=== PATIENT | female | born 1955 | race Two or more races ===

== ENCOUNTER → 2024-06-18 | Outpatient (CLI) | payer OTHER, SELFPAY ==
--- NOTE | 2024-06-18 15:30 | XR_ITS ---
Examination: PA lateral chest 2 views TECHNIQUE: Upright PA lateral chest 2 views Exam date and time: June 18, 2024 1537 hours Comparison January 13, 2024 INDICATIONS: Shortness breath chest pain beginning 10 days ago. FINDINGS: Mild CHF Mild to moderate enlargement cardiac contour Prominent vascular congestion including central vascular engorgement Septal edema at the lung bases IMPRESSION: Mild CHF Pulmonary artery hypertension Cardiac leads stable position
[2024-06-18 16:39] LABS: Basophils % (Auto) 0 % (0-2.5); Eosinophils # (Auto) 0.1 Thou/mm3 (0.0-0.5); Eosinophils % (Auto) 2 % (0-10); Hematocrit 24.5 % (36.0-46.0); Immature Granulocytes % (Auto) 1 % (0-0); Immature Granulocytes Auto 0.03 Thou/mm3 (0.00-0.00); Lymphocytes # (Auto) 0.8 Thou/mm3 (1.0-4.8); Lymphocytes % (Auto) 12 % (10-50); Mean Corpuscular HGB Conc 32.2 g/dl (31.0-37.0); Mean Corpuscular Hemoglobin 33.1 pg (25.0-35.0); Mean Corpuscular Volume 103 fL (80-100); Monocytes # (Auto) 0.5 Thou/mm3 (0.0-0.8); Monocytes % (Auto) 7 % (0-12); Neutrophils % (Auto) 78 % (37-80); Nucleated Red Blood Cell % 0 /100 WBC (0); Platelet Count 155 Thou/mm3 (140-440); RDW Standard Deviation 51.2 fL (36.4-46.3); Red Blood Count 2.39 Miln/mm3 (4.00-5.20); White Blood Count 6.4 Thou/mm3 (3.6-11.0)
[2024-06-18 17:06] LABS: B-Type Natriuretic Peptide 404 pg/mL (0-100)
[2024-06-18 17:23] LABS: Alanine Aminotransferase 10 U/L (10-49); Albumin/Globulin Ratio 2.1 (1.2-2.2); Alkaline Phosphatase 73 U/L (46-116); Anion Gap 6 (7-16); Aspartate Amino Transferase 11 U/L (0-34); BUN/Creatinine Ratio 21 Ratio (12-20); Bilirubin,Total 0.3 mg/dL (0.3-1.2); Blood Urea Nitrogen 27 mg/dL (9-23); Calcium 8.7 mg/dL (8.3-10.6); Calcium (Corrected) 8.7 mg/dL (8.5-10.1); Carbon Dioxide 23.2 mMol/L (20.0-31.0); Chloride 110 mMol/L (98-107); Creatinine (Component) 1.3 mg/dL (0.6-1.3); Globulin 1.9 gm/dL (2.3-3.5); Glucose 109 mg/dL (74-106); Osmolality,Calculated 283 (275-295); Potassium 4.3 mMol/L (3.4-5.1); Sodium 139 mMol/L (136-145); Total Protein 5.9 gm/dL (5.7-8.2); eGFR 44 See Note
[2024-06-18 17:32] LABS: Hemoglobin 7.9 g/dL (12.0-16.0)
[2024-06-18 17:44] LABS: Glucose Estimated Average 103 mg/dL (80-131); Hemoglobin A1C 5.2 % Hgb (4.8-6.0)
== END | disposition home or self-care (01) ==
LOC: COPL 15:15 → CDIM 15:20 → COPL 15:45
PROVIDERS: PCP Internal Medicine; Referring Provider Internal Medicine; Visit Provider Radiology Diagnostic Radiology
DX: I50.9 Heart failure, unspecified (principal); I27.21 Secondary pulmonary arterial hypertension; F41.8 Other specified anxiety disorders; M54.50 Low back pain, unspecified; N18.9 Chronic kidney disease, unspecified; R06.02 Shortness of breath
CPT/HCPCS: 36415; 71046; 80053; 83036; 83880; 85025

== ENCOUNTER 2024-06-20 11:41 | Inpatient (IN) | payer OTHER, MEDICARE, SELFPAY ==
[2024-06-20] VITALS (75 sets, daily range): BP systolic 69–219; BP diastolic 42–88; PULSE 0–80; RESP 13–37; TEMP 33.1–35; O2SAT 89–100; BMI 24.7; BMI 27.2
--- NOTE | 2024-06-20 11:45 | PC.NURSE ---
PT ARRIVED AT 1141 CODE BLUE, SEE CODE SHEET. PT WITNESSED CODE AT HOME
[2024-06-20] MEDS: SODIUM CHLORIDE 0.9% IV ×2 (11:50→14:38)
[2024-06-20] MEDS: EPINEPHRINE IV ×2 (11:50→14:38)
--- NOTE | 2024-06-20 11:52 | XR_ITS ---
Examination: AP chest single view TECHNIQUE: AP portable supine chest single view Exam date and time: June 20, 2024 1219 hours Comparison June 18, 2024 INDICATIONS: Cardiopulmonary arrest today FINDINGS: Interval extensive bilateral lung opacity Mild enlargement cardiac contour Tracheal tube tip 18 mm above janis Cardiac leads satisfactory position Orogastric tube in the stomach tip below the level film No pneumothoraces Clavicles ribs appear grossly intact IMPRESSION: Extensive bilateral lung opacity, pneumonia and/or pulmonary edema, aspiration pneumonia included in the differential No pneumothoraces Endotracheal tube tip 18 mm above janis
[2024-06-20 12:02] LABS: Basophils # (Auto) 0.1 Thou/mm3 (0.0-0.2); Basophils % (Auto) 0 % (0-2.5); Eosinophils # (Auto) 0.2 Thou/mm3 (0.0-0.5); Eosinophils % (Auto) 1 % (0-10); Hematocrit 27.3 % (36.0-46.0); Immature Granulocytes % (Auto) 4 % (0-0); Lymphocytes # (Auto) 2.5 Thou/mm3 (1.0-4.8); Lymphocytes % (Auto) 22 % (10-50); Mean Corpuscular HGB Conc 29.7 g/dl (31.0-37.0); Mean Corpuscular Hemoglobin 33.2 pg (25.0-35.0); Mean Corpuscular Volume 112 fL (80-100); Monocytes # (Auto) 0.8 Thou/mm3 (0.0-0.8); Monocytes % (Auto) 7 % (0-12); Neutrophils # (Auto) 7.3 Thou/mm3 (1.8-7.7); Neutrophils % (Auto) 65 % (37-80); Nucleated Red Blood Cell % 1 /100 WBC (0); Platelet Count 191 Thou/mm3 (140-440); RDW Standard Deviation 54.8 fL (36.4-46.3); Red Blood Count 2.44 Miln/mm3 (4.00-5.20); White Blood Count 11.3 Thou/mm3 (3.6-11.0)
[2024-06-20 12:05] LABS: Hemoglobin 8.1 g/dL (12.0-16.0)
--- NOTE | 2024-06-20 12:11 | PC.NURSE ---
PER DR. WHEATLEY GIVE 500 ML BOLUS AND OKAYED TO USE EMS LR BAG
--- NOTE | 2024-06-20 12:14 | PC.NURSE ---
DR. WHEATLEY DID STOOL OCB AND POSITIVE
[2024-06-20 12:15] LABS: Alanine Aminotransferase 33 U/L (10-49); Albumin, Serum 3.8 gm/dL (3.4-4.8); Albumin/Globulin Ratio 1.9 (1.2-2.2); Alcohol, Blood Medical < 3.0 mg/dL (0-10.0); Alkaline Phosphatase 78 U/L (46-116); Anion Gap 11 (7-16); Aspartate Amino Transferase 36 U/L (0-34); BUN/Creatinine Ratio 16 Ratio (12-20); Bilirubin,Total 0.2 mg/dL (0.3-1.2); Blood Urea Nitrogen 22 mg/dL (9-23); Calcium 8.7 mg/dL (8.3-10.6); Calcium (Corrected) 8.9 mg/dL (8.5-10.1); Chloride 110 mMol/L (98-107); Creatinine (Component) 1.4 mg/dL (0.6-1.3); Estimated Creatinine Clearance 33.6 mL/min (>60); Glucose 308 mg/dL (74-106); Osmolality,Calculated 283 (275-295); Potassium 5.1 mMol/L (3.4-5.1); Sodium 134 mMol/L (136-145); Total Protein 5.8 gm/dL (5.7-8.2); eGFR 40 See Note
[2024-06-20 12:20] LABS: Carbon Dioxide 12.8 mMol/L (20.0-31.0); Troponin I 0.097 ng/mL (0.0-0.045)
[2024-06-20 12:21] LABS: B-Type Natriuretic Peptide 553 pg/mL (0-100)
--- NOTE | 2024-06-20 12:44 | PC.NURSE ---
DR. WHEATLEY INFORMED THAT PT MOVING AND ORDER FOR PROPOFOL OBTAINED
[2024-06-20 12:47] LABS: Base Excess -19 (-3-3); HCO3 12 mEq/L (20-26); Inspired Oxygen, FIO2 100 %; O2 Saturation 96 % (91-98); PCO2 61 mmHg (32.0-48.0); PO2 115 mmHg (83-108)
[2024-06-20 12:50] LABS: Allen Test Performed/OK; Puncture Site Left Radial
[2024-06-20] MEDS: PROPOFOL 1,000 MG IVPB 1,000 MG/100 ML VIAL 1.905 MG IV (12:50)
[2024-06-20 12:52] LABS: pH, Arterial 6.91 (7.35-7.45)
--- NOTE | 2024-06-20 13:00 | PC.NURSE ---
I UNIT PACKED CELLS INFUSED WITHOUT REACTION. PER DR. WHEATLEY TO GIVE BLOOD WIDE OPEN
--- NOTE | 2024-06-20 13:00 | PD.EDCPR ---
ED CPR RME/HPI General Chief Complaint: Cardiac Arrest/CPR Stated Complaint: CODE BLUE Time Seen by Provider: 06/20/24 11:49 Arrival date/time: 06/20/24 11:41 RME / HPI RME / HPI narrative: 68 year old female with history of HFrEF 40-45% 01/2024, cardiomyopathy, AFib, s/p AICD, hypertension, GI bleed, iron deficiency anemia requiring iron transfusions every 2 weeks presents to the ED BIBA from home as a code blue. Per medics, on scene reported the patient was sitting on the toilet and was found on the floor, presumed she slipped off the toilet. Medics report giving Epinephrine x3, Atropine x1, and intubated en route. On arrival to ED, ROSC was not achieved and CPR is in progress. Patient was transferred from [facility] to [facility] and CPR resumed. in the ED is unable to provide any additional history and is a poor historian. Related Data Home Medications ?Medication ?Instructions ?Recorded ?Confirmed furosemide 80 mg tablet (Lasix) 80 mg PO QDAY #0 tabs 07/07/14 01/12/24 potassium chloride 20 mEq 20 meq PO QDAY ##0 07/07/14 01/12/24 tablet,extended release(part/cryst) (Klor-Con M) sertraline 100 mg tablet (Zoloft) 100 mg PO BID #0 tabs 11/15/16 01/12/24 sacubitril 24 mg-valsartan 26 mg 1 tab PO BID 04/05/22 01/12/24 tablet (Entresto) alprazolam 1 mg tablet 1.5 mg PO DAILY PRN Anxiety 03/18/23 01/12/24 carvedilol 12.5 mg tablet 12.5 mg PO BID 03/18/23 01/12/24 metformin 850 mg tablet 850 mg PO DAILY 03/18/23 01/12/24 hydrocodone 10 mg-acetaminophen 1 tab PO Q6H PRN Pain (Scale Score 01/12/24 01/12/24 325 mg tablet 7-10) Allergies Allergy/AdvReac Type Severity Reaction Status Date / Time ampicillin Allergy Severe Difficulty Verified 03/19/23 00:15 Breathing carranza Allergy Intermediate Rash Verified 03/19/23 00:15 aspirin AdvReac Severe BLEEDING Verified 03/19/23 00:15 ULCER Review of Systems Review of Systems Narrative Review of Systems: Unobtainable due to code blue status Past Medical History Past Medical History NEUROLOGIC: Positive Migraine CARDIAC: Positive Cardiac Disorders, Atrial Fibrillation, Coronary Artery Disease, Hypercholesterolemia, Congestive Heart Failure, Cardiomyopathy, Hypertension and Hypotension GASTROINTESTINAL: Positive Gastrointestinal Disorders, Gall Bladder Disease and Gastroesophageal Reflux Disease MUSCULOSKELETAL: Positive Musculoskeletal Disorders, Arthritis and Fractures ENDOCRINE: Positive Endocrine Disorders and Diabetes Mellitus Type 2 HEMATOLOGIC: Positive Blood Disorders and Anemia PSYCHO/SOCIAL: Positive Depression OTHER HISTORY: Positive Hospitalization, Falls and Blood Transfusions Family History FAMILY HISTORY: Positive Family Psychiatric Problems, Family Cardiac Disorders (dad-ID) and Family Cancer (sister) Surgical History SURGICAL: Positive Pacemaker and Hysterectomy Social History SMOKING STATUS: Unknown if ever smoked SECOND HAND EXPOSURE: No SUBSTANCE USE: does not use ED Exam Narrative Physical exam: Exam performed after ROSC GEN. APPEARANCE: On arrival patient is in cardiac-respiratory arrest with CPR in progress. VITALS: Hypotensive, stated on Dopamine and Epinephrine drips HEENT: Normocephalic, atraumatic. ET tube size 7 from the field. Throat clear. Pupils are fixed and dilated. NECK: Supple, no JVD. CHEST: No deformity and no crepitus. ABDOMEN: Soft, distended, no air bubble. RECTAL EXAM: Stool is black and tarry, guaiac strongly positive. EXTREMITIES: Flaccid. No spontaneous movements. No edema. SKIN: Cool and dry, no rashes noted. NEURO: GCS is 3. Course Course Course Narrative: chest xray ordered to help determine ET and OG tube placement Quality Measures none Orders Category Date Time Status 24 HR Medical Restraints Q2HR Care 06/20/24 12:36 Completed Musical Instrument Mechanic Q4H START 00 Care 06/20/24 11:52 Active Emergency Titration Protocol Stat Care 06/20/24 12:13 Ordered Fuentes [Urinary Catheter] QS Care 06/20/24 11:52 Active Insert NG / OG tube NOW Care 06/20/24 12:17 Completed Transfuse,blood/blood products NOW Care 06/20/24 12:16 Active XR chest 1V portable Stat Exams 06/20/24 11:52 Completed ABG [Arterial Blood Gas] Stat Lab 06/20/24 12:44 Completed Alcohol, Blood Medical Stat Lab 06/20/24 11:46 Completed BNP [B-Type Natriuretic Peptide] Stat Lab 06/20/24 11:46 Completed CBC Stat Lab 06/20/24 11:46 Completed CMP [Comprehensive Metabolic Panel] Stat Lab 06/20/24 11:46 Completed Drug Screen,Urine Stat Lab 06/20/24 11:54 Ordered Troponin I Stat Lab 06/20/24 11:46 Completed Type and Screen Stat Lab 06/20/24 12:27 Results prbc [Red Blood Cells] Stat Lab 06/20/24 12:27 Results DOPamine/D5w 400 MG IVPB [Intropin in D5w Ivpb] Med 06/20/24 12:18 Discontinued 400 mg in 250 ml IV 5 mcg/kg/min DOPamine/D5w 400 MG IVPB [Intropin in D5w Ivpb] Med 06/20/24 12:30 Active 400 mg in 250 ml IV 5 mcg/kg/min Propofol 1,000 mg Ivpb [Diprivan Ivpb] Med 06/20/24 12:43 Active 1,000 mg in 100 ml IV 5 mcg/kg/min Ringers Lactated 1000 ml [Lactated Ringers] 1,000 ml Med 06/20/24 13:19 Active IV 999 mls/hr Sodium Chloride 0.9% 250 ml [Ns] 234 ml Med 06/20/24 11:53 Discontinued EPINEPHrine Inj [Adrenalin Inj] 16 mg IV 0.05 mcg/kg/min Sodium Chloride 0.9% 250 ml [Ns] 234 ml Med 06/20/24 11:54 Discontinued EPINEPHrine Inj [Adrenalin Inj] 16 mg IV 0.05 mcg/kg/min Sodium Chloride 0.9% 250 ml [Ns] 246 ml Med 06/20/24 12:03 Active EPINEPHrine Inj [Adrenalin Inj] 4 mg IV 0.05 mcg/kg/min Sodium Chloride 0.9% 250 ml [Ns] 250 ml Med 06/20/24 12:00 Discontinued EPINEPHrine Inj [Adrenalin Inj] 4 mg IV 0.05 mcg/kg/min fentaNYL 2,500 MCG/250 ML BAG [Sublimaze Inj 2,500 MCG/ Med 06/20/24 13:13 Active 250 ML BAG] 2,500 mcg in 250 ml IV 50 mcg/hr Mechanical [Volume Ventilator] Stat RT 06/20/24 Active Vital Signs Vital signs: Vital Signs Pulse Rate 60 06/20/24 11:00 Respiratory Rate 18 06/20/24 11:00 Blood Pressure 108/79 06/20/24 11:00 Pulse Oximetry (%) 96 06/20/24 11:00 Cardiac Arrest / CPR MDM Narrative MDM Narrative:: Brought into the emergency department by ambulance from home. The patient was seen for CODE BLUE status. Amusement Park Ride Mechanic already intubated the patient en route to the hospital. 3 epinephrine boluses was given by envelope stuffer en route. And CPR was in progress upon arrival. We took over CPR continue and ACLS protocol was followed. Eventually the patient regained her pulses. But remain comatose. IV epinephrine drip was given post code. History of GI bleed therefore I did rectal examination on the patient in the presence of nurses. Stool was tarry black and guaiac was strongly positive. Hemoglobin was 8 therefore I am giving the patient 1 unit of O- blood. While we waiting for the rest of the blood test results come back. Hemoglobin of 8. Bicarb of 13 status post CODE BLUE. Creatinine 1.4. Blood sugar is 300. Troponin is 0.0 97. BNP is 550. Alcohol level is negative. Talk screen is still pending. Chest x-ray postintubation and CODE BLUE read by me: Evidence of CHF bilaterally versus pneumonia bilaterally. Heart is enlarged. AICD is in place. No pneumothorax. No broken bones. Twelve-lead EKG that was done at 11:55 AM post successful resuscitation read by me: Pacemaker rhythm with 100% capture. Regular rate and rhythm. Widened QRS complex consistent with pacemaker AICD. Left axis deviation. In the emergency department the patient was given up to 600 mL of Ringer lactate, IV epinephrine drip continuously running, and 1 unit of packed red blood cell was given to the patient. Vital signs have improved and stable. Blood pressure was 120/70. 1:07 PM, I spoke to and discussed with Dr. Larios, integrated marketing specialist on-call. She agrees to admit the patient for further evaluation and treatment. Thank you very much Critical care time is approximately 55 minutes excluding any procedure. The high probability of sudden, clinically significant deterioration in the patient?s condition required the highest level of my preparedness to intervene urgently. The services I provided to this patient were to treat and/or prevent clinically significant deterioration. Services included the following: chart data review, reviewing nursing notes and/or old charts, documentation time, renewable energy consultant collaboration regarding findings and treatment options, medication orders and management, direct patient care, vital sign assessments and ordering, interpreting and reviewing diagnostic studies and lab tests. Aggregate critical care time includes only time during which I was engaged in work directly related to the patient?s care, as described above, whether at bedside or elsewhere in the Emergency Department. It did not include time spent performing other reported procedures or the services of residents, students, nurses or physician assistants. Patient data External records reviewed:: [facility] previous records (I reviewed admission from 01/11/2024 through 01/15/2024 ) and EMS form Clinical information provided by:: EMS Social determinants that could affect healthcare access:: none Patient has the following chronic illnesses:: HFrEF 40-45% 01/2024, cardiomyopathy, AFib, s/p AICD, hypertension, GI bleed, iron deficiency anemia requiring iron transfusions every 2 weeks How is presenting disease/condition affected by chronic disease/condition?: exacerbated by Evaluation data The following diagnostics were reviewed and interpreted by me:: lab results, radiology exam(s) and EKG tracing(s) Lab and/or radiology exams considered but not ordered:: None Interpretation Summary: Ordering Physician: Otto Pulliam MD Date of Service: 06/20/24 Procedure(s): XR chest 1V portable Accession Number(s): [id number] cc: Bull Justice MD; Otto Pulliam MD; Niyah Calix MD~ Examination: AP chest single view TECHNIQUE: AP portable supine chest single view Exam date and time: June 20, 2024 1219 hours Comparison June 18, 2024 INDICATIONS: Cardiopulmonary arrest today FINDINGS: Interval extensive bilateral lung opacity Mild enlargement cardiac contour Tracheal tube tip 18 mm above janis Cardiac leads satisfactory position Orogastric tube in the stomach tip below the level film No pneumothoraces Clavicles ribs appear grossly intact IMPRESSION: Extensive bilateral lung opacity, pneumonia and/or pulmonary edema, aspiration pneumonia included in the differential No pneumothoraces Endotracheal tube tip 18 mm above janis Dictated By: Bull Justice MD Signed By: <Electronically signed by Bull Justice MD in OV> 06/20/24 1254 Medications / Prescriptions Medications or Prescriptions considered but not ordered:: None Medication administrations:: Medication Administration History Epinephrine HCl 4 mg/ Sodium (Chloride) 250 mls @ 11.907 mls/hr IV .Q21H PRN; Protocol PRN Reason: Per Protocol Stop: 07/20/24 11:59 Last Titration: 06/20/24 13:00 Dose: 0.48 mcg/kg/min, 114.305 mls/hr Documented By: Titration: 06/20/24 12:11 Dose: 0.5 mcg/kg/min, 119.068 mls/hr Documented By: Titration: 06/20/24 12:07 Dose: 0.09 mcg/kg/min, 21.432 mls/hr Documented By: Titration: 06/20/24 12:02 Dose: 0.07 mcg/kg/min, 16.67 mls/hr Documented By: Admin: 06/20/24 11:50 Dose: 0.05 mcg/kg/min, 11.907 mls/hr Documented By: KDC Dopamine HCl/Dextrose (Intropin In D5w Ivpb) 400 mg in 250 mls @ 11.907 mls/hr IV .Q21H NATHAN; Protocol Stop: 07/20/24 12:29 Propofol (Diprivan Ivpb) 1,000 mg in 100 mls @ 1.905 mls/hr IV .Q24H PRN; Protocol PRN Reason: PER PROTOCOL Stop: 07/20/24 12:42 Last Titration: 06/20/24 13:26 Dose: 15 mcg/kg/min, 5.715 mls/hr Documented By: Titration: 06/20/24 13:10 Dose: 10 mcg/kg/min, 3.81 mls/hr Documented By: Admin: 06/20/24 12:50 Dose: 5 mcg/kg/min, 1.905 mls/hr Documented By: KDC Co-signed By: IAN Fentanyl Citrate (Sublimaze Inj 2,500 Mcg/250 Ml Bag) 2,500 mcg in 250 mls @ 5 mls/hr IV .Q24H PRN; Protocol PRN Reason: PER PROTOCOL Stop: 06/25/24 13:12 Last Admin: 06/20/24 13:24 Dose: 50 mcg/hr, 5 mls/hr Documented By: KDC Co-signed By: IAN Lactated Ringer's (Lactated Ringers) 1,000 mls @ 999 mls/hr IV .Q1H1M ONE Stop: 06/20/24 14:19 Discontinued Medications Epinephrine HCl 16 mg/ Sodium (Chloride) 250 mls @ 2.977 mls/hr IV .Q24H PRN; Protocol PRN Reason: Per Protocol Stop: 07/20/24 11:52 Epinephrine HCl 16 mg/ Sodium (Chloride) 250 mls @ 2.977 mls/hr IV .Q24H PRN; Protocol PRN Reason: Per Protocol Stop: 07/20/24 11:53 Epinephrine HCl 4 mg/ Sodium (Chloride) 254 mls @ 12.097 mls/hr IV .Q21H PRN; Protocol PRN Reason: Per Protocol Stop: 07/20/24 11:59 Dopamine HCl/Dextrose (Intropin In D5w Ivpb) 400 mg in 250 mls @ 11.907 mls/hr IV .Q21H NATHAN; Protocol Stop: 07/20/24 12:17 See above Consultations Consultation(s) initiated? (list below): Yes Consultation #1 (Physician, Specialty, Details): I spoke with mcat instructor Dr. Larios as noted above. Diagnosis Most likely diagnosis given after review of the tests above:: Cardiac arrest anemia Admission Indicated Admission indicated?: indicated Admission Request Was there a request for admission?: Yes Admission Attestation Admission request attestation: Discussed case with [] from Hospitalist service regarding admission. Discussed patients ED course, exam findings, labs, and radiology results. The Hospitalist [agrees,declines] to accept the patient for admission. Disposition Plan Disposition Plan: Admit Critical Care Time Critical Care Time Critical Care Time: Yes Total Critical Care Time (min.): 55 Attestation: The high probability of sudden, clinically significant deterioration in the patient's condition required the highest level of my preparedness to intervene urgently. The services I provided to this patient were to treat and/or prevent clinically significant deterioration. Services included the following: chart data review, reviewing nursing notes and/or old charts, documentation time, renewable energy consultant collaboration regarding findings and treatment options, medication orders and management, direct patient care, vital sign assessments and ordering, interpreting and reviewing diagnostic studies and lab tests. Aggregate critical care time includes only time during which I was engaged in work directly related to the patient's care, as described above, whether at bedside or elsewhere in the Emergency Department. It did not include time spent performing other reported procedures or the services of residents, students, nurses or physician assistants. Discharge Plan Plan Patient Disposition: Admit Acute Care w/in Hospital Disposition Comment: Stable for admit to ICU Prescriptions/Referrals Prescriptions/Med Rec: No Action potassium chloride [Klor-Con M20] 20 MEQ tablet,ER particles/crystals 20 meq PO QDAY Qty: 0 furosemide [Lasix] 80 MG tablet 80 mg PO QDAY Qty: 0 Hold Instructions: Resume on 01/17/24. start lasix same day resuming warfarin 01/17/2024 sertraline [Zoloft] 100 MG tablet 100 mg PO BID Qty: 0 Entresto 24-26 mg Tablet 1 tab PO BID carvedilol 12.5 mg tablet 12.5 mg PO BID alprazolam 1 mg tablet 1.5 mg PO DAILY PRN (Reason: Anxiety) metformin 850 mg tablet 850 mg PO DAILY hydrocodone-acetaminophen 10-325 mg tablet 1 tab PO Q6H PRN (Reason: Pain (Scale Score 7-10)) Referrals: Niyah Calix MD [Primary Care Provider] - In 1 week Problem List Clinical Impression: Cardiac arrest, Anemia, Stool guaiac positive Patient/Caregiver Discharge Instructions Print Language: Setswana Stand Alone Forms: Serina Award Info., Patient Portal Info Letter
--- NOTE | 2024-06-20 13:21 | PC.NURSE ---
DR. COLE IN ROOM TO EVALUATE PT AND THERE WAS DELAY IN TITRATING MEDICATIONS
[2024-06-20] MEDS: fentaNYL 2,500 MCG/250 ML BAG 2,500 MCG/250 ML BAG IV (13:24)
--- NOTE | 2024-06-20 13:31 | PC.NURSE ---
DR. WHEATLEY DID STOOL OCB THEN THREW SLIDE AWAY. PER MD OCB POSITIVE
[2024-06-20] MEDS: RINGERS LACTATED 1000 ML 1,000 ML 999 ML IV (13:33)
--- NOTE | 2024-06-20 13:36 | PC.NURSE ---
RESIDENTS HERE TO SEE PT
--- NOTE | 2024-06-20 13:37 | PC.NURSE ---
PER DR. WHEATLEY ONLY GIVEN 1 UNIT PACKED CELLS
--- NOTE | 2024-06-20 13:45 | PC.NURSE ---
PER DR. HARVEY ARROYO TESCT
--- NOTE | 2024-06-20 13:46 | PC.NURSE ---
DELAYED TITRATING DRIPS DUE TO MULTIPLE DOCTORS IN ROOM SEEING PT
--- NOTE | 2024-06-20 13:55 | PC.NURSE ---
PT FINALLY HAS SMALL AMOUNT URINE IN ELMORE TUBING
--- NOTE | 2024-06-20 14:00 | ESPR_ITS ---
Documentation for date of: 06/20/24 Subjective Subjective Interval history: This is a 68yo F who was brought to the ER s/p cardiac arrest. Apparently she was in the bathroom earlier today and had a syncopal event. EMS was called and on arrival she was found to be pulseless and CPR was initiated. ROSC was achieved after 3 rounds of epi. During transit pulse was lost once more and CPR resumed. Pt was undergoing CPR on arrival to the ER. ROSC was achieved after arrival and pt felt to have had a total downtime of ~20min. Pts initial rhythm is unknown. In the ER labs were obtained after ROSC as well as CXR. CXR shows diffuse fluffy infiltrates and labs are significant for severe acidosis. Rectal exam done in the ER showed a pos hemoccult. pt seen in ER room 2. Per family pt has has SOB for the last 2 days. She visited her PCP and had labs and a CXR done. Has had changes to her cardiac regimen over the last 2 months. This AM very SOB, went to the bathroom and called out for help then collapsed. Critical Care Note Critical care time (min.): 90 Exam Vital Signs Temp Pulse Resp BP Pulse Ox O2 Del Method O2 Flow Rate 95 F L 62 20 136/67 H 97 Mechanical Ventilation 15 06/20/24 12:55 06/20/24 13:01 06/20/24 13:01 06/20/24 13:01 06/20/24 13:01 06/20/24 12:00 06/20/24 11:41 FiO2 100 06/20/24 12:16 Narrative Exam Gen- ill appearing, myoclonic jerks of mouth and face, pupils dilated and minimally reactive, nl body habitus HEENT- NC/AT, mucosa hydated, sclera anicteric, pupils dilated, ETT/OGT in place Chest- diminished, no crackles/wheeze heard, HRRR, WOB noted Abd- distended, soft/bs present, no palp organomegaly, Ext- bruising over L distal LE, pulses palp, feet cool, Vent AC VC drips epi 0.5mcg/kg/min prop fent Physical Exam Completion Physical Exam Complete?: Yes Objective - Nutrition Services Worker Labs 06/21/24 03:35 06/21/24 03:35 Labs: Laboratory Results - last 24 hr 06/20/24 06/20/2424 11:46 12:27 12:44 WBC 11.3 H D RBC 2.44 L Hgb 8.1 L Hct 27.3 L MCV 112 H MCH 33.2 MCHC 29.7 L RDW Std Deviation 54.8 H Plt Count 191 D Neut % (Auto) 65 Lymph % (Auto) 22 [place] % (Auto) 7 Eos % (Auto) 1 Baso % (Auto) 0 Neut # (Auto) 7.3 Lymph # (Auto) 2.5 [place] # (Auto) 0.8 Eos # (Auto) 0.2 Baso # (Auto) 0.1 Immature Gran # (Auto) 0.50 H Absolute Nucleated RBC 0.10 H Immature Gran % 4 H Nucleated RBC % 1 H Puncture Site Left Radial ABG pH 6.91 L* ABG pCO2 61 H ABG pO2 115 H ABG HCO3 12 L ABG O2 Saturation 96 ABG Base Excess -19 L FiO2 100 Sodium 134 L Potassium 5.1 D Chloride 110 H Carbon Dioxide 12.8 L* Anion Gap 11 BUN 22 Creatinine 1.4 H Estim Creat Clear Calc 33.6 L eGFR 40 L BUN/Creatinine Ratio 16 Glucose 308 H D Calculated Osmolality 283 Calcium 8.7 Corrected Calcium 8.9 Total Bilirubin 0.2 L AST 36 H ALT 33 Alkaline Phosphatase 78 Troponin I 0.097 H* B-Natriuretic Peptide 553 H* Total Protein 5.8 Albumin 3.8 Globulin 2.0 L Albumin/Globulin Ratio 1.9 Ethyl Alcohol < 3.0 Blood Type A Positive Antibody Screen NEGATIVE Crossmatch See Detail Blood Bank Wristband ID Yes Assessment & Plan Additional Assessment Additional Assessment: In brief this is a 68yo F admitted to the ICU s/p arrest 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 will obtain HCT for further eval. started on fentanyl and propofol for vent compliance CV s/p cardiac arrest- will place pt on TTM with goal 36c, avoid hyperthermia shock- in a post arrest setting of unclear etiology. Will obtain additional data with [facility] for hemodynamics and bedside echo. when seen pt had initially not received any IVF and was then ordered for 2lts of IVF. started on abx, currently on epi which is being titrated down. LA noted to be elevated. HFrEF- s/p ICD, BNP noted to be elevated, will diures when able, device will be interrogated Pulmonary HTN- noted on prior echo Resp Acute Resp failure- s/p intubation and on MV, CXR noted with fluffy infiltrates, ABG noted with resp acidosis and vent changes made. will repeat ABG to further eval. vent bundle Aspiration- likely occurred during down time, on abx for further coverage Pulmonary edema- will start diuresis when able Respiratory acidosis- Ve increased on vent and will recheck ABG Renal AMNA- likely due to hypotension, marsh in place, monitor UOP HypoNa- mild, monitor GI Transaminitis- fu on repeat CMP in AM GI proph- PPI ? GIB- reported as hemoccult pos with black stools therefore started on PPI, will recheck h/h Endo DM- SSI Heme Leukocytosis- likely reactive in nature Anemia- near baseline, will fu with repeat h/h as there was suspicion for GIB in the ER DVT proph- SCD for now ID on abx case d/w ICU team and ER Discussed with family labs, imaging, records reviewed ~90ccmin required for eval, exam, review, intervention, discussion and formulation of POC for this critically ill pt with acute resp failure and shock at high risk for further and ongoing decompensation. This does not include time for procedures. Provider Notation Provider Notation: Although this document has been carefully reviewed, there may still be some phonetic and other typographical errors. These errors are purely grammatical due to imperfections in the software program and should not be construed in any way to compromise the substance of the patient's medical care during this visit. Thank you for the opportunity and privilege in assisting you with this patient's care and management.
--- NOTE | 2024-06-20 14:01 | XR_ITS ---
Examination: CT brain head without contrast. 2-D sagittal coronal reconstructions Date and time of exam:June 20, 2024 1535 hours INDICATIONS: Post cardiopulmonary arrest today CTDI: vol (mGy):52.1 DLP: (mGycm):1144 Technique: Multiple CT axial sections of the brain have been obtained, 5 mm slice thickness. Contrast has not been administered. 2-D sagittal, coronal reconstructions have been obtained Low dose protocols were performed. One or more of the following dose reduction techniques were used; automated exposure control, adjustment of the mA and/or KV according to patient size, use of iterative reconstruction technique. Findings: No significant ventricular enlargement. Again noted calcified right parietal convexity mass, 3 cm consistent with incidental meningioma Intra-axial or extra-axial hemorrhage density is not seen. No mass effect or midline shift Basal cisterns are not remarkable. Fourth ventricle is midline. Cranial vault intact. Impression: Negative for acute hemorrhage, mass effect or midline shift Brain MRI follow-up would best assess for anoxic ischemic change, if the patient's cardiac leads are MRI compatible
[2024-06-20 14:06] LABS: Base Excess -15 (-3-3); HCO3 15 mEq/L (20-26); Inspired Oxygen, FIO2 100 %; O2 Saturation 99 % (91-98); PCO2 53 mmHg (32.0-48.0); PO2 159 mmHg (83-108)
[2024-06-20 14:09] LABS: Allen Test Performed/OK; Puncture Site Left Radial
[2024-06-20 14:10] LABS: pH, Arterial 7.06 (7.35-7.45)
--- NOTE | 2024-06-20 14:19 | PC.NURSE ---
PER DR. COLE TITRATE BOTH FENTANYL AND PROPOFOL TO -2 RASS
--- NOTE | 2024-06-20 14:25 | PC.NURSE ---
FAMILY BROUGHT INTO ROOM TO SEE PT AND QUESTIONS ANSWERED. INFORMED THAT PT WILL BE GOING TO ICU WHEN THE ROOM IS READY
--- NOTE | 2024-06-20 14:29 | ECHO_ITS ---
Transthoracic Echo Report Ht (in): 63 Wt (lb): 140 Exam Location: Echo Lab Status: Emergency Emissions Technician: Rizwana Moore Indications: Procedure Performed: BP: 121 / 58 HR: 28 Rhythm: Sinus Technical Quality: Technically difficult study MEASUREMENTS (Male / Female) Normal Values 2D ECHO LV Diastolic Diameter PLAX 4.3 cm 4.2 - 5.9 / 3.9 - 5.3 cm LV Systolic Diameter PLAX 3.7 cm IVS Diastolic Thickness 1.2 cm 0.6 - 1.0 / 0.6 - 0.9 cm LVPW Diastolic Thickness 1.3 cm 0.6 - 1.0 / 0.6 - 0.9 cm LV Relative Wall Thickness 0.6 LVOT Diameter 1.8 cm Aortic Root Diameter 2.7 cm LA Volume Index 67.2 cm?/m? 16 - 28 cm?/m? M-MODE AV Cusp Separation MM 1.7 cm DOPPLER AV Peak Velocity 189.0 cm/s AV Peak Gradient 14.3 mmHg AV Mean Gradient 8.0 mmHg AV Velocity Time Integral 61.1 cm LVOT Peak Velocity 102.0 cm/s LVOT Peak Gradient 4.2 mmHg LVOT Velocity Time Integral 23.4 cm LVOT Cardiac Index 985.7 cm?/min?m? AV Area Cont Eq vti 1.0 cm? AV Area Cont Eq pk 1.4 cm? MR Peak Velocity 623.0 cm/s MR Peak Gradient 155.3 mmHg LV E' Lateral Velocity 6.5 cm/s LV E' Septal Velocity 6.0 cm/s TR Peak Velocity 356.5 cm/s TR Peak Gradient 50.8 mmHg PV Peak Velocity 109.0 cm/s PV Peak Gradient 4.8 mmHg FINDINGS Left Ventricle Normal left ventricular size and systolic function with mild global hypokinesis no regional wall mot ion abnormalities.Mild LVH. The ejection fraction is visually estimated at 40-45%. Right Ventricle The right ventricle appears mildly dilated with normal systolic function. Left Atrium The left atrial cavity size is severely increased. Right Atrium Right atrium is not well visualized. Atrial Septum The interatrial septum appears normal with no evidence of a shunt. Aorta The aorta is normal by two-dimensional, color flow and Doppler interrogation. Mitral Valve Severe mitral regurgitation. Aortic Valve The aortic valve is trileaflet and normal by two-dimensional, color flow and Doppler interrogation. There is no significant aortic valve regurgitation. Tricuspid Valve There is moderate tricuspid regurgitation. Pulmonic Valve The pulmonic valve is not well visualized. There is no significant pulmonic valve regurgitation. Vessels The pulmonary artery appears normal. The inferior vena cava pulmonary and hepatic veins appear valente l. Pericardium The pericardium is normal by two-dimensional imaging. There is no significant pericardial effusion. CONCLUSIONS Indication: S/P code Blue Normal LV size. Mild LVH. Estimated EF 40- 45%. RV appears mildly dilated with normal systolic function. Pacing leads seen Severely dilated LA. Severe 3-4+mitral regurgitation Moderate tricuspid regurgitation Moderate pulmonary hypertension PAP est 60 mm hG Donna Valero (Electronically Signed) Final Date: 22 June 2024 10:07
[2024-06-20 14:37] LABS: Lactate (Lactic Acid) 3.7 mMol/L (0.4-2.0)
--- NOTE | 2024-06-20 14:40 | PC.NURSE ---
DELAY TITRATING EPI DUE TO NEED TO MIX NEW BAG
[2024-06-20] MEDS: PANTOPRAZOLE INJ 40 MG VIAL IVP (14:49)
[2024-06-20 14:55] LABS: Collection Type, Urine Catheter
[2024-06-20 15:03] LABS: Bilirubin,Urine Negative (Negative); Blood,Urine 2+ (Negative); Color,Urine Yellow (Lt Yel-Yel); Glucose, Urine 4+ (Negative); Ketones,Urine Negative (Negative); Leukocyte Esterase,Urine Negative (Negative); Nitrite,Urine Negative (Negative); Protein,Urine 2+ (Neg - Trace); RBC,Urine 76 /hpf (0-3); Specific Gravity,Urine 1.014 (1.001-1.035); Squamous Epithelial Cell,Urine 5 /hpf (0-5); Urobilinogen,Urine Negative mg/dL (0.0-1.0); WBC,Urine 24 /hpf (0-5)
[2024-06-20 15:06] LABS: Clarity,Urine Hazy (Clear/Hazy)
[2024-06-20 15:11] LABS: Amphetamine/Methamp Scrn,U Negative (Negative); Barbiturate Screen,Urine Negative (Negative); Benzodiazepines Screen,Urine Positive (Negative); Benzoylecgonine Screen, Ur Negative (Negative); Fentanyl Screen,Urine Positive (Negative); Opiate Screen,Urine Negative (Negative); THC Screen,Urine Negative (Negative)
--- NOTE | 2024-06-20 15:31 | PC.NURSE ---
PT TAKEN TO CT AND EPI TITRATION NOT DONE
--- NOTE | 2024-06-20 16:03 | ESHP_ITS ---
<Statement entered by Johanny Keyes MD - 06/23/24 05:23> Patient was seen and examined by me personally. I have directly supervised and reviewed the above documentation by the team resident and agree with its findings with any exceptions or additional findings as below. Plan of care was discussed with the attending, Dr. Larios. Johanny Keyes, PGY-2 Documentation for date of: 06/20/24 HPI History of Present Illness Chief complaint: status post cardiac arrest History of present illness: The patient is a 68-year-old female with a previous medical history of HFpEF EF 40-45% 01/27, nonischemic cardiomyopathy, W[employer]ER-D placement, A-fib on warfarin (chart review), hypertension, anemia who was brought to the ED by EMS in cardiac arrest. Exact time of the cardiac arrest is unknown, most of the history was received per chart review, she was seated on the toilet and slumped over. According to the family, she experienced shortness of reath and chest discomfort in the previous day and visitied her PCP. Also family reported when she lost consciousness, she did not fall, just slumped over, did not hit her head. She arrived to the ED at 11:41, on the way she received epinephrine 1 mg 3 times, atropine and was intubated. After 4 minutes of resuscitation measures in the ED and 1 round of epi, ROSC was obtained. The total down time is unknown but estimated to be at least 20 minutes. Her blood pressure was low and she was started on epinephrine drip, she was also started on propofol and fentanyl for sedation. Labs showed leukocytosis, anemia 8.1, INR 4.0. ABG showed severe acidosis. Sodium 134, bicarb 12.8, creatinine 1.4, troponin 0.097, BNP 553. U tox was done after starting fentanyl, was positive for benzodiazepines and fentanyl. UA showed 24 WBCs. Chest x-ray showed bilateral pneumonia, possible aspiration compared to the chest x-ray done on 06/18 which appears unremarkable. Patient was admitted to the ICU for shock and post-cardiac arrest management and treatment. Review of Systems Review of Systems ROS Unobtainable: unobtainable due to mental status, unobtainable due to medical condition and due to endotracheal tube Exam Vital Signs Temp Pulse Resp BP Pulse Ox O2 Del Method O2 Flow Rate 95 F L 60 28 H 85/42 L 97 Mechanical Ventilation 15 06/20/24 12:55 06/20/24 14:41 06/20/24 14:41 06/20/24 14:41 06/20/24 14:41 06/20/24 12:00 06/20/24 11:41 FiO2 100 06/20/24 12:16 Narrative Exam Gen: Well-developed and well-nourished. GCS 3. HEENT: NCAT, pupils equal, dilated 4 mm, sluggishly reactive to light, no gaze fixation, MMM, anicteric conjunctivae. CVS: normal S1 and S2. RRR. No M/R/G. Resp: CTA B/L. No rhonchi, rales, crackles or wheezing. Abd: soft, non-tender, non-distended. BS+ in all 4 quadrants. MSK: Good ROM in BUE & BLE. Mild ankle edema , no rash. Extremities are cold to the touch, poor capillary refill. Neuro: Alert and oriented x0. Pupils equal, dilated 4 mm, sluggishly reactive to light, no gaze fixation. Corneal reflex absent. During suctioning no cough. Bilateral facial and extremities muscles myoclonic jerks with forced eye opening. Babinski negative bilateral. Psych: impossible to assess due to condition. Results: Labs 06/21/24 03:35 06/21/24 03:35 Labs: Short CBC 06/20/24 Range/Units 11:46 WBC 11.3 H D (3.6-11.0) Thou/mm3 Hgb 8.1 L (12.0-16.0) g/dL Hct 27.3 L (36.0-46.0) % Plt Count 191 D (140-440) Thou/mm3 BMP 06/20/24 11:46 Sodium 134 L Potassium 5.1 D Chloride 110 H Carbon Dioxide 12.8 L* BUN 22 Creatinine 1.4 H Glucose 308 H D Calcium 8.7 Cardiac Enzymes 06/20/24 Range/Units 11:46 Troponin I 0.097 H* (0.0-0.045) ng/mL Liver Function 06/20/24 Range/Units 11:46 Total Bilirubin 0.2 L (0.3-1.2) mg/dL AST 36 H (0-34) U/L ALT 33 (10-49) U/L Alkaline Phosphatase 78 (46-116) U/L Albumin 3.8 (3.4-4.8) gm/dL Urine 06/20/24 Range/Units 14:43 Urine Color Yellow (Lt Yel-Yel) Urine Clarity Hazy (Clear/Hazy) Urine pH 6.0 (5.0-7.0) Ur Specific [place] 1.014 (1.001-1.035) Urine Protein 2+ A (Neg - Trace) Urine Glucose (UA) 4+ A (Negative) ABG Interpretation ABG results: 06/20/24 06/20/24 12:44 13:58 ABG pH 6.91 L* 7.06 L* D ABG pCO2 61 H 53 H ABG pO2 115 H 159 H D ABG HCO3 12 L 15 L ABG O2 Saturation 96 99 H ABG Base Excess -19 L -15 L Quality Measures Quality Measures none Advance care planning discussed with:: other Medications Home Medications and Allergies Home Medications ?Medication ?Instructions ?Recorded ?Confirmed ?Type furosemide 80 mg tablet (Lasix) 20 mg PO QDAY #0 tabs 07/07/14 06/20/24 History potassium chloride 20 mEq 20 meq PO QDAY ##0 07/07/14 06/20/24 History tablet,extended release(part/cryst) (Klor-Con M) sertraline 100 mg tablet (Zoloft) 100 mg PO BID #0 tabs 11/15/16 06/20/24 History sacubitril 24 mg-valsartan 26 mg 1 tab PO BID 04/05/22 01/12/24 History tablet (Entresto) alprazolam 1 mg tablet 1.5 mg PO DAILY PRN Anxiety 03/18/23 06/20/24 History carvedilol 12.5 mg tablet 12.5 mg PO BID 03/18/23 06/20/24 History hydrocodone 10 mg-acetaminophen 1 tab PO Q6H PRN Pain (Scale Score 01/12/24 06/20/24 History 325 mg tablet 7-10) warfarin 5 mg tablet 5 mg 06/20/24 History Allergies Allergy/AdvReac Type Severity Reaction Status Date / Time ampicillin Allergy Severe Difficulty Verified 03/19/23 00:15 Breathing carranza Allergy Intermediate Rash Verified 03/19/23 00:15 aspirin AdvReac Severe BLEEDING Verified 03/19/23 00:15 ULCER Visit Medications Acetaminophen (Acetaminophen 325 Mg Tablet) 650 mg PO Q4HR PRN PRN Reason: Temp >98.6 or Pain Stop: 07/20/24 14:18 Acetaminophen (Acetaminophen Supp 650 Mg Supp) 650 mg AR Q4HR PRN PRN Reason: Temp >98.6 or Pain Stop: 07/20/24 14:18 Heparin Sodium (Porcine) (Heparin Sod Inj 5000 Unit/Ml Vial) 5,000 unit SC Q12HR NATHAN Stop: 07/04/24 20:59 Epinephrine HCl 4 mg/ Sodium (Chloride) 250 mls @ 11.907 mls/hr IV .Q21H PRN; Protocol PRN Reason: Per Protocol Stop: 07/20/24 11:59 Last Titration: 06/20/24 15:29 Dose: 0.4 mcg/kg/min, 95.255 mls/hr Propofol (Diprivan Ivpb) 1,000 mg in 100 mls @ 1.905 mls/hr IV .Q24H PRN; Protocol PRN Reason: PER PROTOCOL Stop: 07/20/24 12:42 Last Titration: 06/20/24 15:11 Dose: 35 mcg/kg/min, 13.336 mls/hr Fentanyl Citrate (Sublimaze Inj 2,500 Mcg/250 Ml Bag) 2,500 mcg in 250 mls @ 5 mls/hr IV .Q24H PRN; Protocol PRN Reason: PER PROTOCOL Stop: 06/25/24 13:12 Last Titration: 06/20/24 15:11 Dose: 50 mcg/hr, 5 mls/hr Cefepime HCl 2 gm/ Sodium (Chloride) 50 mls @ 100 mls/hr IV Q12HR [facility] Stop: 06/27/24 15:38 Vancomycin HCl (Vancomycin/Water 1gm Ivpb) 200 mls @ 120 mls/hr IV QDAY@1400 [facility] Stop: 06/27/24 15:59 Pantoprazole Sodium (Pantoprazole Inj 40 Mg Vial) 40 mg IVP QDAY [facility] Stop: 07/20/24 14:29 Last Admin: 06/20/24 14:49 Dose: 40 mg Pharmacy Consult (Vancomycin Pharmacy To Dose 1 Each Each) 1 each IV QDAY PRN PRN Reason: PROTOCOL Stop: 07/20/24 15:44 Discontinued Medications Acetaminophen (Acetaminophen 325 Mg Tablet) 650 mg PO Q4HR PRN PRN Reason: Temp >100.4 or Pain Stop: 07/20/24 14:18 Acetaminophen (Acetaminophen Supp 650 Mg Supp) 650 mg AR Q4HR PRN PRN Reason: Temp >100.4 or Pain Stop: 07/20/24 14:18 Epinephrine HCl 16 mg/ Sodium (Chloride) 250 mls @ 2.977 mls/hr IV .Q24H PRN; Protocol PRN Reason: Per Protocol Stop: 07/20/24 11:52 Epinephrine HCl 16 mg/ Sodium (Chloride) 250 mls @ 2.977 mls/hr IV .Q24H PRN; Protocol PRN Reason: Per Protocol Stop: 07/20/24 11:53 Epinephrine HCl 4 mg/ Sodium (Chloride) 254 mls @ 12.097 mls/hr IV .Q21H PRN; Protocol PRN Reason: Per Protocol Stop: 07/20/24 11:59 Dopamine HCl/Dextrose (Intropin In D5w Ivpb) 400 mg in 250 mls @ 11.907 mls/hr IV .Q21H NATHAN; Protocol Stop: 07/20/24 12:29 Dopamine HCl/Dextrose (Intropin In D5w Ivpb) 400 mg in 250 mls @ 11.907 mls/hr IV .Q21H NATHAN; Protocol Stop: 07/20/24 12:17 Lactated Ringer's (Lactated Ringers) 1,000 mls @ 999 mls/hr IV .Q1H1M ONE Stop: 06/20/24 14:19 Last Infusion: 06/20/24 14:35 Dose: Infused Assessment & Plan Plan The patient is a 68-year-old female with a previous medical history of HFpEF EF 40-45% 01/27, nonischemic cardiomyopathy, [employer]ER-D placement, A-fib on warfarin (chart review), hypertension, anemia who was brought to the ED by EMS in cardiac arrest. Exact time of the cardiac arrest is unknown, most of the history was received per chart review, she was seated on the toilet and found slumped over. She arrived to the ED at 11: 41, on the way she received epinephrine 1 mg 3 times, atropine and was intubated. After 4 minutes of resuscitation measures, ROSC was obtained. Her blood pressure was low and she was started on epinephrine drip, she was also started on propofol and fentanyl for sedation. Patient was admitted to the ICU for shock and post-cardiac arrest management and treatment. NEURO # Acute encephalopathy Most likely due to hypoxic brain injury and prolonged cardiac arrest. GCS 3. Head CT 06/20: No signs of ischemic stroke, bleeding, fractures, 3 cm meningioma which is unlikely the cause of the encephalopathy. U tox was positive for benzodiazepines. Plan: ? May consider EEG in 12-24 hours ? Will possibly consider MRI in the future ? Euthermia, keep temperature at 36C CARDIO # Shock due to unknown reasons Differentials include: 1. Cardiogenic. 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 In the ED WAX PAT[employer] AS[employer]ER-D was pacing. 2. Septic. Patient has acute hypoxic respiratory failure and chest x-ray showed bilateral pneumonia. 3. Neurogenic. Unlikely, due to absence of trauma and stroke on the CT. 4. Obstructive. Patient has acute hypoxia, but CXR negative for pneumothorax, no signs of DVT, Wells score 0. Unlikely to be the cause of shock. Plan: ? NICOM to gather more hemodynamic data ? Echo ? Repeat EKG ? Will talk to the family to gather more history ? Wean off norepinephrine ? Start Levophed PULM # Acute hypoxic respiratory failure #Bilateral pneumonia #Respiratory acidosis Previous chest x-ray 06/18 showed mild CHF. Chest x-ray on 06/20 showed bilateral pneumonia. Also there are signs of possible pulmonary edema. Chest x-ray changes could also be attributed to aspiration. Ventilation settings were changed, RR was increased to 26 and then to 30. Patient is allergic to ampicillin, therefore Zosyn was not started. Plan: ? Sputum cultures pending ? Vancomycin 06/20?present ? Cefepime 06/20?present - Metronidazole 06/20-present ? Will start with empiric therapy, we will adjust according to the cultures. GI # History of GI bleed Plan: ? Protonix IV NEPHRO # AMNA #Metabolic acidosis with respiratory acidosis Most likely due to hypoxic injury in the setting of cardiac arrest and acute hypoxic respiratory failure. Plan: ? Patient has received 2 L of fluids ? Will continue to monitor CMP URO #No active problems HEME # Chronic anemia #Coagulopathy Patient has a history of chronic anemia and receiving blood transfusions. After arterial line placement, the site was oozing blood. After applying pressure for 30 minutes bleeding did not resolve. Plan: ? 1 units of FFP ? Tranexamic acid 1 g IV - DIC panel ENDO #No active problems ID #Bilateral pneumonia #Possible septic shock Plan: ? Blood cultures pending ? Urine cultures pending ? Sputum cultures pending ? Vancomycin 06/20?present ? Zosyn 06/20?present MSK #No active problems SKIN #No active problems DVT prophylaxis: none GI prophylaxis: protonix Diet: NPO Fuentes: Present Lines: peripheral, central, arterial Antibiotics: vancomycin + cefepime + metronidazole CODE STATUS: FULL CODE Reason for ICU care: shock due to unknown reasons and status post cardic arrest. Plan of care discussed with attending Dr. Larios, PGY-2 resident physician and PGY-[address] Mata. Cyndy Ramirez MD, PGY 1.
[2024-06-20 16:59] LABS: Basophils % (Auto) 0 % (0-2.5); Eosinophils % (Auto) 0 % (0-10); Hematocrit 26.6 % (36.0-46.0); Immature Granulocytes % (Auto) 2 % (0-0); Immature Granulocytes Auto 0.26 Thou/mm3 (0.00-0.00); Lymphocytes # (Auto) 0.3 Thou/mm3 (1.0-4.8); Lymphocytes % (Auto) 2 % (10-50); Mean Corpuscular HGB Conc 32.7 g/dl (31.0-37.0); Mean Corpuscular Hemoglobin 32.8 pg (25.0-35.0); Mean Corpuscular Volume 100 fL (80-100); Monocytes # (Auto) 1.1 Thou/mm3 (0.0-0.8); Monocytes % (Auto) 7 % (0-12); Neutrophils # (Auto) 15.3 Thou/mm3 (1.8-7.7); Neutrophils % (Auto) 90 % (37-80); Nucleated Red Blood Cell # 0.06 Thou/mm3 (0.00-0.00); Nucleated Red Blood Cell % 0 /100 WBC (0); Platelet Count 165 Thou/mm3 (140-440); RDW Standard Deviation 57.6 fL (36.4-46.3); Red Blood Count 2.65 Miln/mm3 (4.00-5.20); White Blood Count 17.1 Thou/mm3 (3.6-11.0)
[2024-06-20 17:06] LABS: Hemoglobin 8.7 g/dL (12.0-16.0)
[2024-06-20 17:33] LABS: Reflex Lactate? Y
--- NOTE | 2024-06-20 17:41 | XR_ITS ---
Examination: AP chest 2 views Technique: AP portable semiupright chest 2 views Exam date and time: June 20, 2024 1759 hrs. Indications: Hypoxic respiratory failure, post orogastric tube placement for central line placement Comparison: June 20, 2024 12:19 PM Findings: Orogastric tube in the stomach satisfactory position Enlarged cardiac contour again noted with prominent vascular congestion and edema and/or pneumonia diffusely in both lungs Tracheal tube tip 3.7 cm above janis Right internal jugular central line tip SVC No pneumothorax Stable position cardiac leads Prominent osteopenia Impression: Prominent heart failure, consider superimposed bilateral pneumonia Tracheal tube tip 3.7 cm above janis Right internal jugular central line tip SVC Orogastric tube in the stomach satisfactory position
[2024-06-20] MEDS: EPINEPHrine Inj 16 MG in SODIUM CHLORIDE 0.9% 250 ML 234 ML 21.432 MG IV (17:46)
[2024-06-20 18:03] LABS: Partial Thromboplastin Time 48.5 Seconds (22.0-36.0)
[2024-06-20 18:31] LABS: Base Excess -11 (-3-3); HCO3 17 mEq/L (20-26); Inspired Oxygen, FIO2 65 %; O2 Saturation 92 % (91-98); PCO2 41 mmHg (32.0-48.0); PO2 66 mmHg (83-108); pH, Arterial 7.22 (7.35-7.45)
[2024-06-20 18:32] LABS: Prothrombin Time 39.8 Seconds (9.0-12.2)
[2024-06-20 18:35] LABS: Allen Test Performed/OK; Puncture Site Left Radial
[2024-06-20] MEDS: metroNIDAZOLE/NS 500 MG IVPB 500 MG/100 ML BAG 200 MG IV (19:02)
[2024-06-20] MEDS: VANCOMYCIN/WATER 1GM IVPB 200 ML IV (19:15)
--- NOTE | 2024-06-20 19:27 | PD.INTPROC ---
Procedures Procedure Date / Time 06/20/241926 Arterial Line Indication(s): frequent arterial line sampling and shock Informed consent obtained: obtained from surrogate decision maker Time out done, and the following verified: correct patient, side and site, procedure and patient position Technique used: guide wire technique Post-Procedure: line sutured into place and dry sterile dressing placed Patient tolerated procedure: well and no complications EBL(ml): 15 Complications: excessive bleeding Site: right and femoral
[2024-06-20 19:37] LABS: Alanine Aminotransferase 213 U/L (10-49); Albumin, Serum 3.2 gm/dL (3.4-4.8); Albumin/Globulin Ratio 1.9 (1.2-2.2); Alkaline Phosphatase 245 U/L (46-116); Anion Gap 4 (7-16); Aspartate Amino Transferase 297 U/L (0-34); BUN/Creatinine Ratio 20 Ratio (12-20); Bilirubin,Total 0.5 mg/dL (0.3-1.2); Blood Urea Nitrogen 26 mg/dL (9-23); Calcium 7.5 mg/dL (8.3-10.6); Calcium (Corrected) 8.1 mg/dL (8.5-10.1); Carbon Dioxide 16.8 mMol/L (20.0-31.0); Chloride 111 mMol/L (98-107); Creatinine (Component) 1.3 mg/dL (0.6-1.3); Estimated Creatinine Clearance 36.8 mL/min (>60); Globulin 1.7 gm/dL (2.3-3.5); Glucose 340 mg/dL (74-106); Osmolality,Calculated 282 (275-295); Potassium 5.6 mMol/L (3.4-5.1); Sodium 132 mMol/L (136-145); Total Protein 4.9 gm/dL (5.7-8.2); eGFR 44 See Note
[2024-06-20 19:40] LABS: Troponin I 0.141 ng/mL (0.0-0.045)
--- NOTE | 2024-06-20 19:50 | PC.NURSE ---
at 1544 pt admit to unit to room 255
--- NOTE | 2024-06-20 19:51 | PC.NURSE ---
at [address] Larios, suction set to low intermitted suction
[2024-06-20] MEDS: TRANEXAMIC ACID 1,000 MG IVPB 1,000 MG/100 ML BAG 300 MG IV (19:55)
[2024-06-20] MEDS: PROPOFOL 1,000 MG IVPB 1,000 MG/100 ML VIAL 10.455 MG IV (20:00)
[2024-06-20] MEDS: CEFEPIME INJ 2 GM in SODIUM CHLORIDE 0.9% (P) 50 ML IV (20:28)
[2024-06-20] MEDS: PHYTONADIONE INJ 10 MG/ML AMP SC (20:38)
[2024-06-20 21:17] LABS: Basophils % (Auto) 0 % (0-2.5); Eosinophils % (Auto) 0 % (0-10); Hematocrit 25.6 % (36.0-46.0); Immature Granulocytes % (Auto) 1 % (0-0); Immature Granulocytes Auto 0.17 Thou/mm3 (0.00-0.00); Lymphocytes # (Auto) 0.3 Thou/mm3 (1.0-4.8); Lymphocytes % (Auto) 2 % (10-50); Mean Corpuscular HGB Conc 32.8 g/dl (31.0-37.0); Mean Corpuscular Hemoglobin 32.7 pg (25.0-35.0); Mean Corpuscular Volume 100 fL (80-100); Monocytes # (Auto) 1.1 Thou/mm3 (0.0-0.8); Monocytes % (Auto) 5 % (0-12); Neutrophils # (Auto) 17.7 Thou/mm3 (1.8-7.7); Neutrophils % (Auto) 92 % (37-80); Nucleated Red Blood Cell # 0.11 Thou/mm3 (0.00-0.00); Nucleated Red Blood Cell % 1 /100 WBC (0); Platelet Count 197 Thou/mm3 (140-440); Red Blood Count 2.57 Miln/mm3 (4.00-5.20); White Blood Count 19.3 Thou/mm3 (3.6-11.0)
[2024-06-20 21:24] LABS: D-Dimer > 3820 ng/mL (<600)
[2024-06-20 21:25] LABS: Hemoglobin 8.4 g/dL (12.0-16.0)
[2024-06-20] MEDS: fentaNYL CIT INJ 50 mCg/ML AMP 2ML 100 MCG IVP (21:25)
[2024-06-20 21:40] LABS: Fibrinogen 330 mg/dL (175-375); INR 4.8 (0.9-1.3); Partial Thromboplastin Time 55.1 Seconds (22.0-36.0)
[2024-06-20 21:49] LABS: Prothrombin Time 47.1 Seconds (9.0-12.2)
[2024-06-20] MEDS: SOD POLYSTYRENE SULFON SUSP 15 GM/60 ML BTL NG (22:07)
[2024-06-20 22:18] LABS: Base Excess -13 (-3-3); HCO3 15 mEq/L (20-26); Inspired Oxygen, FIO2 21 %; O2 Saturation 97 % (91-98); PCO2 45 mmHg (32.0-48.0); PO2 95 mmHg (83-108)
[2024-06-20] MEDS: LORazepam 2 MG/ML VIAL IVP (22:19)
[2024-06-20 22:29] LABS: Allen Test Not Performed; Puncture Site Arterial Line
[2024-06-20] MEDS: ALBUTEROL/IPRATROPIUM (Duoneb) RT SOL 3 ML NEBU INH (22:29)
[2024-06-20 22:30] LABS: pH, Arterial 7.14 (7.35-7.45)
[2024-06-20] MEDS: INSULIN HUM REGULAR 1 UNIT/0.01 ML (PER UNIT) 5 UNIT IV (22:41)
[2024-06-20] MEDS: DEXTROSE 50%-WATER INJ 50 ML SYRINGE IV (22:45)
[2024-06-20] MEDS: ROCURONIUM INJ 10 MG/ML VIAL 10 ML 50 MG IV (22:53)
--- NOTE | 2024-06-20 23:39 | PD.RESPROC ---
Procedures Procedure Date / Time 06/20/24 2339 Central Line Placement Right IJ: Indication(s): shock and poor, or inadequate peripheral venous access Informed consent obtained: implied Time out done, and the following verified: correct patient, side and site, procedure, patient position and implants and/or equipment Patient placed on monitor/pulse ox: Yes Hand Hygiene: alcohol-based hand rub Max Sterile Barrier Techniques used: cap, mask, sterile gown, sterile gloves and sterile full body drape Central line prep: Povidone-Iodine 1% and sterile drapes applied Ultrasound used for placement: Yes Sterile Technique if Ultrasound used, including sterile gel: yes Central line lumen inserted: triple Post procedure: sutured in place, good blood return, all ports aspirated, flushed, capped and sterile dressing applied Post procedure x-ray: tip of catheter in good position and no pneumothorax seen Patient tolerated procedure: well and no complications EBL(ml): 5 Complications: none Procedure comment: Right IJ central line was inserted by Dr. Ric Babin, PGY1
[2024-06-21] VITALS (100 sets, daily range): BP systolic 88–175; BP diastolic 41–95; PULSE 60–91; RESP 11–35; TEMP 35.7–36.2; O2SAT 92–100; BMI 28.3
[2024-06-21 00:18] LABS: Base Excess -12 (-3-3); HCO3 14 mEq/L (20-26); Inspired Oxygen, FIO2 21 %; O2 Saturation 99 % (91-98); PCO2 33 mmHg (32.0-48.0); PO2 116 mmHg (83-108); pH, Arterial 7.24 (7.35-7.45)
[2024-06-21 00:19] LABS: Allen Test Not Performed; Puncture Site Arterial Line
[2024-06-21] MEDS: PROPOFOL 1,000 MG IVPB 1,000 MG/100 ML VIAL 18.819 MG IV (01:39)
[2024-06-21] MEDS: fentaNYL 2,500 MCG/250 ML BAG 2,500 MCG/250 ML BAG 30 MCG IV (01:40)
[2024-06-21 01:59] LABS: Alanine Aminotransferase 199 U/L (10-49); Albumin, Serum 3.5 gm/dL (3.4-4.8); Albumin/Globulin Ratio 1.8 (1.2-2.2); Alkaline Phosphatase 239 U/L (46-116); Anion Gap 9 (7-16); Aspartate Amino Transferase 180 U/L (0-34); BUN/Creatinine Ratio 23 Ratio (12-20); Bilirubin,Total 0.4 mg/dL (0.3-1.2); Blood Urea Nitrogen 34 mg/dL (9-23); Calcium (Corrected) 8.4 mg/dL (8.5-10.1); Chloride 111 mMol/L (98-107); Creatinine (Component) 1.5 mg/dL (0.6-1.3); Estimated Creatinine Clearance 31.9 mL/min (>60); Globulin 1.9 gm/dL (2.3-3.5); Glucose 241 mg/dL (74-106); Osmolality,Calculated 285 (275-295); Potassium 4.7 mMol/L (3.4-5.1); Sodium 135 mMol/L (136-145); Total Protein 5.4 gm/dL (5.7-8.2); eGFR 37 See Note
[2024-06-21 02:02] LABS: Carbon Dioxide 14.6 mMol/L (20.0-31.0)
--- NOTE | 2024-06-21 02:19 | ESCONSULT_ITS ---
RE: CYNTHIA PABON : 1955 DATE OF CONSULTATION: 06/20/2024 CONSULTING PHYSICIAN: Hospitalist __ rehabilitation nurse. CHIEF COMPLAINT: [id number] cardiac arrest and successful resuscitation. HISTORY OF PRESENT ILLNESS: The patient is a 68-year-old female, very well known to me, who has longstanding history of nonischemic cardiomyopathy, chronic systolic and diastolic heart failure, ejection fraction around 40%, status post STORE GROUP MANAGER defibrillator implantation, paroxysmal atrial fibrillation, history of cholecystitis who underwent cholecystectomy in January 2024, was apparently supposed to see me in my office today, was not doing well for last 2 or 3 days and apparently collapsed in the bathroom and 911 was called. Apparently CPR was initiated, the patient had no pulse. __ROSC was achieved after 3 rounds of epinephrine and CPR was performed, but there is no evidence of any shocks delivered by defibrillator. The patient has AICD internal defibrillator. She had another episode of cardiac arrest again and pulseless rhythm, underwent CPR, another round of epinephrine was given on the way to the hospital, downtime of about 20 minutes or so, the patient came to the hospital, was given vasopressors. Initial assessment showed bilateral chest bilateral alveolar interstitial infiltrates, possibly ARDS with pulmonary edema versus pneumonia. The patient is hypotensive requiring multiple vasopressors, now shows 100% paced rhythm. Currently on multiple vasopressors including IV antibiotics. Currently on epinephrine drip as well as sedation and fentanyl. The patient is known to me, has a longstanding history of chronic systolic and diastolic heart failure, most recent ejection fraction 40- 45% and history of cholecystectomy recently. AFib, on warfarin. Generally she does fairly well, functional at home. Further history is not obtainable. The patient is now intubated on mechanical ventilation . Hypotensive requiring vasopressors. MEDICATIONS: At home, 1. She normally takes Carvedilol 12.5 twice daily. 2. Alprazolam for anxiety. 3. Entresto 24/ b.i.d. for heart failure. 4. Furosemide 20 mg daily. 5. Warfarin 5 mg daily. PAST MEDICAL HISTORY: Nonischemic cardiomyopathy, chronic atrial fibrillation, now paroxysmal atrial fibrillation, status post STORE GROUP MANAGER-D implantation, cholecystectomy recently in January 2024, requiring hospitalization and hospitalization in the past for pneumonia. SOCIAL HISTORY: The patient is with the . She does not drink alcoholic beverages. FAMILY HISTORY: Not available. REVIEW OF SYSTEMS: Cardiovascular: Did not have any chest pain prior to this event. Mostly has shortness of breath and cough. Gastrointestinal: No history of any new bleeding. Remote history of bleeding in the past with negative workup. Material Manager: Detailed history not available. PHYSICAL EXAMINATION: GENERAL: Chronically acutely ill female who is intubated, on mechanical ventilation, sedated. GCS 3, following CPR, possible hypoxic encephalopathy. The patient is intubated on mechanical ventilation. NECK: Supple. LUNGS: Decreased breath sounds. HEART: S1, S2. Regular, distant. ABDOMEN: Thin and soft. EXTREMITIES: Mild chronic edema. GENITOURINARY AND RECTAL: Not performed. NEUROLOGIC: Detailed exam not performed. 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 hypoxic encephalopathy, unresponsive. DIAGNOSTIC DATA: EKG showed 100% pacemaker rhythm. LABORATORY DATA: Showed metabolic acidosis. Hemoglobin is 8.4, baseline is around 8.7, white count is elevated at 19.3. Chemistry panel showed acidosis. Initial potassium is 5, sodium 134, CO2 of 12, creatinine 1.4, blood glucose 300. Initial troponin 0.097. BNP 550. Lactic acid was 3.7, now down to 2. Second troponin 0.141. Alkaline phosphatase went up to 45. ALT, AST also went up to 290 and 200. Chest x-ray showed evidence of bilateral alveolar interstitial infiltrates, bilateral pneumonia and combination of heart failure. Head CT is negative. ABG blood gases showed initial pH was 6.9, pCO2 of 60, pO2 of 110; now most recent pH is 7.22, pO2 of 66, pCO2 of 41. Still severe metabolic acidosis. IMPRESSION: 1. Status post [id number] cardiac arrest requiring cardiopulmonary resuscitation 20 minute downtime with 4 rounds of epinephrine. No documented arrhythmias, possible PEA arrest. 2. Hypotension secondary to combination of possible septic shock and cardiogenic shock. 3. Nonischemic cardiomyopathy, chronic systolic and diastolic heart failure, status post STORE GROUP MANAGER-D implantation. 4. Bilateral pneumonia infiltrate, possible pneumonia infection, sepsis versus heart failure. 5. History of paroxysmal atrial fibrillation, now 100% paced rhythm. 6. Diabetes mellitus. RECOMMENDATIONS: The patient should be continued on ventilatory support, vasopressors as tolerated per hypotension. The patient also appears hypoxic encephalopathy currently, but depends on downtime, may or may not recover from a neurologic point of view, we will monitor closely. The patient's prognosis is poor, condition is critical. We will get an ICD interrogation to monitor to see if there is any arrhythmias such as VT, VF during the CPR or prior to the arrival of the ambulance. The patient's condition remains critical. We would like to thank you for referring this patient for cardiovascular evaluation. We will be glad to follow the patient with you tomorrow. DT: 23:09:16 TT: 00:54:00 Ref: [id number] - TID: [id number] MTDD
--- NOTE | 2024-06-21 03:01 | EKG_ITS ---
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
[2024-06-21 03:50] LABS: Basophils % (Auto) 0 % (0-2.5); Eosinophils % (Auto) 0 % (0-10); Hematocrit 24.4 % (36.0-46.0); Immature Granulocytes % (Auto) 1 % (0-0); Immature Granulocytes Auto 0.09 Thou/mm3 (0.00-0.00); Lymphocytes # (Auto) 0.4 Thou/mm3 (1.0-4.8); Lymphocytes % (Auto) 2 % (10-50); Mean Corpuscular HGB Conc 33.2 g/dl (31.0-37.0); Mean Corpuscular Hemoglobin 32.4 pg (25.0-35.0); Mean Corpuscular Volume 98 fL (80-100); Monocytes # (Auto) 1.1 Thou/mm3 (0.0-0.8); Monocytes % (Auto) 7 % (0-12); Neutrophils # (Auto) 13.4 Thou/mm3 (1.8-7.7); Neutrophils % (Auto) 90 % (37-80); Nucleated Red Blood Cell # 0.11 Thou/mm3 (0.00-0.00); Nucleated Red Blood Cell % 1 /100 WBC (0); Platelet Count 190 Thou/mm3 (140-440); RDW Standard Deviation 55.9 fL (36.4-46.3); White Blood Count 14.9 Thou/mm3 (3.6-11.0)
[2024-06-21 03:52] LABS: Hemoglobin 8.1 g/dL (12.0-16.0)
[2024-06-21 04:14] LABS: Alanine Aminotransferase 186 U/L (10-49); Albumin, Serum 3.5 gm/dL (3.4-4.8); Albumin/Globulin Ratio 1.8 (1.2-2.2); Alkaline Phosphatase 227 U/L (46-116); Anion Gap 8 (7-16); Aspartate Amino Transferase 146 U/L (0-34); BUN/Creatinine Ratio 22 Ratio (12-20); Bilirubin,Total 0.4 mg/dL (0.3-1.2); Blood Urea Nitrogen 33 mg/dL (9-23); Calcium (Corrected) 8.4 mg/dL (8.5-10.1); Chloride 112 mMol/L (98-107); Creatinine (Component) 1.5 mg/dL (0.6-1.3); Estimated Creatinine Clearance 31.9 mL/min (>60); Glucose 186 mg/dL (74-106); Magnesium 1.9 mg/dL (1.6-2.6); Osmolality,Calculated 280 (275-295); Phosphorous 3.8 mg/dL (2.4-5.1); Potassium 4.4 mMol/L (3.4-5.1); Sodium 134 mMol/L (136-145); Thyroid Stimulating Hormone 1.77 uIU/mL (0.55-4.78); Total Protein 5.5 gm/dL (5.7-8.2); eGFR 37 See Note
[2024-06-21 04:16] LABS: Carbon Dioxide 14.4 mMol/L (20.0-31.0); Troponin I 0.102 ng/mL (0.0-0.045)
[2024-06-21 04:23] LABS: Base Excess -11 (-3-3); HCO3 14 mEq/L (20-26); Inspired Oxygen, FIO2 60 %; O2 Saturation 99 % (91-98); PCO2 30 mmHg (32.0-48.0); PO2 97 mmHg (83-108); pH, Arterial 7.29 (7.35-7.45)
[2024-06-21 04:25] LABS: Allen Test Not Performed; Puncture Site Arterial Line
[2024-06-21] MEDS: fentaNYL 2,500 MCG/250 ML BAG 2,500 MCG/250 ML BAG 15 MCG IV (04:33)
[2024-06-21] MEDS: metroNIDAZOLE/NS 500 MG IVPB 500 MG/100 ML BAG 200 MG IV ×3 (05:00→21:27)
--- NOTE | 2024-06-21 07:00 | XR_ITS ---
Examination: AP chest single view Technique : AP portable supine chest single view Exam date and time: June 21, 2024 0708 hrs. Comparison June 20, 2024 Indications: Hypoxic respiratory failure, pneumonia and heart failure on earlier chest imaging this week post intubation Findings: Moderate enlargement cardiac contour Prominent vascular congestion including central vascular engorgement Again noted diffuse edema and/or pneumonia throughout the lungs Endotracheal tube tip 3.2 cm above janis Right internal jugular central line tip right atrium Stable position cardiac leads The orogastric tube is in the stomach, the tip below the level film Prominent osteopenia No pneumothorax Impression: Again noted extensive bilateral pneumonia and pulmonary edema Tracheal tube tip 3.2 cm above janis Right internal jugular central line tip satisfactory position no pneumothorax Orogastric tube in stomach, the tip is below the level of the film
[2024-06-21] MEDS: LORazepam 2 MG/ML VIAL IVP ×2 (08:04→23:11)
[2024-06-21] MEDS: PANTOPRAZOLE INJ 40 MG VIAL IVP (09:03)
[2024-06-21] MEDS: CEFEPIME INJ 2 GM in SODIUM CHLORIDE 0.9% (P) 50 ML IV ×2 (09:03→20:02)
[2024-06-21 09:55] LABS: Base Excess, Venous -10 (-3-3); O2 Saturation, Venous 66 % (96-97); PCO2, Venous 35 mmHg (36-56); PO2, Venous 37 mmHg (15-58); pH, Venous 7.27 (7.33-7.66)
--- NOTE | 2024-06-21 10:08 | PC.SS ---
Diane Hi is a 68-year-old female admitted to ICU for Post Cardiac Arrest. SS conducted over the phone contact with the patient?s dtr Elodia Clifton [phone] (Next of Kin) to complete initial assessment and to discuss discharge planning. Elodia confirmed demographic information. She identifies herself as the pts surrogate decision maker. Eldoia reports the patient resides at home with the pts . Pt is typically able to complete all ADL?s independently, no need for any source of DME, has O2 for emergency needs. Pts PCP is Dr. Niyah Calix and her pharmacy of choice is [facility]. DC options discussed and Elodia stated they are open to either SNF or HH if recommended by PT. Pts family will provide transportation upon DC. No further intervention required at this time, social service agency director would be available to address any further concerns. DC Plan: Pending (SNF v HH) Contact: Elodia Clifton [phone] PCP: Dr. Niyah Calix
--- NOTE | 2024-06-21 11:07 | ESPR_ITS ---
Documentation for date of: 06/21/24 Subjective Subjective Interval history: Patient was seen and examined by the bedside. 06/21 Patient had central and arterial line places. After arterial line placement, she had a prolonged mild bleeding from the placement site. Pressure was applied for prolonged period of time, she received tranexamic acid 1g, FFP 1U and vitamin K. Overnight patient was breathing over the vent settings, her RR was changed to 35, propofol was increased to 25mg. Patient continuous to unresponsive, GCS 3, her pressor requirements are decreasing. EEG was ordered to assess encephalopathy. Repeat ABGs were ordered, sedation holiday was peformed today. Exam Vital Signs Temp Pulse Resp BP Pulse Ox O2 Del Method O2 Flow Rate 97.0 F 68 35 H 100/50 L 98 Mechanical Ventilation 15 06/21/24 07:00 06/21/24 11:00 06/21/24 06:26 06/21/24 11:00 06/21/24 11:00 06/21/24 06:00 06/20/24 11:41 FiO2 50 06/21/24 10:34 Narrative Exam Gen: Well-developed and well-nourished. GCS 3. HEENT: NCAT, pupils equal, constricted 1mm, minimally reactive to light, upwards gaze fixation, MMM, anicteric conjunctivae. CVS: normal S1 and S2. RRR. No M/R/G. Resp: CTA B/L. No rhonchi, rales, crackles or wheezing. Abd: soft, non-tender, non-distended. BS+ in all 4 quadrants. MSK: Good ROM in BUE & BLE. Mild ankle edema , no rash. Extremities are cold to the touch, poor capillary refill. Neuro: Alert and oriented x0. pupils equal, constricted 1mm, minimally reactive to light, upwards gaze fixation, upward gaze fixation. Bilateral facial and extremities muscles myoclonic jerks with forced eye opening. Babinski negative bilateral. Psych: impossible to assess due to condition. Objective Labs 06/21/24 03:35 06/21/24 03:35 Labs: Laboratory Results - last 24 hr 06/20/24 06/20/24 06/20/24 11:46 12:27 12:44 WBC 11.3 H D RBC 2.44 L Hgb 8.1 L Hct 27.3 L MCV 112 H MCH 33.2 MCHC 29.7 L RDW Std Deviation 54.8 H Plt Count 191 D Neut % (Auto) 65 Lymph % (Auto) 22 [place] % (Auto) 7 Eos % (Auto) 1 Baso % (Auto) 0 Neut # (Auto) 7.3 Lymph # (Auto) 2.5 [place] # (Auto) 0.8 Eos # (Auto) 0.2 Baso # (Auto) 0.1 Immature Gran # (Auto) 0.50 H Absolute Nucleated RBC 0.10 H Immature Gran % 4 H Nucleated RBC % 1 H PT INR APTT Fibrinogen D-Dimer Puncture Site Left Radial ABG pH 6.91 L* ABG pCO2 61 H ABG pO2 115 H ABG HCO3 12 L ABG O2 Saturation 96 ABG Base Excess -19 L VBG pH VBG pCO2 VBG pO2 VBG O2 Sat (Harsh) VBG Base Excess FiO2 100 Sodium 134 L Potassium 5.1 D Chloride 110 H Carbon Dioxide 12.8 L* Anion Gap 11 BUN 22 Creatinine 1.4 H Estim Creat Clear Calc 33.6 L eGFR 40 L BUN/Creatinine Ratio 16 Glucose 308 H D Calculated Osmolality 283 Lactic Acid Calcium 8.7 Corrected Calcium 8.9 Phosphorus Magnesium Total Bilirubin 0.2 L AST 36 H ALT 33 Alkaline Phosphatase 78 Troponin I 0.097 H* B-Natriuretic Peptide 553 H* Total Protein 5.8 Albumin 3.8 Globulin 2.0 L Albumin/Globulin Ratio 1.9 TSH Ur Collection Type Urine Color Urine Clarity Urine pH Ur Specific [place] Urine Protein Urine Glucose (UA) Urine Ketones Urine Blood Urine Nitrite Urine Bilirubin Urine Urobilinogen (Auto) Ur Leukocyte Esterase Urine RBC Urine WBC Ur Squamous Epith Cells Urine Bacteria Urine Opiates Screen Urine Fentanyl Screen Ur Barbiturates Screen U Amphetamin/Meth Scrn U Benzodiazepines Scrn U Cocaine Metab Screen U Marijuana (THC) Screen Ethyl Alcohol < 3.0 Blood Type A Positive Antibody Screen NEGATIVE Crossmatch See Detail Blood Bank Wristband ID Yes Blood Bank Comment FFP Ready 06/20/24 06/20/24 06/20/24 13:58 14:27 14:43 WBC RBC Hgb Hct MCV MCH MCHC RDW Std Deviation Plt Count Neut % (Auto) Lymph % (Auto) [place] % (Auto) Eos % (Auto) Baso % (Auto) Neut # (Auto) Lymph # (Auto) [place] # (Auto) Eos # (Auto) Baso # (Auto) Immature Gran # (Auto) Absolute Nucleated RBC Immature Gran % Nucleated RBC % PT INR APTT Fibrinogen D-Dimer Puncture Site Left Radial ABG pH 7.06 L* D ABG pCO2 53 H ABG pO2 159 H D ABG HCO3 15 L ABG O2 Saturation 99 H ABG Base Excess -15 L VBG pH VBG pCO2 VBG pO2 VBG O2 Sat (Harsh) VBG Base Excess FiO2 100 Sodium Potassium Chloride Carbon Dioxide Anion Gap BUN Creatinine Estim Creat Clear Calc eGFR BUN/Creatinine Ratio Glucose Calculated Osmolality Lactic Acid 3.7 H Calcium Corrected Calcium Phosphorus Magnesium Total Bilirubin AST ALT Alkaline Phosphatase Troponin I B-Natriuretic Peptide Total Protein Albumin Globulin Albumin/Globulin Ratio TSH Ur Collection Type Catheter Urine Color Yellow Urine Clarity Hazy Urine pH 6.0 Ur Specific [place] 1.014 Urine Protein 2+ A Urine Glucose (UA) 4+ A Urine Ketones Negative Urine Blood 2+ A Urine Nitrite Negative Urine Bilirubin Negative Urine Urobilinogen (Auto) Negative Ur Leukocyte Esterase Negative Urine RBC 76 H Urine WBC 24 H Ur Squamous Epith Cells 5 Urine Bacteria None Urine Opiates Screen Negative Urine Fentanyl Screen Positive A Ur Barbiturates Screen Negative U Amphetamin/Meth Scrn Negative U Benzodiazepines Scrn Positive A U Cocaine Metab Screen Negative U Marijuana (THC) Screen Negative Ethyl Alcohol Blood Type Antibody Screen Crossmatch Blood Bank Wristband ID Blood Bank Comment 06/20/24 06/20/24 06/20/24 16:46 18:12 18:24 WBC 17.1 H D RBC 2.65 L Hgb 8.7 L Hct 26.6 L MCV 100 MCH 32.8 MCHC 32.7 RDW Std Deviation 57.6 H Plt Count 165 Neut % (Auto) 90 H Lymph % (Auto) 2 L [place] % (Auto) 7 Eos % (Auto) 0 Baso % (Auto) 0 Neut # (Auto) 15.3 H Lymph # (Auto) 0.3 L [place] # (Auto) 1.1 H Eos # (Auto) 0.0 Baso # (Auto) 0.0 Immature Gran # (Auto) 0.26 H Absolute Nucleated RBC 0.06 H Immature Gran % 2 H Nucleated RBC % 0 PT 39.8 H* INR 4.0 H* APTT 48.5 H Fibrinogen D-Dimer Puncture Site Left Radial ABG pH 7.22 L D ABG pCO2 41 D ABG pO2 66 L D ABG HCO3 17 L ABG O2 Saturation 92 ABG Base Excess -11 L VBG pH VBG pCO2 VBG pO2 VBG O2 Sat (Harsh) VBG Base Excess FiO2 65 Sodium 132 L Potassium 5.6 H D Chloride 111 H Carbon Dioxide 16.8 L Anion Gap 4 L BUN 26 H Creatinine 1.3 Estim Creat Clear Calc 36.8 L eGFR 44 L BUN/Creatinine Ratio 20 Glucose 340 H Calculated Osmolality 282 Lactic Acid 2.0 Calcium 7.5 L Corrected Calcium 8.1 L Phosphorus Magnesium Total Bilirubin 0.5 AST 297 H ALT 213 H Alkaline Phosphatase 245 H D Troponin I 0.141 H* B-Natriuretic Peptide Total Protein 4.9 L Albumin 3.2 L D Globulin 1.7 L Albumin/Globulin Ratio 1.9 TSH Ur Collection Type Urine Color Urine Clarity Urine pH Ur Specific [place] Urine Protein Urine Glucose (UA) Urine Ketones Urine Blood Urine Nitrite Urine Bilirubin Urine Urobilinogen (Auto) Ur Leukocyte Esterase Urine RBC Urine WBC Ur Squamous Epith Cells Urine Bacteria Urine Opiates Screen Urine Fentanyl Screen Ur Barbiturates Screen U Amphetamin/Meth Scrn U Benzodiazepines Scrn U Cocaine Metab Screen U Marijuana (THC) Screen Ethyl Alcohol Blood Type Antibody Screen Crossmatch Blood Bank Wristband ID Blood Bank Comment 06/20/24 06/20/24 06/21/24 20:49 22:03 00:10 WBC 19.3 H RBC 2.57 L Hgb 8.4 L Hct 25.6 L MCV 100 MCH 32.7 MCHC 32.8 RDW Std Deviation 58.0 H Plt Count 197 D Neut % (Auto) 92 H Lymph % (Auto) 2 L [place] % (Auto) 5 Eos % (Auto) 0 Baso % (Auto) 0 Neut # (Auto) 17.7 H Lymph # (Auto) 0.3 L [place] # (Auto) 1.1 H Eos # (Auto) 0.0 Baso # (Auto) 0.0 Immature Gran # (Auto) 0.17 H Absolute Nucleated RBC 0.11 H Immature Gran % 1 H Nucleated RBC % 1 H PT 47.1 H* D INR 4.8 H* APTT 55.1 H Fibrinogen 330 D-Dimer > 3820 H Puncture Site Arterial Line Arterial Line ABG pH 7.14 L* 7.24 L D ABG pCO2 45 33 D ABG pO2 95 D 116 H D ABG HCO3 15 L 14 L ABG O2 Saturation 97 99 H ABG Base Excess -13 L -12 L VBG pH VBG pCO2 VBG pO2 VBG O2 Sat (Harsh) VBG Base Excess FiO2 21 21 Sodium Potassium Chloride Carbon Dioxide Anion Gap BUN Creatinine Estim Creat Clear Calc eGFR BUN/Creatinine Ratio Glucose Calculated Osmolality Lactic Acid Calcium Corrected Calcium Phosphorus Magnesium Total Bilirubin AST ALT Alkaline Phosphatase Troponin I B-Natriuretic Peptide Total Protein Albumin Globulin Albumin/Globulin Ratio TSH Ur Collection Type Urine Color Urine Clarity Urine pH Ur Specific [place] Urine Protein Urine Glucose (UA) Urine Ketones Urine Blood Urine Nitrite Urine Bilirubin Urine Urobilinogen (Auto) Ur Leukocyte Esterase Urine RBC Urine WBC Ur Squamous Epith Cells Urine Bacteria Urine Opiates Screen Urine Fentanyl Screen Ur Barbiturates Screen U Amphetamin/Meth Scrn U Benzodiazepines Scrn U Cocaine Metab Screen U Marijuana (THC) Screen Ethyl Alcohol Blood Type Antibody Screen Crossmatch Blood Bank Wristband ID Blood Bank Comment 06/21/24 06/21/24 06/21/24 00:55 03:35 04:06 WBC 14.9 H RBC 2.50 L Hgb 8.1 L Hct 24.4 L MCV 98 MCH 32.4 MCHC 33.2 RDW Std Deviation 55.9 H Plt Count 190 Neut % (Auto) 90 H Lymph % (Auto) 2 L [place] % (Auto) 7 Eos % (Auto) 0 Baso % (Auto) 0 Neut # (Auto) 13.4 H Lymph # (Auto) 0.4 L [place] # (Auto) 1.1 H Eos # (Auto) 0.0 Baso # (Auto) 0.0 Immature Gran # (Auto) 0.09 H Absolute Nucleated RBC 0.11 H Immature Gran % 1 H Nucleated RBC % 1 H PT INR APTT Fibrinogen D-Dimer Puncture Site Arterial Line ABG pH 7.29 L ABG pCO2 30 L ABG pO2 97 ABG HCO3 14 L ABG O2 Saturation 99 H ABG Base Excess -11 L VBG pH VBG pCO2 VBG pO2 VBG O2 Sat (Harsh) VBG Base Excess FiO2 60 Sodium 135 L 134 L Potassium 4.7 D 4.4 Chloride 111 H 112 H Carbon Dioxide 14.6 L* 14.4 L* Anion Gap 9 8 BUN 34 H 33 H Creatinine 1.5 H 1.5 H Estim Creat Clear Calc 31.9 L 31.9 L eGFR 37 L 37 L BUN/Creatinine Ratio 23 H 22 H Glucose 241 H D 186 H D Calculated Osmolality 285 280 Lactic Acid Calcium 8.0 L 8.0 L Corrected Calcium 8.4 L 8.4 L Phosphorus 3.8 Magnesium 1.9 Total Bilirubin 0.4 0.4 AST 180 H 146 H ALT 199 H 186 H Alkaline Phosphatase 239 H 227 H Troponin I 0.102 H* B-Natriuretic Peptide Total Protein 5.4 L 5.5 L Albumin 3.5 3.5 Globulin 1.9 L 2.0 L Albumin/Globulin Ratio 1.8 1.8 TSH 1.77 Ur Collection Type Urine Color Urine Clarity Urine pH Ur Specific [place] Urine Protein Urine Glucose (UA) Urine Ketones Urine Blood Urine Nitrite Urine Bilirubin Urine Urobilinogen (Auto) Ur Leukocyte Esterase Urine RBC Urine WBC Ur Squamous Epith Cells Urine Bacteria Urine Opiates Screen Urine Fentanyl Screen Ur Barbiturates Screen U Amphetamin/Meth Scrn U Benzodiazepines Scrn U Cocaine Metab Screen U Marijuana (THC) Screen Ethyl Alcohol Blood Type Antibody Screen Crossmatch Blood Bank Wristband ID Blood Bank Comment 06/21/24 09:48 WBC RBC Hgb Hct MCV MCH MCHC RDW Std Deviation Plt Count Neut % (Auto) Lymph % (Auto) [place] % (Auto) Eos % (Auto) Baso % (Auto) Neut # (Auto) Lymph # (Auto) [place] # (Auto) Eos # (Auto) Baso # (Auto) Immature Gran # (Auto) Absolute Nucleated RBC Immature Gran % Nucleated RBC % PT INR APTT Fibrinogen D-Dimer Puncture Site ABG pH ABG pCO2 ABG pO2 ABG HCO3 ABG O2 Saturation ABG Base Excess VBG pH 7.27 L VBG pCO2 35 L VBG pO2 37 VBG O2 Sat (Harsh) 66 L VBG Base Excess -10 L FiO2 Sodium Potassium Chloride Carbon Dioxide Anion Gap BUN Creatinine Estim Creat Clear Calc eGFR BUN/Creatinine Ratio Glucose Calculated Osmolality Lactic Acid Calcium Corrected Calcium Phosphorus Magnesium Total Bilirubin AST ALT Alkaline Phosphatase Troponin I B-Natriuretic Peptide Total Protein Albumin Globulin Albumin/Globulin Ratio TSH Ur Collection Type Urine Color Urine Clarity Urine pH Ur Specific [place] Urine Protein Urine Glucose (UA) Urine Ketones Urine Blood Urine Nitrite Urine Bilirubin Urine Urobilinogen (Auto) Ur Leukocyte Esterase Urine RBC Urine WBC Ur Squamous Epith Cells Urine Bacteria Urine Opiates Screen Urine Fentanyl Screen Ur Barbiturates Screen U Amphetamin/Meth Scrn U Benzodiazepines Scrn U Cocaine Metab Screen U Marijuana (THC) Screen Ethyl Alcohol Blood Type Antibody Screen Crossmatch Blood Bank Wristband ID Blood Bank Comment ABG Interpretation ABG results: 06/20/24 06/20/24 06/20/24 12:44 13:58 18:24 ABG pH 6.91 L* 7.06 L* D 7.22 L D ABG pCO2 61 H 53 H 41 D ABG pO2 115 H 159 H D 66 L D ABG HCO3 12 L 15 L 17 L ABG O2 Saturation 96 99 H 92 ABG Base Excess -19 L -15 L -11 L VBG pH VBG pCO2 VBG pO2 VBG Base Excess 06/20/24 06/21/24 06/21/24 22:03 00:10 04:06 ABG pH 7.14 L* 7.24 L D 7.29 L ABG pCO2 45 33 D 30 L ABG pO2 95 D 116 H D 97 ABG HCO3 15 L 14 L 14 L ABG O2 Saturation 97 99 H 99 H ABG Base Excess -13 L -12 L -11 L VBG pH VBG pCO2 VBG pO2 VBG Base Excess 06/21/24 09:48 ABG pH ABG pCO2 ABG pO2 ABG HCO3 ABG O2 Saturation ABG Base Excess VBG pH 7.27 L VBG pCO2 35 L VBG pO2 37 VBG Base Excess -10 L Quality Measures Quality Measures none Advance care planning discussed with:: other Assessment & Plan Assessment Current Active Medications: Generic Name Dose Route Start Last Admin Trade Name Freq PRN Reason Stop Dose Admin Acetaminophen 650 mg 06/20/24 15:38 Acetaminophen 325 Mg Tablet PO 07/20/24 14:18 Q4HR PRN Temp >98.6 or Pain Acetaminophen 650 mg 06/20/24 15:38 Acetaminophen Supp 650 Mg Supp TN 07/20/24 14:18 Q4HR PRN Temp >98.6 or Pain Albuterol/Ipratropium 3 ml 06/20/24 22:07 06/20/24 22:29 Albuterol/Ipratropium (Duoneb) Rt Susan 3 Ml Nebu INH 07/21/24 00:00 3 ml Q2HR PRN Administration wheezing Dextrose 50 ml 06/20/24 22:16 Dextrose 50%-Water Inj 50 Ml Syringe IV 07/20/24 22:15 Q15MIN PRN BG <50 OR BG <70 & pt unresponsive Glucagon 1 mg 06/20/24 22:16 Glucagon Inj 1 Mg Vial IM Q15MIN PRN BG <70, and no IV access Heparin Sodium (Porcine) 5,000 unit 06/20/24 21:00 06/20/24 20:36 Heparin Sod Inj 5000 Unit/Ml Vial SC 07/04/24 20:59 Not Given Q12HR NATHAN Epinephrine HCl 16 mg/ Sodium 250 mls @ 2.977 mls/hr 06/20/24 17:29 06/21/24 07:00 Chloride IV 07/20/24 17:28 0.04 mcg/kg/min .Q24H PRN 2.381 mls/hr Per Protocol Titration Protocol 0.05 MCG/KG/MIN Cefepime HCl 2 gm/ Sodium 50 mls @ 100 mls/hr 06/20/24 17:45 06/21/24 09:03 Chloride IV 06/27/24 17:44 100 mls/hr Q12HR NATHAN Administration Metronidazole 500 mg in 100 mls @ 200 mls/hr 06/20/24 17:45 06/21/24 05:00 Flagyl 500 Mg Iv IV 06/27/24 17:44 200 mls/hr Q8HR NATHAN Administration Propofol 1,000 mg in 100 mls @ 2.091 mls/hr 06/21/24 01:27 06/21/24 07:40 Diprivan Ivpb IV 07/20/24 12:42 25 mcg/kg/min .Q24H PRN 10.455 mls/hr PER PROTOCOL Titration Protocol 5 MCG/KG/MIN Fentanyl Citrate 2,500 mcg in 250 mls @ 5 mls/hr 06/21/24 01:27 06/21/24 07:40 Sublimaze Inj 2,500 Mcg/250 Ml Bag IV 06/25/24 13:12 100 mcg/hr .Q24H PRN 10 mls/hr PER PROTOCOL Titration Protocol 50 MCG/HR Vancomycin/Sodium Chloride 750 mg in 150 mls @ 120 mls/hr 06/21/24 22:00 Vancomycin/Ns 750 Mg Ivpb IV 06/28/24 21:59 QPM@2200 NATHAN Protocol Lorazepam 2 mg 06/20/24 22:04 06/20/24 22:19 Lorazepam 2 Mg/Ml Vial IVP 06/26/24 00:00 2 mg Q2HR PRN Administration AGITATION Ondansetron HCl 4 mg 06/20/24 18:19 Ondansetron Inj 2 Mg/Ml Inj 2 Ml IV 07/20/24 18:18 Q8HR PRN NAUSEA OR VOMITING Protocol Pantoprazole Sodium 40 mg 06/20/24 14:30 06/21/24 09:03 Pantoprazole Inj 40 Mg Vial IVP 07/20/24 14:29 40 mg QDAY NATHAN Administration Pharmacy Consult 1 each 06/20/24 15:45 Vancomycin Pharmacy To Dose 1 Each Each IV 07/20/24 15:44 QDAY PRN PROTOCOL Plan The patient is a 68-year-old female with a previous medical history of HFpEF EF 40-45% 01/27, nonischemic cardiomyopathy, [employer]-D placement, A-fib on warfarin (chart review), hypertension, anemia who was brought to the ED by EMS in cardiac arrest. Exact time of the cardiac arrest is unknown, most of the history was received per chart review, she was seated on the toilet and found slumped over. She arrived to the ED at 11: 41, on the way she received epinephrine 1 mg 3 times, atropine and was intubated. After 4 minutes of resuscitation measures, ROSC was obtained. Her blood pressure was low and she was started on epinephrine drip, she was also started on propofol and fentanyl for sedation. Patient was admitted to the ICU for shock and post-cardiac arrest management and treatment. NEURO # Acute encephalopathy Most likely due to hypoxic brain injury and prolonged cardiac arrest. GCS 3. Head CT 06/20: No signs of ischemic stroke, bleeding, fractures, 3 cm meningioma which is unlikely the cause of the encephalopathy. U tox was positive for benzodiazepines. Sedation was stopped for sedation holiday, neurological status remains the same. Plan: ? EEG ? Will possibly consider MRI in the future ? Euthermia, keep temperature at 36C CARDIO # Shock due to unknown reasons #Status post cardic arrest Most likely cardiogenic. NICOM monitoring did reveal that the patient is fluid responsive, SVI is normal, TPR is significantly increased with pressors possibly contributing to that. Additionally, Patient has a history of HFpEF, [employer]-D placement, nonischemic cardiomyopathy. Family reported that in previous days she was having shortness of breath and chest discomfort, which she previously had during CHF exacerbations. In the ED [employer]-D was pacing. Troponin I was elevated, but could be elevated after CPR. Differentials include: 1. Septic. Patient has acute hypoxic respiratory failure and chest x-ray showed bilateral pneumonia. TPR is high and patient is not fluid responsive. 2. Hypovolemic. Patient has no signs of active bleeding which could be the reason of her condition. She is not fluid responsive. 3. Neurogenic. Unlikely, due to absence of trauma and stroke on the CT. 4. Obstructive. Patient has acute hypoxia, but CXR negative for pneumothorax, no signs of DVT, Wells score 0. Unlikely to be the cause of shock. Plan: ? NICOM to gather more hemodynamic data ? Echo ?VBG, blood from right atrium to assess CO2 ? Wean off norepinephrine as it is possible PULM # Acute hypoxic respiratory failure #Bilateral pneumonia #Respiratory acidosis Previous chest x-ray 06/18 showed mild CHF. Chest x-ray on 06/20 showed bilateral pneumonia. Also there are signs of possible pulmonary edema. Chest x-ray changes could also be attributed to aspiration. Ventilation settings were changed, RR was increased to 26 and then to 30. Patient is allergic to ampicillin, therefore Zosyn was not started. Plan: ? Sputum cultures pending ? Vancomycin 06/20?present ? Cefepime 06/20?present - Metronidazole 06/20-present ? Will start with empiric therapy, we will adjust according to the cultures. GI # History of GI bleed Plan: ? Protonix IV NEPHRO # AMNA, improving #Metabolic acidosis with respiratory acidosis Most likely due to hypoxic injury in the setting of cardiac arrest and acute hypoxic respiratory failure. Plan: - continue fluids ? Will continue to monitor CMP URO #No active problems HEME # Chronic anemia #Coagulopathy Patient has a history of chronic anemia and receiving blood transfusions. After arterial line placement, the site was oozing blood. After applying pressure for 30 minutes bleeding did not resolve. After more time and tranexamic acid 1g, FFP transfusion it stopped. DIC panel negative Plan: - INR with PTT checks ENDO #No active problems ID #Bilateral pneumonia #Possible septic shock Plan: ? Blood cultures pending ? Urine cultures pending ? Sputum cultures pending ? Vancomycin 06/20?present ? Zosyn 06/20?present MSK #No active problems SKIN #No active problems DVT prophylaxis: none due to hypocoagulation GI prophylaxis: protonix Diet: NPO Fuentes: Present Lines: peripheral, central, arterial Antibiotics: vancomycin + cefepime + metronidazole CODE STATUS: FULL CODE Reason for ICU care: shock due to unknown reasons and status post cardic arrest. Plan of care discussed with attending Dr. Larios and PGY-[address] Mata. Cyndy Ramirez MD, PGY 1.
[2024-06-21] MEDS: PROPOFOL 1,000 MG IVPB 1,000 MG/100 ML VIAL 10.455 MG IV ×2 (11:12→23:03)
[2024-06-21 11:20] LABS: INR 4.5 (0.9-1.3)
[2024-06-21 11:32] LABS: Prothrombin Time 44.1 Seconds (9.0-12.2)
[2024-06-21 13:25] LABS: Base Excess -11 (-3-3); HCO3 15 mEq/L (20-26); Inspired Oxygen, FIO2 40 %; O2 Saturation 97 % (91-98); PCO2 36 mmHg (32.0-48.0); PO2 93 mmHg (83-108); pH, Arterial 7.23 (7.35-7.45)
[2024-06-21 13:26] LABS: Allen Test Not Performed; Puncture Site Arterial Line
--- NOTE | 2024-06-21 14:57 | PD.INTPROG ---
Documentation for date of: 06/21/24 Subjective Subjective Interval history: This is a 68yo F who was brought to the ER s/p cardiac arrest. Apparently she was in the bathroom earlier today and had a syncopal event. EMS was called and on arrival she was found to be pulseless and CPR was initiated. ROSC was achieved after 3 rounds of epi. During transit pulse was lost once more and CPR resumed. Pt was undergoing CPR on arrival to the ER. ROSC was achieved after arrival and pt felt to have had a total downtime of ~20min. Pts initial rhythm is unknown. In the ER labs were obtained after ROSC as well as CXR. CXR shows diffuse fluffy infiltrates and labs are significant for severe acidosis. Rectal exam done in the ER showed a pos hemoccult. pt seen in ER room 2. Per family pt has has SOB for the last 2 days. She visited her PCP and had labs and a CXR done. Has had changes to her cardiac regimen over the last 2 months. This AM very SOB, went to the bathroom and called out for help then collapsed. 06/21-overnight has had a decrease in her vasopressor requirements. Did have occasional episodes with desatting on the vent. ABGs were followed and I was called overnight on several occasions for additional ventilator management. She continues to have ongoing myoclonic jerks. She has had an adequate urinary output. She remains afebrile Critical Care Note Critical care time (min.): 55 Exam Vital Signs Temp Pulse Resp BP Pulse Ox O2 Del Method O2 Flow Rate 97.0 F 85 35 H 130/56 L 93 L Mechanical Ventilation 15 06/21/24 12:01 06/21/24 14:31 06/21/24 06:26 06/21/24 14:31 06/21/24 14:31 06/21/24 06:00 06/20/24 11:41 FiO2 30 06/21/24 14:21 Narrative Exam General-intubated, sedated, obese, myoclonic jerks noted HEENT-normocephalic, atraumatic, sclera anicteric, pupils are small and sluggish, ET tube in place, dried blood present in the oral cavity, a avulsed tooth found, OG tube in place Chest-diminished breath sounds occasional crackles at posterior base, heart rate regular and rhythmic, no bruits murmurs auscultated at time of exam, prolonged expiratory phase when breathing causing increased peak inspiratory pressures and some vent synchrony Abdomen-obese, firm, no apparent grimacing on palpation, bowel sounds present, no palpable organomegaly Extremities-no edema, pulses palpable, no clubbing or mottling, no withdrawal to noxious stimuli Vent Changed from AC/VC to PRVC Drips Fentanyl propofol epinephrine Physical Exam Completion Physical Exam Complete?: Yes 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 06/21/24 03:35 06/21/24 03:35 Labs: Laboratory Results - last 24 hr 06/20/24 06/20/24 06/20/24 12:27 14:43 16:46 WBC 17.1 H D RBC 2.65 L Hgb 8.7 L Hct 26.6 L MCV 100 MCH 32.8 MCHC 32.7 RDW Std Deviation 57.6 H Plt Count 165 Neut % (Auto) 90 H Lymph % (Auto) 2 L [place] % (Auto) 7 Eos % (Auto) 0 Baso % (Auto) 0 Neut # (Auto) 15.3 H Lymph # (Auto) 0.3 L [place] # (Auto) 1.1 H Eos # (Auto) 0.0 Baso # (Auto) 0.0 Immature Gran # (Auto) 0.26 H Absolute Nucleated RBC 0.06 H Immature Gran % 2 H Nucleated RBC % 0 PT 39.8 H* INR 4.0 H* APTT 48.5 H Fibrinogen D-Dimer Puncture Site ABG pH ABG pCO2 ABG pO2 ABG HCO3 ABG O2 Saturation ABG Base Excess VBG pH VBG pCO2 VBG pO2 VBG O2 Sat (Harsh) VBG Base Excess FiO2 Sodium Potassium Chloride Carbon Dioxide Anion Gap BUN Creatinine Estim Creat Clear Calc eGFR BUN/Creatinine Ratio Glucose Calculated Osmolality Lactic Acid Calcium Corrected Calcium Phosphorus Magnesium Total Bilirubin AST ALT Alkaline Phosphatase Troponin I Total Protein Albumin Globulin Albumin/Globulin Ratio TSH Ur Collection Type Catheter Urine Color Yellow Urine Clarity Hazy Urine pH 6.0 Ur Specific [place] 1.014 Urine Protein 2+ A Urine Glucose (UA) 4+ A Urine Ketones Negative Urine Blood 2+ A Urine Nitrite Negative Urine Bilirubin Negative Urine Urobilinogen (Auto) Negative Ur Leukocyte Esterase Negative Urine RBC 76 H Urine WBC 24 H Ur Squamous Epith Cells 5 Urine Bacteria None Urine Opiates Screen Negative Urine Fentanyl Screen Positive A Ur Barbiturates Screen Negative U Amphetamin/Meth Scrn Negative U Benzodiazepines Scrn Positive A U Cocaine Metab Screen Negative U Marijuana (THC) Screen Negative Blood Type A Positive Antibody Screen NEGATIVE Crossmatch See Detail Blood Bank Wristband ID Yes Blood Bank Comment FFP Ready 06/20/24 06/20/24 06/20/24 18:12 18:24 20:49 WBC 19.3 H RBC 2.57 L Hgb 8.4 L Hct 25.6 L MCV 100 MCH 32.7 MCHC 32.8 RDW Std Deviation 58.0 H Plt Count 197 D Neut % (Auto) 92 H Lymph % (Auto) 2 L [place] % (Auto) 5 Eos % (Auto) 0 Baso % (Auto) 0 Neut # (Auto) 17.7 H Lymph # (Auto) 0.3 L [place] # (Auto) 1.1 H Eos # (Auto) 0.0 Baso # (Auto) 0.0 Immature Gran # (Auto) 0.17 H Absolute Nucleated RBC 0.11 H Immature Gran % 1 H Nucleated RBC % 1 H PT 47.1 H* D INR 4.8 H* APTT 55.1 H Fibrinogen 330 D-Dimer > 3820 H Puncture Site Left Radial ABG pH 7.22 L D ABG pCO2 41 D ABG pO2 66 L D ABG HCO3 17 L ABG O2 Saturation 92 ABG Base Excess -11 L VBG pH VBG pCO2 VBG pO2 VBG O2 Sat (Harsh) VBG Base Excess FiO2 65 Sodium 132 L Potassium 5.6 H D Chloride 111 H Carbon Dioxide 16.8 L Anion Gap 4 L BUN 26 H Creatinine 1.3 Estim Creat Clear Calc 36.8 L eGFR 44 L BUN/Creatinine Ratio 20 Glucose 340 H Calculated Osmolality 282 Lactic Acid 2.0 Calcium 7.5 L Corrected Calcium 8.1 L Phosphorus Magnesium Total Bilirubin 0.5 AST 297 H ALT 213 H Alkaline Phosphatase 245 H D Troponin I 0.141 H* Total Protein 4.9 L Albumin 3.2 L D Globulin 1.7 L Albumin/Globulin Ratio 1.9 TSH Ur Collection Type Urine Color Urine Clarity Urine pH Ur Specific [place] Urine Protein Urine Glucose (UA) Urine Ketones Urine Blood Urine Nitrite Urine Bilirubin Urine Urobilinogen (Auto) Ur Leukocyte Esterase Urine RBC Urine WBC Ur Squamous Epith Cells Urine Bacteria Urine Opiates Screen Urine Fentanyl Screen Ur Barbiturates Screen U Amphetamin/Meth Scrn U Benzodiazepines Scrn U Cocaine Metab Screen U Marijuana (THC) Screen Blood Type Antibody Screen Crossmatch Blood Bank [facility] ID Blood Bank Comment 06/20/24 06/21/24 06/21/24 22:03 00:10 00:55 WBC RBC Hgb Hct MCV MCH MCHC RDW Std Deviation Plt Count Neut % (Auto) Lymph % (Auto) [place] % (Auto) Eos % (Auto) Baso % (Auto) Neut # (Auto) Lymph # (Auto) [place] # (Auto) Eos # (Auto) Baso # (Auto) Immature Gran # (Auto) Absolute Nucleated RBC Immature Gran % Nucleated RBC % PT INR APTT Fibrinogen D-Dimer Puncture Site Arterial Line Arterial Line ABG pH 7.14 L* 7.24 L D ABG pCO2 45 33 D ABG pO2 95 D 116 H D ABG HCO3 15 L 14 L ABG O2 Saturation 97 99 H ABG Base Excess -13 L -12 L VBG pH VBG pCO2 VBG pO2 VBG O2 Sat (Harsh) VBG Base Excess FiO2 21 21 Sodium 135 L Potassium 4.7 D Chloride 111 H Carbon Dioxide 14.6 L* Anion Gap 9 BUN 34 H Creatinine 1.5 H Estim Creat Clear Calc 31.9 L eGFR 37 L BUN/Creatinine Ratio 23 H Glucose 241 H D Calculated Osmolality 285 Lactic Acid Calcium 8.0 L Corrected Calcium 8.4 L Phosphorus Magnesium Total Bilirubin 0.4 AST 180 H ALT 199 H Alkaline Phosphatase 239 H Troponin I Total Protein 5.4 L Albumin 3.5 Globulin 1.9 L Albumin/Globulin Ratio 1.8 TSH Ur Collection Type Urine Color Urine Clarity Urine pH Ur Specific [place] Urine Protein Urine Glucose (UA) Urine Ketones Urine Blood Urine Nitrite Urine Bilirubin Urine Urobilinogen (Auto) Ur Leukocyte Esterase Urine RBC Urine WBC Ur Squamous Epith Cells Urine Bacteria Urine Opiates Screen Urine Fentanyl Screen Ur Barbiturates Screen U Amphetamin/Meth Scrn U Benzodiazepines Scrn U Cocaine Metab Screen U Marijuana (THC) Screen Blood Type Antibody Screen Crossmatch Blood Bank [facility] ID Blood Bank Comment 06/21/24 06/21/24 06/21/24 03:35 04:06 09:48 WBC 14.9 H RBC 2.50 L Hgb 8.1 L Hct 24.4 L MCV 98 MCH 32.4 MCHC 33.2 RDW Std Deviation 55.9 H Plt Count 190 Neut % (Auto) 90 H Lymph % (Auto) 2 L [place] % (Auto) 7 Eos % (Auto) 0 Baso % (Auto) 0 Neut # (Auto) 13.4 H Lymph # (Auto) 0.4 L [place] # (Auto) 1.1 H Eos # (Auto) 0.0 Baso # (Auto) 0.0 Immature Gran # (Auto) 0.09 H Absolute Nucleated RBC 0.11 H Immature Gran % 1 H Nucleated RBC % 1 H PT INR APTT Fibrinogen D-Dimer Puncture Site Arterial Line ABG pH 7.29 L ABG pCO2 30 L ABG pO2 97 ABG HCO3 14 L ABG O2 Saturation 99 H ABG Base Excess -11 L VBG pH 7.27 L VBG pCO2 35 L VBG pO2 37 VBG O2 Sat (Harsh) 66 L VBG Base Excess -10 L FiO2 60 Sodium 134 L Potassium 4.4 Chloride 112 H Carbon Dioxide 14.4 L* Anion Gap 8 BUN 33 H Creatinine 1.5 H Estim Creat Clear Calc 31.9 L eGFR 37 L BUN/Creatinine Ratio 22 H Glucose 186 H D Calculated Osmolality 280 Lactic Acid Calcium 8.0 L Corrected Calcium 8.4 L Phosphorus 3.8 Magnesium 1.9 Total Bilirubin 0.4 AST 146 H ALT 186 H Alkaline Phosphatase 227 H Troponin I 0.102 H* Total Protein 5.5 L Albumin 3.5 Globulin 2.0 L Albumin/Globulin Ratio 1.8 TSH 1.77 Ur Collection Type Urine Color Urine Clarity Urine pH Ur Specific [place] Urine Protein Urine Glucose (UA) Urine Ketones Urine Blood Urine Nitrite Urine Bilirubin Urine Urobilinogen (Auto) Ur Leukocyte Esterase Urine RBC Urine WBC Ur Squamous Epith Cells Urine Bacteria Urine Opiates Screen Urine Fentanyl Screen Ur Barbiturates Screen U Amphetamin/Meth Scrn U Benzodiazepines Scrn U Cocaine Metab Screen U Marijuana (THC) Screen Blood Type Antibody Screen Crossmatch Blood Bank Wristband ID Blood Bank Comment 06/21/24 06/21/24 10:46 13:15 WBC RBC Hgb Hct MCV MCH MCHC RDW Std Deviation Plt Count Neut % (Auto) Lymph % (Auto) [place] % (Auto) Eos % (Auto) Baso % (Auto) Neut # (Auto) Lymph # (Auto) [place] # (Auto) Eos # (Auto) Baso # (Auto) Immature Gran # (Auto) Absolute Nucleated RBC Immature Gran % Nucleated RBC % PT 44.1 H* D INR 4.5 H* APTT Fibrinogen D-Dimer Puncture Site Arterial Line ABG pH 7.23 L ABG pCO2 36 ABG pO2 93 ABG HCO3 15 L ABG O2 Saturation 97 ABG Base Excess -11 L VBG pH VBG pCO2 VBG pO2 VBG O2 Sat (Harsh) VBG Base Excess FiO2 40 Sodium Potassium Chloride Carbon Dioxide Anion Gap BUN Creatinine Estim Creat Clear Calc eGFR BUN/Creatinine Ratio Glucose Calculated Osmolality Lactic Acid Calcium Corrected Calcium Phosphorus Magnesium Total Bilirubin AST ALT Alkaline Phosphatase Troponin I Total Protein Albumin Globulin Albumin/Globulin Ratio TSH Ur Collection Type Urine Color Urine Clarity Urine pH Ur Specific [place] Urine Protein Urine Glucose (UA) Urine Ketones Urine Blood Urine Nitrite Urine Bilirubin Urine Urobilinogen (Auto) Ur Leukocyte Esterase Urine RBC Urine WBC Ur Squamous Epith Cells Urine Bacteria Urine Opiates Screen Urine Fentanyl Screen Ur Barbiturates Screen U Amphetamin/Meth Scrn U Benzodiazepines Scrn U Cocaine Metab Screen U Marijuana (THC) Screen Blood Type Antibody Screen Crossmatch Blood Bank Wristband ID Blood Bank Comment Assessment & Plan Additional Assessment Additional Assessment: In brief this is a 68yo F 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 -Head CT negative for any acute changes -EEG ordered today -Will allow 72 hours for further prognostication CV s/p cardiac arrest- will place pt on TTM with goal 36c, avoid hyperthermia shock- in a post arrest setting of unclear etiology. -Hemodynamics on [facility] noted -Bedside echo performed with parasternal long, short, subcostal and apical 4 views obtained which suggests some LVH, no significant pericardial effusion noted, adequate LV contractility, no significant dilation of the RV noted, without any significant IVC variability -Significant decrease in epi requirements -Troponinemia in the setting of acute kidney injury, likely related to demand ischemia and trending down, minimally elevated HFrEF- s/p ICD, BNP noted to be elevated, will diures when able, device will be interrogated Pulmonary HTN- noted on prior echo Resp Acute Resp failure- s/p intubation and on MV, CXR noted with fluffy infiltrates, ABG noted with resp acidosis and vent changes made. will repeat ABG to further eval. vent bundle Aspiration- likely occurred during down time, on abx for further coverage Pulmonary edema- will start diuresis when able Respiratory acidosis- Ve increased on vent and will recheck ABG Renal AMNA- likely due to hypotension, marsh in place, monitor UOP -Creatinine up to 1.5 today however continues with good urinary output HypoNa- mild, monitor Hyperchloremic metabolic acidosis-avoid NS, compensating with ventilator GI Transaminitis- fu on repeat CMP in AM -Likely due to ischemic insult GI proph- PPI ? GIB- reported as hemoccult pos with black stools therefore started on PPI, will recheck h/h Endo DM- SSI Heme Leukocytosis- likely reactive in nature -Trending down today Anemia- near baseline, will fu with repeat h/h as there was suspicion for GIB in the ER -H&H remained stable Coagulopathy-patient received FFP yesterday along with TXA -INR remains elevated at 4.5 today therefore will transfuse an additional unit of FFP -Also received vitamin K yesterday -Has been on Coumadin at home DVT proph- SCD for now ID on abx case d/w ICU team Discussed with family labs, imaging, records reviewed ~55ccmin required for eval, exam, review, intervention, discussion and formulation of POC for this critically ill pt with acute resp failure and shock at high risk for further and ongoing decompensation. Provider Notation Provider Notation: Although this document has been carefully reviewed, there may still be some phonetic and other typographical errors. These errors are purely grammatical due to imperfections in the software program and should not be construed in any way to compromise the substance of the patient's medical care during this visit. Thank you for the opportunity and privilege in assisting you with this patient's care and management.
--- NOTE | 2024-06-21 15:34 | PD.RESPRO ---
Documentation for date of: 06/21/24 Subjective Subjective Interval history: The patient is a 68-year-old female, very well known to me, who has longstanding history of nonischemic cardiomyopathy, chronic systolic and diastolic heart failure, ejection fraction around 40%, status post COLLAR TRIMMER defibrillator implantation, paroxysmal atrial fibrillation, history of cholecystitis who underwent cholecystectomy in January 2024, was apparently supposed to see me in my office today, was not doing well for last 2 or 3 days and apparently collapsed in the bathroom and 911 was called. Apparently CPR was initiated, the patient had no pulse. ROSC was achieved after 3 rounds of epinephrine and CPR was performed, but there is no evidence of any shocks delivered by defibrillator. The patient has AICD internal defibrillator. She had another episode of cardiac arrest again and pulseless rhythm, underwent CPR, another round of epinephrine was given on the way to the hospital, downtime of about 20 minutes or so, the patient came to the hospital, was given vasopressors. Initial assessment showed bilateral chest bilateral alveolar interstitial infiltrates, possibly ARDS with pulmonary edema versus pneumonia. The patient is hypotensive requiring multiple vasopressors, now shows 100% paced rhythm. Currently on multiple vasopressors including IV antibiotics. 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 Patient is also having history of A-fib on warfarin.Initial labs showed metabolic acidosis, hemoglobin 8.4, white count 19.3. Chemistry panel showed metabolic acidosis. Initial potassium was 5, sodium 134, CO2 12, creatinine 1.4, blood glucose 300. Initial troponin I was 0.097. BNP 550. Lactic acidosis down trended to 2. Elevated liver enzymes. Chest x-ray showed extensive bilateral alveolar interstitial infiltrates, bilateral pneumonia and heart failure. Head CT was negative. ABGs showed pH 6.9, pCO2 60, pO2 110. Patient is admitted in ICU postcardiac arrest and CPR for further management. 06/21/2024: Patient was seen and examined in the ICU. Patient continues to remain intubated and ventilated. Patient is currently requiring low-dose of epinephrine and sedated with propofol and fentanyl. Eyes are in upward gaze. Morning labs revealed improvement in white count, stable hemoglobin at 8.1. Coagulopathy with elevated INR 4.5. Elevated D-dimers more than 3820. ABGs revealed pH 7.23, pCO2 36, pO2 93 and bicarb 15. VBG showed pH 7.27, pCO2 35. FiO2 40%. Chemistry panel showed metabolic acidosis with bicarb 14.4, BUN 33 creatinine 1.5. Blood glucose 186. Elevated liver enzymes. Troponin I 0.102. Morning chest x-ray showed worsening bilateral pneumonia and pulmonary edema. VBG in the morning showed increased oxygen extraction. ICU team plan to do EEG to evaluate neurological functions. Patient most likely had hypoxic brain injury due to downtime more than 20 minutes therefore prognosis remains poor. Will follow-up on ICD interrogation to monitor any heart arrhythmias such as VT, V-fib during CPR or prior to arrival to hospital. Recommended to continue intubation and current ventilation settings. Follow-up on EEG and echocardiogram. Continue IV vasopressors and antibiotic therapy to treat shock. Continue Holding home medications including carvedilol, Entresto, Lasix and warfarin. Cardiology will follow the case closely. Exam Vital Signs Temp Pulse Resp BP Pulse Ox O2 Del Method O2 Flow Rate 97.0 F 85 35 H 130/56 L 93 L Mechanical Ventilation 15 06/21/24 12:01 06/21/24 14:31 06/21/24 06:26 06/21/24 14:31 06/21/24 14:31 06/21/24 06:00 06/20/24 11:41 FiO2 30 06/21/24 14:21 Narrative Exam Gen: Patient is currently intubated and sedated. HEENT: NCAT, pupils equal, constricted 1mm, minimally reactive to light, upwards gaze fixation, MMM, anicteric conjunctivae. Right IJV. CVS: Regular rate and regular rhythm 100% paced. S1 and S2. RRR. No M/R/G. Resp: CTA B/L. No rhonchi, rales, crackles or wheezing. Abd: soft, non-tender, non-distended. BS+ in all 4 quadrants. MSK: Good ROM in BUE & BLE. Mild ankle edema , no rash. Extremities are cold to the touch, poor capillary refill. Arterial line placed. Neuro: Alert and oriented x0. pupils equal, constricted 1mm, minimally reactive to light, upwards gaze fixation, upward gaze fixation. Bilateral facial and extremities muscles myoclonic jerks with forced eye opening. Babinski negative bilateral. Psych: Unable to assess due to intubation and sedation Objective Labs 06/21/24 03:35 06/21/24 03:35 Labs: Laboratory Results - last 24 hr 06/20/24 06/20/24 06/20/24 12:27 16:46 18:12 WBC 17.1 H D RBC 2.65 L Hgb 8.7 L Hct 26.6 L MCV 100 MCH 32.8 MCHC 32.7 RDW Std Deviation 57.6 H Plt Count 165 Neut % (Auto) 90 H Lymph % (Auto) 2 L [place] % (Auto) 7 Eos % (Auto) 0 Baso % (Auto) 0 Neut # (Auto) 15.3 H Lymph # (Auto) 0.3 L [place] # (Auto) 1.1 H Eos # (Auto) 0.0 Baso # (Auto) 0.0 Immature Gran # (Auto) 0.26 H Absolute Nucleated RBC 0.06 H Immature Gran % 2 H Nucleated RBC % 0 PT 39.8 H* INR 4.0 H* APTT 48.5 H Fibrinogen D-Dimer Puncture Site ABG pH ABG pCO2 ABG pO2 ABG HCO3 ABG O2 Saturation ABG Base Excess VBG pH VBG pCO2 VBG pO2 VBG O2 Sat (Harsh) VBG Base Excess FiO2 Sodium 132 L Potassium 5.6 H D Chloride 111 H Carbon Dioxide 16.8 L Anion Gap 4 L BUN 26 H Creatinine 1.3 Estim Creat Clear Calc 36.8 L eGFR 44 L BUN/Creatinine Ratio 20 Glucose 340 H Calculated Osmolality 282 Lactic Acid 2.0 Calcium 7.5 L Corrected Calcium 8.1 L Phosphorus Magnesium Total Bilirubin 0.5 AST 297 H ALT 213 H Alkaline Phosphatase 245 H D Troponin I 0.141 H* Total Protein 4.9 L Albumin 3.2 L D Globulin 1.7 L Albumin/Globulin Ratio 1.9 TSH Blood Type A Positive Antibody Screen NEGATIVE Crossmatch See Detail Blood Bank Wristband ID Yes Blood Bank Comment FFP Ready 06/20/24 06/20/24 06/20/24 18:24 20:49 22:03 WBC 19.3 H RBC 2.57 L Hgb 8.4 L Hct 25.6 L MCV 100 MCH 32.7 MCHC 32.8 RDW Std Deviation 58.0 H Plt Count 197 D Neut % (Auto) 92 H Lymph % (Auto) 2 L [place] % (Auto) 5 Eos % (Auto) 0 Baso % (Auto) 0 Neut # (Auto) 17.7 H Lymph # (Auto) 0.3 L [place] # (Auto) 1.1 H Eos # (Auto) 0.0 Baso # (Auto) 0.0 Immature Gran # (Auto) 0.17 H Absolute Nucleated RBC 0.11 H Immature Gran % 1 H Nucleated RBC % 1 H PT 47.1 H* D INR 4.8 H* APTT 55.1 H Fibrinogen 330 D-Dimer > 3820 H Puncture Site Left Radial Arterial Line ABG pH 7.22 L D 7.14 L* ABG pCO2 41 D 45 ABG pO2 66 L D 95 D ABG HCO3 17 L 15 L ABG O2 Saturation 92 97 ABG Base Excess -11 L -13 L VBG pH VBG pCO2 VBG pO2 VBG O2 Sat (Harsh) VBG Base Excess FiO2 65 21 Sodium Potassium Chloride Carbon Dioxide Anion Gap BUN Creatinine Estim Creat Clear Calc eGFR BUN/Creatinine Ratio Glucose Calculated Osmolality Lactic Acid Calcium Corrected Calcium Phosphorus Magnesium Total Bilirubin AST ALT Alkaline Phosphatase Troponin I Total Protein Albumin Globulin Albumin/Globulin Ratio TSH Blood Type Antibody Screen Crossmatch Blood Bank Wristband ID Blood Bank Comment 06/21/24 06/21/24 06/21/24 00:10 00:55 03:35 WBC 14.9 H RBC 2.50 L Hgb 8.1 L Hct 24.4 L MCV 98 MCH 32.4 MCHC 33.2 RDW Std Deviation 55.9 H Plt Count 190 Neut % (Auto) 90 H Lymph % (Auto) 2 L [place] % (Auto) 7 Eos % (Auto) 0 Baso % (Auto) 0 Neut # (Auto) 13.4 H Lymph # (Auto) 0.4 L [place] # (Auto) 1.1 H Eos # (Auto) 0.0 Baso # (Auto) 0.0 Immature Gran # (Auto) 0.09 H Absolute Nucleated RBC 0.11 H Immature Gran % 1 H Nucleated RBC % 1 H PT INR APTT Fibrinogen D-Dimer Puncture Site Arterial Line ABG pH 7.24 L D ABG pCO2 33 D ABG pO2 116 H D ABG HCO3 14 L ABG O2 Saturation 99 H ABG Base Excess -12 L VBG pH VBG pCO2 VBG pO2 VBG O2 Sat (Harsh) VBG Base Excess FiO2 21 Sodium 135 L 134 L Potassium 4.7 D 4.4 Chloride 111 H 112 H Carbon Dioxide 14.6 L* 14.4 L* Anion Gap 9 8 BUN 34 H 33 H Creatinine 1.5 H 1.5 H Estim Creat Clear Calc 31.9 L 31.9 L eGFR 37 L 37 L BUN/Creatinine Ratio 23 H 22 H Glucose 241 H D 186 H D Calculated Osmolality 285 280 Lactic Acid Calcium 8.0 L 8.0 L Corrected Calcium 8.4 L 8.4 L Phosphorus 3.8 Magnesium 1.9 Total Bilirubin 0.4 0.4 AST 180 H 146 H ALT 199 H 186 H Alkaline Phosphatase 239 H 227 H Troponin I 0.102 H* Total Protein 5.4 L 5.5 L Albumin 3.5 3.5 Globulin 1.9 L 2.0 L Albumin/Globulin Ratio 1.8 1.8 TSH 1.77 Blood Type Antibody Screen Crossmatch Blood Bank Wristband ID Blood Bank Comment 06/21/24 06/21/24 06/21/24 04:06 09:48 10:46 WBC RBC Hgb Hct MCV MCH MCHC RDW Std Deviation Plt Count Neut % (Auto) Lymph % (Auto) [place] % (Auto) Eos % (Auto) Baso % (Auto) Neut # (Auto) Lymph # (Auto) [place] # (Auto) Eos # (Auto) Baso # (Auto) Immature Gran # (Auto) Absolute Nucleated RBC Immature Gran % Nucleated RBC % PT 44.1 H* D INR 4.5 H* APTT Fibrinogen D-Dimer Puncture Site Arterial Line ABG pH 7.29 L ABG pCO2 30 L ABG pO2 97 ABG HCO3 14 L ABG O2 Saturation 99 H ABG Base Excess -11 L VBG pH 7.27 L VBG pCO2 35 L VBG pO2 37 VBG O2 Sat (Harsh) 66 L VBG Base Excess -10 L FiO2 60 Sodium Potassium Chloride Carbon Dioxide Anion Gap BUN Creatinine Estim Creat Clear Calc eGFR BUN/Creatinine Ratio Glucose Calculated Osmolality Lactic Acid Calcium Corrected Calcium Phosphorus Magnesium Total Bilirubin AST ALT Alkaline Phosphatase Troponin I Total Protein Albumin Globulin Albumin/Globulin Ratio TSH Blood Type Antibody Screen Crossmatch Blood Bank Wristband ID Blood Bank Comment 06/21/24 13:15 WBC RBC Hgb Hct MCV MCH MCHC RDW Std Deviation Plt Count Neut % (Auto) Lymph % (Auto) [place] % (Auto) Eos % (Auto) Baso % (Auto) Neut # (Auto) Lymph # (Auto) [place] # (Auto) Eos # (Auto) Baso # (Auto) Immature Gran # (Auto) Absolute Nucleated RBC Immature Gran % Nucleated RBC % PT INR APTT Fibrinogen D-Dimer Puncture Site Arterial Line ABG pH 7.23 L ABG pCO2 36 ABG pO2 93 ABG HCO3 15 L ABG O2 Saturation 97 ABG Base Excess -11 L VBG pH VBG pCO2 VBG pO2 VBG O2 Sat (Harsh) VBG Base Excess FiO2 40 Sodium Potassium Chloride Carbon Dioxide Anion Gap BUN Creatinine Estim Creat Clear Calc eGFR BUN/Creatinine Ratio Glucose Calculated Osmolality Lactic Acid Calcium Corrected Calcium Phosphorus Magnesium Total Bilirubin AST ALT Alkaline Phosphatase Troponin I Total Protein Albumin Globulin Albumin/Globulin Ratio TSH Blood Type Antibody Screen Crossmatch Blood Bank Wristband ID Blood Bank Comment ABG Interpretation ABG results: 06/20/24 06/20/24 06/20/24 12:44 13:58 18:24 ABG pH 6.91 L* 7.06 L* D 7.22 L D ABG pCO2 61 H 53 H 41 D ABG pO2 115 H 159 H D 66 L D ABG HCO3 12 L 15 L 17 L ABG O2 Saturation 96 99 H 92 ABG Base Excess -19 L -15 L -11 L VBG pH VBG pCO2 VBG pO2 VBG Base Excess 06/20/24 06/21/24 06/21/24 22:03 00:10 04:06 ABG pH 7.14 L* 7.24 L D 7.29 L ABG pCO2 45 33 D 30 L ABG pO2 95 D 116 H D 97 ABG HCO3 15 L 14 L 14 L ABG O2 Saturation 97 99 H 99 H ABG Base Excess -13 L -12 L -11 L VBG pH VBG pCO2 VBG pO2 VBG Base Excess 06/21/24 06/21/24 09:48 13:15 ABG pH 7.23 L ABG pCO2 36 ABG pO2 93 ABG HCO3 15 L ABG O2 Saturation 97 ABG Base Excess -11 L VBG pH 7.27 L VBG pCO2 35 L VBG pO2 37 VBG Base Excess -10 L Quality Measures Quality Measures VTE prophylaxis (on hold ) Advance care planning discussed with:: other Assessment & Plan Assessment Current Active Medications: Generic Name Dose Route Start Last Admin Trade Name Freq PRN Reason Stop Dose Admin Acetaminophen 650 mg 06/20/24 15:38 Acetaminophen 325 Mg Tablet PO 07/20/24 14:18 Q4HR PRN Temp >98.6 or Pain Acetaminophen 650 mg 06/20/24 15:38 Acetaminophen Supp 650 Mg Supp [place] 07/20/24 14:18 Q4HR PRN Temp >98.6 or Pain Albuterol/Ipratropium 3 ml 06/20/24 22:07 06/20/24 22:29 Albuterol/Ipratropium (Duoneb) Rt Susan 3 Ml Nebu INH 07/21/24 00:00 3 ml Q2HR PRN Administration wheezing Dextrose 50 ml 06/20/24 22:16 Dextrose 50%-Water Inj 50 Ml Syringe IV 07/20/24 22:15 Q15MIN PRN BG <50 OR BG <70 & pt unresponsive Glucagon 1 mg 06/20/24 22:16 Glucagon Inj 1 Mg Vial IM Q15MIN PRN BG <70, and no IV access Heparin Sodium (Porcine) 5,000 unit 06/20/24 21:00 06/20/24 20:36 Heparin Sod Inj 5000 Unit/Ml Vial SC 07/04/24 20:59 Not Given Q12HR NATHAN Epinephrine HCl 16 mg/ Sodium 250 mls @ 2.977 mls/hr 06/20/24 17:29 06/21/24 07:00 Chloride IV 07/20/24 17:28 0.04 mcg/kg/min .Q24H PRN 2.381 mls/hr Per Protocol Titration Protocol 0.05 MCG/KG/MIN Cefepime HCl 2 gm/ Sodium 50 mls @ 100 mls/hr 06/20/24 17:45 06/21/24 09:03 Chloride IV 06/27/24 17:44 100 mls/hr Q12HR NATHAN Administration Metronidazole 500 mg in 100 mls @ 200 mls/hr 06/20/24 17:45 06/21/24 14:21 Flagyl 500 Mg Iv IV 06/27/24 17:44 200 mls/hr Q8HR NATHAN Administration Propofol 1,000 mg in 100 mls @ 2.091 mls/hr 06/21/24 01:27 06/21/24 14:20 Diprivan Ivpb IV 07/20/24 12:42 0 mcg/kg/min .Q24H PRN 0 mls/hr PER PROTOCOL Titration Protocol 5 MCG/KG/MIN Fentanyl Citrate 2,500 mcg in 250 mls @ 5 mls/hr 06/21/24 01:27 06/21/24 14:20 Sublimaze Inj 2,500 Mcg/250 Ml Bag IV 06/25/24 13:12 0 mcg/hr .Q24H PRN 0 mls/hr PER PROTOCOL Titration Protocol 50 MCG/HR Vancomycin/Sodium Chloride 750 mg in 150 mls @ 120 mls/hr 06/21/24 22:00 Vancomycin/Ns 750 Mg Ivpb IV 06/28/24 21:59 QPM@2200 [facility] Protocol Lorazepam 2 mg 06/20/24 22:04 06/20/24 22:19 Lorazepam 2 Mg/Ml Vial IVP 06/26/24 00:00 2 mg Q2HR PRN Administration AGITATION Ondansetron HCl 4 mg 06/20/24 18:19 Ondansetron Inj 2 Mg/Ml Inj 2 Ml IV 07/20/24 18:18 Q8HR PRN NAUSEA OR VOMITING Protocol Pantoprazole Sodium 40 mg 06/20/24 14:30 06/21/24 09:03 Pantoprazole Inj 40 Mg Vial IVP 07/20/24 14:29 40 mg QDAY NATHAN Administration Pharmacy Consult 1 each 06/20/24 15:45 Vancomycin Pharmacy To Dose 1 Each Each IV 07/20/24 15:44 QDAY PRN PROTOCOL Plan The patient is a 68-year-old female, very well known to me, who has longstanding history of nonischemic cardiomyopathy, chronic systolic and diastolic heart failure, ejection fraction around 40%, status post COLLAR TRIMMER defibrillator implantation, paroxysmal atrial fibrillation, history of cholecystitis who underwent cholecystectomy in January 2024, was apparently supposed to see me in my office today, was not doing well for last 2 or 3 days and apparently collapsed in the bathroom and 911 was called. Apparently CPR was initiated, the patient had no pulse. ROSC was achieved after 3 rounds of epinephrine and CPR was performed, but there is no evidence of any shocks delivered by defibrillator. The patient has AICD internal defibrillator. She had another episode of cardiac arrest again and pulseless rhythm, underwent CPR, another round of epinephrine was given on the way to the hospital, downtime of about 20 minutes or so, the patient came to the hospital, was given vasopressors. Initial assessment showed bilateral chest bilateral alveolar interstitial infiltrates, possibly ARDS with pulmonary edema versus pneumonia. The patient is hypotensive requiring multiple vasopressors, now shows 100% paced rhythm. Currently on multiple vasopressors including IV antibiotics. 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 Patient is also having history of A-fib on warfarin.Initial labs showed metabolic acidosis, hemoglobin 8.4, white count 19.3. Chemistry panel showed metabolic acidosis. Initial potassium was 5, sodium 134, CO2 12, creatinine 1.4, blood glucose 300. Initial troponin I was 0.097. BNP 550. Lactic acidosis down trended to 2. Elevated liver enzymes. Chest x-ray showed extensive bilateral alveolar interstitial infiltrates, bilateral pneumonia and heart failure. Head CT was negative. ABGs showed pH 6.9, pCO2 60, pO2 110. Patient is admitted in ICU postcardiac arrest and CPR for further management. # Acute encephalopathy # Likely secondary to hypoxic brain injury versus prolonged cardiac arrest # Status post cardiac arrest requiring CPR # Possible PEA arrest versus V. tach/V-fib # History of nonischemic cardiomyopathy and chronic systolic and diastolic heart failure status post COLLAR TRIMMER-D, EF 40% # Paroxysmal A-fib now 100% paced rhythm ?Patient presented after collapsing in the restroom and 911 was called. Patient underwent CPR for cardiac arrest. ?Chest x-ray showing extensive bilateral pneumonia and pulmonary edema. Right IJ placed. EKG showed 100% paced rhythm. QTc 642. Head CT was negative for bleeding. ?Artemio's cardiac output: 3.1 L ?ICU team gave FFP's and vitamin K given coagulopathy and elevated INR Plan: ? Continue intubation with current ventilation settings and sedation with propofol and fentanyl ? Continue holding home medications including carvedilol, Entresto, Lasix and warfarin ? Continue IV antibiotic therapy with cefepime, vancomycin and Flagyl ? Follow-up on EEG for monitoring neurological functions ? Follow-up on echocardiogram to evaluate cardiac functions ? Continue vasopressors and titrate as needed keep MAP above 65 ? Will likely perform pacemaker interrogation to evaluate for arrhythmias including VT and V-fib ? Prognosis remains guarded given upward gaze and myoclonic jerks most likely related to hypoxic brain injury ? Follow-up on morning labs ? Bleeding precautions ? Replete electrolytes as necessary # NSTEMI type II likely supply demand ischemia ?Initial troponin I0.097--> 0.102 Plan: ? Monitor EKG closely ? Current EKG showing 100% paced rhythm Other active problems: # Shock likely mixed cardiogenic and septic # S/p cardiac arrest # intubated and sedated # Acute hypoxic respiratory failure # Likely secondary to community-acquired pneumonia versus ARDS versus pulm edema # History of GI bleed # Leukocytosis # Normocytic anemia # Coagulopathy requiring FFP and vitamin K # Likely related to warfarin versus DIC # Elevated INR and D-dimers # Possible DIC? # Metabolic acidosis # AMNA on CKD stage IIIb # Elevated transaminases # NSTEMI type II likely supply demand ischemia # History of diabetes Rest of the management as per ICU care team. Thank you very much for consulting cardiology team. Will likely follow-up with pacemaker interrogation to evaluate for cardiac arrhythmias including VT/V-fib. -- Plan of care discussed with dividing machine operator, Dr. Gibran Vega MD, PGY 2
--- NOTE | 2024-06-21 16:24 | PC.DIETICIAN ---
Nutrition prescription Trophic feeds of Vital 1.2 at 10 ml/hr via NG tube by pump. No water flushes at this time. When indicated by MD: Advance 10 ml every 8 hrs to goal rate of 50 ml/hr x 24 hrs. If no IV fluids, water flushes of 25 ml/hr (or per MD).
[2024-06-21] MEDS: FUROSEMIDE INJ 10 MG/ML 4ML VIAL 40 MG IVP (16:29)
[2024-06-21 18:37] LABS: Base Excess -13 (-3-3); HCO3 14 mEq/L (20-26); Inspired Oxygen, FIO2 30 %; O2 Saturation 99 % (91-98); PCO2 35 mmHg (32.0-48.0); PO2 144 mmHg (83-108); pH, Arterial 7.21 (7.35-7.45)
[2024-06-21 18:39] LABS: Allen Test Not Performed; Puncture Site Arterial Line
[2024-06-21] MEDS: ALBUTEROL/IPRATROPIUM (Duoneb) RT SOL 3 ML NEBU INH (18:54)
[2024-06-21 19:00] LABS: Anion Gap 9 (7-16); BUN/Creatinine Ratio 21 Ratio (12-20); Blood Urea Nitrogen 34 mg/dL (9-23); Calcium 8.9 mg/dL (8.3-10.6); Carbon Dioxide 15.9 mMol/L (20.0-31.0); Chloride 112 mMol/L (98-107); Creatinine (Component) 1.6 mg/dL (0.6-1.3); Estimated Creatinine Clearance 30.5 mL/min (>60); Glucose 129 mg/dL (74-106); Osmolality,Calculated 283 (275-295); Potassium 4.3 mMol/L (3.4-5.1); Sodium 137 mMol/L (136-145); eGFR 34 See Note
[2024-06-21 20:57] LABS: Base Excess -12 (-3-3); HCO3 15 mEq/L (20-26); Inspired Oxygen, FIO2 30 %; O2 Saturation 96 % (91-98); PCO2 38 mmHg (32.0-48.0); PO2 85 mmHg (83-108); pH, Arterial 7.22 (7.35-7.45)
[2024-06-21 21:01] LABS: Allen Test Not Performed; Puncture Site Arterial Line
[2024-06-21] MEDS: VANCOMYCIN/NS 750 MG IVPB 750 MG/150 ML BAG 120 MG IV (21:27)
[2024-06-21 22:40] LABS: Allen Test Not Performed; Base Excess -12 (-3-3); HCO3 15 mEq/L (20-26); Inspired Oxygen, FIO2 30 %; O2 Saturation 92 % (91-98); PCO2 38 mmHg (32.0-48.0); PO2 69 mmHg (83-108); Puncture Site Arterial Line; pH, Arterial 7.21 (7.35-7.45)
[2024-06-21 22:49] LABS: Chloride,Urine Random 43.6 mMol/L (55.0-125.0); Potassium,Urine Random 55 mMol/L (12-62); Sodium,Urine Random 22.8 mMol/L (20.0-110.0)
[2024-06-21] MEDS: Norepinephrine/D5W 8mg/250ml 8 MG/250 ML BAG 6.806 MG IV (23:27)
[2024-06-21] MEDS: ROCURONIUM INJ 10 MG/ML VIAL 10 ML 50 MG IVP (23:31)
[2024-06-22] VITALS (81 sets, daily range): BP systolic 94–174; BP diastolic 43–90; PULSE 72–110; RESP 32–33; TEMP 36–37.3; O2SAT 91–100; BMI 27.8
[2024-06-22 00:53] LABS: Base Excess -12 (-3-3); HCO3 13 mEq/L (20-26); O2 Saturation 99 % (91-98); PCO2 26 mmHg (32.0-48.0); PO2 94 mmHg (83-108); pH, Arterial 7.33 (7.35-7.45)
[2024-06-22 00:58] LABS: Allen Test Not Performed; Inspired Oxygen, FIO2 30 %; Puncture Site Arterial Line
[2024-06-22] MEDS: fentaNYL 2,500 MCG/250 ML BAG 2,500 MCG/250 ML BAG 15 MCG IV ×2 (01:29→22:26)
[2024-06-22] MEDS: PROPOFOL 1,000 MG IVPB 1,000 MG/100 ML VIAL 10.89 MG IV (01:30)
[2024-06-22] MEDS: CISATRACURIUM INJ 200 MG in SODIUM CHLORIDE 0.9% 500 ML 500 ML 11.326 MG IV (01:58)
[2024-06-22 03:41] LABS: Alanine Aminotransferase 131 U/L (10-49); Albumin, Serum 3.8 gm/dL (3.4-4.8); Albumin/Globulin Ratio 1.9 (1.2-2.2); Alkaline Phosphatase 182 U/L (46-116); Anion Gap 10 (7-16); Aspartate Amino Transferase 81 U/L (0-34); BUN/Creatinine Ratio 23 Ratio (12-20); Bilirubin,Total 0.4 mg/dL (0.3-1.2); Blood Urea Nitrogen 36 mg/dL (9-23); Calcium 8.6 mg/dL (8.3-10.6); Calcium (Corrected) 8.8 mg/dL (8.5-10.1); Carbon Dioxide 15.9 mMol/L (20.0-31.0); Chloride 113 mMol/L (98-107); Creatinine (Component) 1.6 mg/dL (0.6-1.3); Estimated Creatinine Clearance 30.5 mL/min (>60); Glucose 134 mg/dL (74-106); Magnesium 1.8 mg/dL (1.6-2.6); Osmolality,Calculated 287 (275-295); Phosphorous 4.4 mg/dL (2.4-5.1); Potassium 3.6 mMol/L (3.4-5.1); Sodium 139 mMol/L (136-145); Total Protein 5.8 gm/dL (5.7-8.2); eGFR 34 See Note
[2024-06-22] MEDS: metroNIDAZOLE/NS 500 MG IVPB 500 MG/100 ML BAG 200 MG IV (05:04)
[2024-06-22 05:16] LABS: Base Excess -10 (-3-3); HCO3 15 mEq/L (20-26); Inspired Oxygen, FIO2 30 %; O2 Saturation 98 % (91-98); PCO2 26 mmHg (32.0-48.0); PO2 84 mmHg (83-108); pH, Arterial 7.36 (7.35-7.45)
[2024-06-22 05:20] LABS: Puncture Site Arterial Line
[2024-06-22] MEDS: Magnesium Sulfate 4 GM Ivpb 4 GM/50 ML BAG IV (05:45)
[2024-06-22 06:13] LABS: Basophils % (Auto) 0 % (0-2.5); Eosinophils % (Auto) 0 % (0-10); Hematocrit 21.2 % (36.0-46.0); Immature Granulocytes % (Auto) 1 % (0-0); Immature Granulocytes Auto 0.04 Thou/mm3 (0.00-0.00); Lymphocytes # (Auto) 0.3 Thou/mm3 (1.0-4.8); Lymphocytes % (Auto) 5 % (10-50); Mean Corpuscular Hemoglobin 32.1 pg (25.0-35.0); Mean Corpuscular Volume 97 fL (80-100); Monocytes # (Auto) 0.6 Thou/mm3 (0.0-0.8); Monocytes % (Auto) 9 % (0-12); Neutrophils # (Auto) 5.9 Thou/mm3 (1.8-7.7); Neutrophils % (Auto) 86 % (37-80); Nucleated Red Blood Cell # 0.03 Thou/mm3 (0.00-0.00); Nucleated Red Blood Cell % 0 /100 WBC (0); Platelet Count 114 Thou/mm3 (140-440); RDW Standard Deviation 56.9 fL (36.4-46.3); Red Blood Count 2.18 Miln/mm3 (4.00-5.20); White Blood Count 6.8 Thou/mm3 (3.6-11.0)
[2024-06-22 06:22] LABS: INR 2.8 (0.9-1.3); Prothrombin Time 28.5 Seconds (9.0-12.2)
--- NOTE | 2024-06-22 06:40 | XR_ITS ---
Examination: AP chest single view Technique one AP portable semiupright chest single view Exam date and time: June 22, 2024 0650 hrs. Comparison June 21, 2024, June 20, 2024 Indications: Severe pneumonia ARDS, status post cardiopulmonary arrest today, hypoxic respiratory failure postintubation post central line placement Findings: Again noted extensive bilateral pneumonia is RDS pattern with possible pulmonary edema Enlarged left ventricle Endotracheal tube tip 3.4 cm above janis Cardiac leads stable position Right internal jugular central line tip superior vena cava No pneumothorax Orogastric tube in the stomach satisfactory position Prominent osteopenia Impression: No significant change in severe pneumonia/ARDS, pulmonary edema pattern
[2024-06-22 06:43] LABS: Alanine Aminotransferase 120 U/L (10-49); Albumin, Serum 3.5 gm/dL (3.4-4.8); Albumin/Globulin Ratio 1.8 (1.2-2.2); Alkaline Phosphatase 171 U/L (46-116); Anion Gap 12 (7-16); Aspartate Amino Transferase 77 U/L (0-34); BUN/Creatinine Ratio 21 Ratio (12-20); Bilirubin,Total 0.4 mg/dL (0.3-1.2); Blood Urea Nitrogen 32 mg/dL (9-23); Calcium 8.4 mg/dL (8.3-10.6); Calcium (Corrected) 8.8 mg/dL (8.5-10.1); Chloride 114 mMol/L (98-107); Creatinine (Component) 1.5 mg/dL (0.6-1.3); Estimated Creatinine Clearance 32.3 mL/min (>60); Glucose 128 mg/dL (74-106); Osmolality,Calculated 286 (275-295); Potassium 3.2 mMol/L (3.4-5.1); Sodium 139 mMol/L (136-145); Total Protein 5.5 gm/dL (5.7-8.2); eGFR 37 See Note
[2024-06-22 06:51] LABS: Carbon Dioxide 13.5 mMol/L (20.0-31.0)
[2024-06-22 07:36] LABS: Basophils % (Auto) 0 % (0-2.5); Eosinophils % (Auto) 0 % (0-10); Hematocrit 20.4 % (36.0-46.0); Immature Granulocytes % (Auto) 1 % (0-0); Immature Granulocytes Auto 0.04 Thou/mm3 (0.00-0.00); Lymphocytes # (Auto) 0.4 Thou/mm3 (1.0-4.8); Lymphocytes % (Auto) 6 % (10-50); Mean Corpuscular HGB Conc 34.3 g/dl (31.0-37.0); Mean Corpuscular Hemoglobin 32.7 pg (25.0-35.0); Mean Corpuscular Volume 95 fL (80-100); Monocytes # (Auto) 0.5 Thou/mm3 (0.0-0.8); Monocytes % (Auto) 8 % (0-12); Neutrophils # (Auto) 5.6 Thou/mm3 (1.8-7.7); Neutrophils % (Auto) 86 % (37-80); Nucleated Red Blood Cell # 0.02 Thou/mm3 (0.00-0.00); Nucleated Red Blood Cell % 0 /100 WBC (0); Platelet Count 118 Thou/mm3 (140-440); RDW Standard Deviation 54.3 fL (36.4-46.3); Red Blood Count 2.14 Miln/mm3 (4.00-5.20); White Blood Count 6.5 Thou/mm3 (3.6-11.0)
[2024-06-22] MEDS: POTASSIUM CHL 10 mEq IVPB 10 MEQ/100 ML BAG 100 MEQ IV ×6 (07:47→13:36)
[2024-06-22] MEDS: PANTOPRAZOLE INJ 40 MG VIAL IVP (08:27)
[2024-06-22] MEDS: CEFEPIME INJ 2 GM in SODIUM CHLORIDE 0.9% (P) 50 ML IV (08:27)
--- NOTE | 2024-06-22 11:10 | ESPR_ITS ---
<Statement entered by Johanny Keyes MD - 06/23/24 05:28> Patient was seen and examined by me personally. I have directly supervised and reviewed the above documentation by the team resident and agree with its findings with any exceptions or additional findings as below. Plan of care was discussed with the attending, Dr. Larios. Johanny Keyes, PGY-2 Documentation for date of: 06/22/24 Subjective Subjective Interval history: Patient was seen and examined bedside in the ICU. Overnight, patient found to have elevated peak pressures noted on ventilator for which patient was started on paralytics and ventilatory settings were adjusted in view of ongoing respiratory acidosis. Noted to be biting the tube with seizure-like activity for which patient was given a dose of lorazepam 2 Mg. In the morning patient was weaned off paralytics and vitals were stable despite being off vasopressors since yesterday. Labs showed drop in hemoglobin from 8.1 to 7 for which CBC was repeated again which showed the same value. INR still elevated with 2.3, APTT is 54. ABG showed pH 7.36, pCO2 26, bicarb 15. Potassium is 3.2 for which 60 mEq of IV potassium was given. Renal function seems to be improving. In view of hemoglobin drop, her repeat hemoglobin is scheduled in the afternoon if the hemoglobin drops further we will plan to do imaging to rule out any internal bleeding. Pending EEG and echo report. Dr. Leary saw the patient and [employer] check did not show any arrhythmias at the time of cardiac arrest. Goals of care and prognosis were explained to the family. Exam Vital Signs Temp Pulse Resp BP Pulse Ox O2 Del Method O2 Flow Rate 96.8 F 96 32 H 144/70 H 95 Mechanical Ventilation 15 06/22/24 08:00 06/22/24 09:00 06/22/24 06:08 06/22/24 09:00 06/22/24 09:00 06/22/24 08:00 06/20/24 11:41 FiO2 30 06/22/24 08:00 Narrative Exam Gen: Well-developed and well-nourished. GCS 3. On mechanical ventilator HEENT: NCAT, pupils equal,sluggishly reacting to light upwards gaze fixation. CVS: normal S1 and S2. Regular rate and rhythm. Resp: CTA B/L. Bilateral diffuse wheeze heard Abd: soft, non-tender, non-distended. BS+ in all 4 quadrants. MSK: Diffuse myoclonic jerks are noted. Neuro: Alert and oriented x0. Upward gaze fixation and sluggish reaction to light is noted Objective Labs 06/22/24 07:02 06/22/24 05:57 Labs: Laboratory Results - last 24 hr 06/20/24 06/21/24 06/21/24 12:27 10:46 13:15 WBC RBC Hgb Hct MCV MCH MCHC RDW Std Deviation Plt Count Neut % (Auto) Lymph % (Auto) Banner % (Auto) Eos % (Auto) Baso % (Auto) Neut # (Auto) Lymph # (Auto) Banner # (Auto) Eos # (Auto) Baso # (Auto) Immature Gran # (Auto) Absolute Nucleated RBC Immature Gran % Nucleated RBC % PT 44.1 H* D INR 4.5 H* Puncture Site Arterial Line ABG pH 7.23 L ABG pCO2 36 ABG pO2 93 ABG HCO3 15 L ABG O2 Saturation 97 ABG Base Excess -11 L FiO2 40 Sodium Potassium Chloride Carbon Dioxide Anion Gap BUN Creatinine Estim Creat Clear Calc eGFR BUN/Creatinine Ratio Glucose Calculated Osmolality Calcium Corrected Calcium Phosphorus Magnesium Total Bilirubin AST ALT Alkaline Phosphatase Total Protein Albumin Globulin Albumin/Globulin Ratio Ur Random Sodium Ur Random Potassium Ur Random Chloride Blood Type A Positive Antibody Screen NEGATIVE Crossmatch See Detail Blood Bank Wristband ID Yes Blood Bank Comment FFP Ready 06/21/24 06/21/24 06/21/24 18:08 18:33 20:51 WBC RBC Hgb Hct MCV MCH MCHC RDW Std Deviation Plt Count Neut % (Auto) Lymph % (Auto) Banner % (Auto) Eos % (Auto) Baso % (Auto) Neut # (Auto) Lymph # (Auto) Banner # (Auto) Eos # (Auto) Baso # (Auto) Immature Gran # (Auto) Absolute Nucleated RBC Immature Gran % Nucleated RBC % PT INR Puncture Site Arterial Line Arterial Line ABG pH 7.21 L 7.22 L ABG pCO2 35 38 ABG pO2 144 H D 85 D ABG HCO3 14 L 15 L ABG O2 Saturation 99 H 96 ABG Base Excess -13 L -12 L FiO2 30 30 Sodium 137 Potassium 4.3 Chloride 112 H Carbon Dioxide 15.9 L Anion Gap 9 BUN 34 H Creatinine 1.6 H Estim Creat Clear Calc 30.5 L eGFR 34 L BUN/Creatinine Ratio 21 H Glucose 129 H D Calculated Osmolality 283 Calcium 8.9 Corrected Calcium Phosphorus Magnesium Total Bilirubin AST ALT Alkaline Phosphatase Total Protein Albumin Globulin Albumin/Globulin Ratio Ur Random Sodium Ur Random Potassium Ur Random Chloride Blood Type Antibody Screen Crossnvtch Blood Bank [facility] Blood Bank Comment 06/21/24 06/21/24 06/22/24 22:00 22:34 00:39 WBC RBC Hgb Hct MCV MCH MCHC RDW Std Deviation Plt Count Neut % (Auto) Lymph % (Auto) Banner % (Auto) Eos % (Auto) Baso % (Auto) Neut # (Auto) Lymph # (Auto) Banner # (Auto) Eos # (Auto) Baso # (Auto) Immature Gran # (Auto) Absolute Nucleated RBC Immature Gran % Nucleated RBC % PT INR Puncture Site Arterial Line Arterial Line ABG pH 7.21 L 7.33 L D ABG pCO2 38 26 L D ABG pO2 69 L 94 D ABG HCO3 15 L 13 L ABG O2 Saturation 92 99 H ABG Base Excess -12 L -12 L FiO2 30 30 Sodium Potassium Chloride Carbon Dioxide Anion Gap BUN Creatinine Estim Creat Clear Calc eGFR BUN/Creatinine Ratio Glucose Calculated Osmolality Calcium Corrected Calcium Phosphorus Magnesium Total Bilirubin AST ALT Alkaline Phosphatase Total Protein Albumin Globulin Albumin/Globulin Ratio Ur Random Sodium 22.8 Ur Random Potassium 55 Ur Random Chloride 43.6 L Blood Type Antibody Screen Crossnvtch Blood [facility] Blood Bank Comment 06/22/24 06/22/24 06/22/24 02:38 05:08 05:57 WBC 6.8 D RBC 2.18 L Hgb 7.0 L Hct 21.2 L* MCV 97 MCH 32.1 MCHC 33.0 RDW Std Deviation 56.9 H Plt Count 114 L D Neut % (Auto) 86 H Lymph % (Auto) 5 L Banner % (Auto) 9 Eos % (Auto) 0 Baso % (Auto) 0 Neut # (Auto) 5.9 Lymph # (Auto) 0.3 L Banner # (Auto) 0.6 Eos # (Auto) 0.0 Baso # (Auto) 0.0 Immature Gran # (Auto) 0.04 H Absolute Nucleated RBC 0.03 H Immature Gran % 1 H Nucleated RBC % 0 PT 28.5 H D INR 2.8 H Puncture Site Arterial Line ABG pH 7.36 ABG pCO2 26 L ABG pO2 84 ABG HCO3 15 L ABG O2 Saturation 98 ABG Base Excess -10 L FiO2 30 Sodium 139 139 Potassium 3.6 D 3.2 L Chloride 113 H 114 H Carbon Dioxide 15.9 L 13.5 L* Anion Gap 10 12 BUN 36 H 32 H Creatinine 1.6 H 1.5 H Estim Creat Clear Calc 30.5 L 32.3 L eGFR 34 L 37 L BUN/Creatinine Ratio 23 H 21 H Glucose 134 H 128 H Calculated Osmolality 287 286 Calcium 8.6 8.4 Corrected Calcium 8.8 8.8 Phosphorus 4.4 Magnesium 1.8 Total Bilirubin 0.4 0.4 AST 81 H 77 H ALT 131 H 120 H Alkaline Phosphatase 182 H D 171 H Total Protein 5.8 5.5 L Albumin 3.8 3.5 Globulin 2.0 L 2.0 L Albumin/Globulin Ratio 1.9 1.8 Ur Random Sodium Ur Random Potassium Ur Random Chloride Blood Type Antibody Screen Crossmatch Blood Bank Wristband ID Blood Bank Comment 06/22/24 07:02 WBC 6.5 RBC 2.14 L Hgb 7.0 L Hct 20.4 L* MCV 95 MCH 32.7 MCHC 34.3 RDW Std Deviation 54.3 H Plt Count 118 L Neut % (Auto) 86 H Lymph % (Auto) 6 L Banner % (Auto) 8 Eos % (Auto) 0 Baso % (Auto) 0 Neut # (Auto) 5.6 Lymph # (Auto) 0.4 L Banner # (Auto) 0.5 Eos # (Auto) 0.0 Baso # (Auto) 0.0 Immature Gran # (Auto) 0.04 H Absolute Nucleated RBC 0.02 H Immature Gran % 1 H Nucleated RBC % 0 PT INR Puncture Site ABG pH ABG pCO2 ABG pO2 ABG HCO3 ABG O2 Saturation ABG Base Excess FiO2 Sodium Potassium Chloride Carbon Dioxide Anion Gap BUN Creatinine Estim Creat Clear Calc eGFR BUN/Creatinine Ratio Glucose Calculated Osmolality Calcium Corrected Calcium Phosphorus Magnesium Total Bilirubin AST ALT Alkaline Phosphatase Total Protein Albumin Globulin Albumin/Globulin Ratio Ur Random Sodium Ur Random Potassium Ur Random Chloride Blood Type Antibody Screen Crossmatch Blood Bank Wristband ID Blood Bank Comment ABG Interpretation ABG results: 06/20/24 06/20/24 06/20/24 12:44 13:58 18:24 ABG pH 6.91 L* 7.06 L* D 7.22 L D ABG pCO2 61 H 53 H 41 D ABG pO2 115 H 159 H D 66 L D ABG HCO3 12 L 15 L 17 L ABG O2 Saturation 96 99 H 92 ABG Base Excess -19 L -15 L -11 L VBG pH VBG pCO2 VBG pO2 VBG Base Excess 06/20/24 06/21/24 06/21/24 22:03 00:10 04:06 ABG pH 7.14 L* 7.24 L D 7.29 L ABG pCO2 45 33 D 30 L ABG pO2 95 D 116 H D 97 ABG HCO3 15 L 14 L 14 L ABG O2 Saturation 97 99 H 99 H ABG Base Excess -13 L -12 L -11 L VBG pH VBG pCO2 VBG pO2 VBG Base Excess 06/21/24 06/21/24 06/21/24 09:48 13:15 18:33 ABG pH 7.23 L 7.21 L ABG pCO2 36 35 ABG pO2 93 144 H D ABG HCO3 15 L 14 L ABG O2 Saturation 97 99 H ABG Base Excess -11 L -13 L VBG pH 7.27 L VBG pCO2 35 L VBG pO2 37 VBG Base Excess -10 L 06/21/24 06/21/24 06/22/24 20:51 22:34 00:39 ABG pH 7.22 L 7.21 L 7.33 L D ABG pCO2 38 38 26 L D ABG pO2 85 D 69 L 94 D ABG HCO3 15 L 15 L 13 L ABG O2 Saturation 96 92 99 H ABG Base Excess -12 L -12 L -12 L VBG pH VBG pCO2 VBG pO2 VBG Base Excess 06/22/24 05:08 ABG pH 7.36 ABG pCO2 26 L ABG pO2 84 ABG HCO3 15 L ABG O2 Saturation 98 ABG Base Excess -10 L VBG pH VBG pCO2 VBG pO2 VBG Base Excess Quality Measures Quality Measures VTE prophylaxis (on hold ) Advance care planning discussed with:: child and legal surragate Assessment & Plan Assessment Current Active Medications: Generic Name Dose Route Start Last Admin Trade Name Freq PRN Reason Stop Dose Admin Acetaminophen 650 mg 06/20/24 15:38 Acetaminophen 325 Mg Tablet PO 07/20/24 14:18 Q4HR PRN Temp >98.6 or Pain Acetaminophen 650 mg 06/20/24 15:38 Acetaminophen Supp 650 Mg Supp NE 07/20/24 14:18 Q4HR PRN Temp >98.6 or Pain Albuterol/Ipratropium 3 ml 06/20/24 22:07 06/21/24 18:54 Albuterol/Ipratropium (Duoneb) Rt Susan 3 Ml Nebu INH 07/21/24 00:00 3 ml Q2HR PRN Administration wheezing Dextrose 50 ml 06/20/24 22:16 Dextrose 50%-Water Inj 50 Ml Syringe IV 07/20/24 22:15 Q15MIN PRN BG <50 OR BG <70 & pt unresponsive Dextrose 25 ml 06/21/24 18:55 Dextrose 50%-Water Inj 50 Ml Syringe IV 07/21/24 18:54 Q15MIN PRN BG 50-70 responsive npo pt Furosemide 40 mg 06/22/24 10:00 Furosemide Inj 10 Mg/Ml 4ml Vial IVP 07/22/24 09:59 BIDD [facility] Glucagon 1 mg 06/20/24 22:16 Glucagon Inj 1 Mg Vial IM Q15MIN PRN BG <70, and no IV access Glucagon 1 mg 06/21/24 18:52 Glucagon Inj 1 Mg Vial IM Q15MIN PRN BG <70, and no IV access Heparin Sodium (Porcine) 5,000 unit 06/20/24 21:00 06/20/24 20:36 Heparin Sod Inj 5000 Unit/Ml Vial SC 07/04/24 20:59 Not Given Q12HR [facility] Epinephrine HCl 16 mg/ Sodium 250 mls @ 2.977 mls/hr 06/20/24 17:29 06/21/24 14:45 Chloride IV 07/20/24 17:28 0 mcg/kg/min .Q24H PRN 0 mls/hr Per Protocol Titration Protocol 0.05 MCG/KG/MIN Norepinephrine/Dextrose 8 mg in 250 mls @ 6.806 mls/hr 06/21/24 23:23 06/22/24 00:19 Levophed In D5w 8mg/250ml IV 07/21/24 23:22 0 mcg/kg/min .Q24H PRN 0 mls/hr PER PROTOCOL Titration Protocol 0.05 MCG/KG/MIN Cisatracurium Besylate 200 mg/ 520 mls @ 11.326 mls/hr 06/22/24 01:04 06/22/24 07:53 Sodium Chloride IV 07/22/24 01:01 0 mcg/kg/min .Q24H PRN 0 mls/hr Per Protocol Titration Protocol 1 MCG/KG/MIN Fentanyl Citrate 2,500 mcg in 250 mls @ 15 mls/hr 06/22/24 01:22 06/22/24 07:53 Sublimaze Inj 2,500 Mcg/250 Ml Bag IV 06/27/24 01:21 0 mcg/hr .[id number] PRN 0 mls/hr PER PROTOCOL Titration Protocol 150 MCG/HR Propofol 1,000 mg in 100 mls @ 10.89 mls/hr 06/22/24 01:23 06/22/24 07:53 Diprivan Ivpb IV 07/22/24 01:22 0 mcg/kg/min .Q9H11M PRN 0 mls/hr PER PROTOCOL Titration Protocol 25 MCG/KG/MIN Potassium Chloride 10 meq in 100 mls @ 100 mls/hr 06/22/24 07:10 06/22/24 10:08 Kcl Ivpb IV 06/22/24 13:09 100 mls/hr Q1H NATHAN Administration Ceftriaxone Sodium/Dextrose 50 mls @ 100 mls/hr 06/22/24 09:55 Rocephin/D5w 1gm Iv Premix IV 06/29/24 09:54 QDAY [facility] Insulin Glargine 17 unit 06/22/24 09:00 06/22/24 08:23 Insulin Glargine (Lantus) 5 Unit/0.05 Ml (Per 5 Units) SC 07/22/24 08:59 Not Given QDAY [facility] Insulin Human Lispro 0 unit 06/22/24 12:00 Insulin Lispro (Admelog) 1 Unit/0.01 Ml Unit SC 07/22/24 11:59 Q6HR NATHAN Protocol Lorazepam 2 mg 06/20/24 22:04 06/21/24 23:11 Lorazepam 2 Mg/Ml Vial IVP 06/26/24 00:00 2 mg Q2HR PRN Administration AGITATION Ondansetron HCl 4 mg 06/20/24 18:19 Ondansetron Inj 2 Mg/Ml Inj 2 Ml IV 07/20/24 18:18 Q8HR PRN NAUSEA OR VOMITING Protocol Pantoprazole Sodium 40 mg 06/20/24 14:30 06/22/24 08:27 Pantoprazole Inj 40 Mg Vial IVP 07/20/24 14:29 40 mg QDAY [facility] Administration Plan The patient is a 68-year-old female with a previous medical history of HFpEF EF 40-45% 01/27, nonischemic cardiomyopathy, [employer]-D placement, A-fib on warfarin (chart review), hypertension, anemia who was brought to the ED by EMS in cardiac arrest. Exact time of the cardiac arrest is unknown, most of the history was received per chart review, she was seated on the toilet and found slumped over. She arrived to the ED at 11: 41, on the way she received epinephrine 1 mg 3 times, atropine and was intubated. After 4 minutes of resuscitation measures, ROSC was obtained. Her blood pressure was low and she was started on epinephrine drip, she was also started on propofol and fentanyl for sedation. Patient was admitted to the ICU for shock and post-cardiac arrest management and treatment. NEURO # Acute encephalopathy Most likely due to hypoxic brain injury and prolonged cardiac arrest. GCS 3. Head CT (06/20): No signs of ischemic stroke, bleeding, fractures, 3 cm meningioma which is unlikely the cause of the encephalopathy. U tox was positive for benzodiazepines. Sedation was stopped for sedation holiday on 06/21/2024, neurological status remains the same. Plan: ? EEG done-report is pending ? Will possibly consider MRI in the future ? Euthermia, keep temperature at 36C -Lorazepam as needed is added in view of suspected seizure secondary to hypoxic brain injury. CARDIO # Shock due to unknown reasons #Status post cardic arrest Most likely cardiogenic. NICOM monitoring did reveal that the patient is fluid responsive, SVI is normal, TPR is significantly increased with pressors possibly contributing to that. Additionally, Patient has a history of HFpEF, [employer]-D placement, nonischemic cardiomyopathy. Family reported that in previous days she was having shortness of breath and chest discomfort, which she previously had during CHF exacerbations. In the ED [employer] was pacing. Troponin I was elevated, but could be elevated after CPR. Dr. Leary is following the patient, [employer] was checked and showed no arrhythmias, likely pulseless electrical activity causing the cardiac arrest. Differentials include: 1. Septic. Patient has acute hypoxic respiratory failure and chest x-ray showed bilateral pneumonia. TPR is high and patient is not fluid responsive. 2. Hypovolemic. Patient has no signs of active bleeding which could be the reason of her condition. She is not fluid responsive. 3. Neurogenic. Unlikely, due to absence of trauma and stroke on the CT. 4. Obstructive. Patient has acute hypoxia, but CXR negative for pneumothorax, no signs of DVT, Wells score 0. Unlikely to be the cause of shock. Plan: ? NICOM to gather more hemodynamic data. ? Echo done -official read is pending but talked with Dr. Leary and reported that EF is 40 to 45% with severe MR with no RWMA ?VBG, blood from right atrium to assess CO2 ? Weaned off norepinephrine on 06/21/2024 # History of HFrEF [40 to 45% EF] -Patient is on carvedilol, Lasix and potassium chloride at home. -Patient was initially on 80 Mg Lasix as recommended by Dr. Leary but 2 days before the admission the Lasix dose was decreased to 20 Mg by her primary care provider -Chest x-ray at the time of admission showed bilateral moderate to severe vascular congestion. -Patient received 2 L of NS bolus in the ED. -Patient received a dose of Lasix 40 Mg on 06/21/2024. Plan -As the patient's chest x-ray is still showing bilateral moderate to severe vascular congestion, will start furosemide 40 Mg IV twice daily. -Will monitor RFT and serum electrolytes. # History of A-fib s/p AICD-on warfarin -currently in sinus rhythm -Patient is following Dr. Leary for the heart issues. -No rhythm abnormalities found on [employer] check and during the hospital stay. -In the ED, per rectal examination showed black tarry stools and later tested guaiac positive. -Patient's INR at the time of admission is 4 and later found to have bleeding at the site of arterial line for which patient received a dose of tranexamic acid, vitamin K and a bag of FFP -On 06/21/2024, INR is still elevated at 4.8 for which 1 more bag of FFP is transfused and no further episodes of bleeding was noted. Plan -INR on 06/22/2024 is 2.8 and no external bleeding noted except for ecchymotic patches on the left sanchez and right upper extremity. -Noted hemoglobin dropped from 8-7.1 but the patient was hemodynamically stable even without vasopressor support -Plan to repeat CBC in the afternoon and if the hemoglobin is further dropping, we will do imaging to look for bleed and do the necessary. -Blood crossmatching was already ordered PULM # Acute hypoxic respiratory failure #Bilateral pneumonia #Respiratory acidosis # Possible aspiration Previous chest x-ray 06/18 showed mild CHF. Chest x-ray on 06/20 showed bilateral pneumonia. Also there are signs of possible pulmonary edema. Chest x-ray changes could also be attributed to aspiration. Ventilation settings were changed, RR was increased to 26 and then to 30. Patient is allergic to ampicillin, therefore Zosyn was not started. -On 06/21/2024 around 7 PM patient was found to have elevated plateau and peak pressures for which patient was paralyzed with cis atracurium and respiratory rate was increased to 32 following which the plateau and peak pressures came down to normal limits. -Cisatracurium infusion was stopped on 06/22/2024 around 7 AM. -ABG done today showed pH 7.36, pCO2 26, bicarb 15 on VC/AC mode with FiO2 30%, PEEP 5, tidal volume 420 mL. Plan: ? ET secretions cultures -Gram stain showed 1+ GPC, cultures are still pending ? Vancomycin 06/20?present = stopped on 06/22/2024 as MRSA screen came back negative and blood cultures showed no growth after 24 hours. ? Cefepime 06/20?present = stopped on 06/22/2024 as blood cultures showed no growth after 24 hours. - Metronidazole 06/20-present, stopped as of 06/22/2024 - Started on ceftriaxone [06/22/2024-present] in view of gram-positive cocci in ET secretions GI # History of GI bleed -In the ED, per rectal examination showed black tarry stools and later tested guaiac positive. -Received a pack of PRBC on the day of admission. Plan: ? Protonix IV NEPHRO # AMNA, improving #Metabolic acidosis with respiratory acidosis Most likely due to hypoxic injury in the setting of cardiac arrest and acute hypoxic respiratory failure. Plan: ? Will continue to monitor CMP URO #No active problems HEME # Chronic anemia #Coagulopathy Patient has a history of chronic anemia and receiving blood transfusions. After arterial line placement, the site was oozing blood. After applying pressure for 30 minutes bleeding did not resolve. After more time and tranexamic acid 1g, FFP transfusion it stopped. DIC panel negative on 06/20/2024. Plan: -Noted hemoglobin dropped from 8-7.1 but the patient was hemodynamically stable even without vasopressor support -Plan to repeat CBC in the afternoon and if the hemoglobin is further dropping, we will do imaging to look for bleed and do the necessary. -Reordered DIC panel today. ENDO #No active problems ID #Bilateral pneumonia #Possible septic shock Plan: ? ET secretions cultures -Gram stain showed 1+ GPC, cultures are still pending ? Vancomycin 06/20?present = stopped on 06/22/2024 as MRSA screen came back negative and blood cultures showed no growth after 24 hours. ? Cefepime 06/20?present = stopped on 06/22/2024 as blood cultures showed no growth after 24 hours. - Metronidazole 06/20-present, stopped as of 06/22/2024 - Started on ceftriaxone [06/22/2024-present] in view of gram-positive cocci in ET secretions MSK #No active problems SKIN #No active problems DVT prophylaxis: none due to hypocoagulation GI prophylaxis: protonix Diet: NG tube feeds Fuentes: Present Lines: peripheral, central, arterial Antibiotics: ceftriaxone CODE STATUS: FULL CODE Reason for ICU care: shock due to unknown reasons and status post cardic arrest. Plan of care discussed with attending Dr. Larios and senior resident physician Dr. Wali Babin MD, PGY 1.
[2024-06-22] MEDS: FUROSEMIDE INJ 10 MG/ML 4ML VIAL 40 MG IVP ×2 (11:22→17:05)
[2024-06-22] MEDS: cefTRIAXone/D5w 1gm IV premix 50 ML IV (11:23)
[2024-06-22] MEDS: ALBUTEROL/IPRATROPIUM (Duoneb) RT SOL 3 ML NEBU INH (11:24)
[2024-06-22] MEDS: INSULIN LISPRO (AdmeLOG) 1 UNIT/0.01 ML UNIT SC ×2 (11:53→17:05)
--- NOTE | 2024-06-22 13:04 | ESPR_ITS ---
Documentation for date of: 06/22/24 Subjective Subjective Interval history: This is a 68yo F who was brought to the ER s/p cardiac arrest. Apparently she was in the bathroom earlier today and had a syncopal event. EMS was called and on arrival she was found to be pulseless and CPR was initiated. ROSC was achieved after 3 rounds of epi. During transit pulse was lost once more and CPR resumed. Pt was undergoing CPR on arrival to the ER. ROSC was achieved after arrival and pt felt to have had a total downtime of ~20min. Pts initial rhythm is unknown. In the ER labs were obtained after ROSC as well as CXR. CXR shows diffuse fluffy infiltrates and labs are significant for severe acidosis. Rectal exam done in the ER showed a pos hemoccult. pt seen in ER room 2. Per family pt has has SOB for the last 2 days. She visited her PCP and had labs and a CXR done. Has had changes to her cardiac regimen over the last 2 months. This AM very SOB, went to the bathroom and called out for help then collapsed. 06/21-overnight has had a decrease in her vasopressor requirements. Did have occasional episodes with desatting on the vent. ABGs were followed and I was called overnight on several occasions for additional ventilator management. She continues to have ongoing myoclonic jerks. She has had an adequate urinary output. She remains afebrile 06/22-overnight patient developed worsening respiratory acidosis, several vent changes were made. The decision was made to paralyze her at around midnight. Patient required Levophed briefly for about an hour overnight however this morning is off of vasopressors. She was given Lasix with good urinary output. There has been no change in her mental status Critical Care Note Critical care time (min.): 60 Exam Vital Signs Temp Pulse Resp BP Pulse Ox O2 Del Method O2 Flow Rate 96.8 F 97 32 H 164/68 H 98 Mechanical Ventilation 15 06/22/24 08:00 06/22/24 11:24 06/22/24 11:24 06/22/24 11:24 06/22/24 11:24 06/22/24 08:00 06/20/24 11:41 FiO2 30 06/22/24 11:24 Narrative Exam General-intubated, sedated, on paralytic, obese HEENT-normocephalic, atraumatic, sclera icteric, pupils small and sluggish, mucosa hydrated, ET tube and OG tube in place Chest-lung gonzalez diminished occasional crackles at bases, heart regular rhythmic, no bruits auscultated, no increased work of breathing Abdomen-soft, no apparent tenderness, bowel sounds present Extremities-no edema lower extremities, pulses palpable, no clubbing or cyanosis, no mottling Vent PRVC Drips Nimbex Propofol Fentanyl Physical Exam Completion Physical Exam Complete?: Yes 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 06/22/24 07:02 06/22/24 05:57 Labs: Laboratory Results - last 24 hr 06/20/24 06/21/24 06/21/24 12:27 13:15 18:08 WBC RBC Hgb Hct MCV MCH MCHC RDW Std Deviation Plt Count Neut % (Auto) Lymph % (Auto) Forrest % (Auto) Eos % (Auto) Baso % (Auto) Neut # (Auto) Lymph # (Auto) Forrest # (Auto) Eos # (Auto) Baso # (Auto) Immature Gran # (Auto) Absolute Nucleated RBC Immature Gran % Nucleated RBC % PT INR Puncture Site Arterial Line ABG pH 7.23 L ABG pCO2 36 ABG pO2 93 ABG HCO3 15 L ABG O2 Saturation 97 ABG Base Excess -11 L FiO2 40 Sodium 137 Potassium 4.3 Chloride 112 H Carbon Dioxide 15.9 L Anion Gap 9 BUN 34 H Creatinine 1.6 H Estim Creat Clear Calc 30.5 L eGFR 34 L BUN/Creatinine Ratio 21 H Glucose 129 H D Calculated Osmolality 283 Calcium 8.9 Corrected Calcium Phosphorus Magnesium Total Bilirubin AST ALT Alkaline Phosphatase Total Protein Albumin Globulin Albumin/Globulin Ratio Ur Random Sodium Ur Random Potassium Ur Random Chloride Blood Type A Positive Antibody Screen NEGATIVE Crossmatch See Detail Blood Bank Wristband ID Yes Blood Bank Comment FFP Ready 06/21/24 06/21/24 06/21/24 18:33 20:51 22:00 WBC RBC Hgb Hct MCV MCH MCHC RDW Std Deviation Plt Count Neut % (Auto) Lymph % (Auto) Forrest % (Auto) Eos % (Auto) Baso % (Auto) Neut # (Auto) Lymph # (Auto) Forrest # (Auto) Eos # (Auto) Baso # (Auto) Immature Gran # (Auto) Absolute Nucleated RBC Immature Gran % Nucleated RBC % PT INR Puncture Site Arterial Line Arterial Line ABG pH 7.21 L 7.22 L ABG pCO2 35 38 ABG pO2 144 H D 85 D ABG HCO3 14 L 15 L ABG O2 Saturation 99 H 96 ABG Base Excess -13 L -12 L FiO2 30 30 Sodium Potassium Chloride Carbon Dioxide Anion Gap BUN Creatinine Estim Creat Clear Calc eGFR BUN/Creatinine Ratio Glucose Calculated Osmolality Calcium Corrected Calcium Phosphorus Magnesium Total Bilirubin AST ALT Alkaline Phosphatase Total Protein Albumin Globulin Albumin/Globulin Ratio Ur Random Sodium 22.8 Ur Random Potassium 55 Ur Random Chloride 43.6 L Blood Type Antibody Screen Crosstntch Blood Bank [facility] Blood Bank Comment 06/21/24 06/22/24 06/22/24 22:34 00:39 02:38 WBC RBC Hgb Hct MCV MCH MCHC RDW Std Deviation Plt Count Neut % (Auto) Lymph % (Auto) Forrest % (Auto) Eos % (Auto) Baso % (Auto) Neut # (Auto) Lymph # (Auto) Forrest # (Auto) Eos # (Auto) Baso # (Auto) Immature Gran # (Auto) Absolute Nucleated RBC Immature Gran % Nucleated RBC % PT INR Puncture Site Arterial Line Arterial Line ABG pH 7.21 L 7.33 L D ABG pCO2 38 26 L D ABG pO2 69 L 94 D ABG HCO3 15 L 13 L ABG O2 Saturation 92 99 H ABG Base Excess -12 L -12 L FiO2 30 30 Sodium 139 Potassium 3.6 D Chloride 113 H Carbon Dioxide 15.9 L Anion Gap 10 BUN 36 H Creatinine 1.6 H Estim Creat Clear Calc 30.5 L eGFR 34 L BUN/Creatinine Ratio 23 H Glucose 134 H Calculated Osmolality 287 Calcium 8.6 Corrected Calcium 8.8 Phosphorus 4.4 Magnesium 1.8 Total Bilirubin 0.4 AST 81 H ALT 131 H Alkaline Phosphatase 182 H D Total Protein 5.8 Albumin 3.8 Globulin 2.0 L Albumin/Globulin Ratio 1.9 Ur Random Sodium Ur Random Potassium Ur Random Chloride Blood Type Antibody Screen Crosstntch Blood Bank [facility] Blood Bank Comment 06/22/24 06/22/24 06/22/24 05:08 05:57 07:02 WBC 6.8 D 6.5 RBC 2.18 L 2.14 L Hgb 7.0 L 7.0 L Hct 21.2 L* 20.4 L* MCV 97 95 MCH 32.1 32.7 MCHC 33.0 34.3 RDW Std Deviation 56.9 H 54.3 H Plt Count 114 L D 118 L Neut % (Auto) 86 H 86 H Lymph % (Auto) 5 L 6 L Forrest % (Auto) 9 8 Eos % (Auto) 0 0 Baso % (Auto) 0 0 Neut # (Auto) 5.9 5.6 Lymph # (Auto) 0.3 L 0.4 L Forrest # (Auto) 0.6 0.5 Eos # (Auto) 0.0 0.0 Baso # (Auto) 0.0 0.0 Immature Gran # (Auto) 0.04 H 0.04 H Absolute Nucleated RBC 0.03 H 0.02 H Immature Gran % 1 H 1 H Nucleated RBC % 0 0 PT 28.5 H D INR 2.8 H Puncture Site Arterial Line ABG pH 7.36 ABG pCO2 26 L ABG pO2 84 ABG HCO3 15 L ABG O2 Saturation 98 ABG Base Excess -10 L FiO2 30 Sodium 139 Potassium 3.2 L Chloride 114 H Carbon Dioxide 13.5 L* Anion Gap 12 BUN 32 H Creatinine 1.5 H Estim Creat Clear Calc 32.3 L eGFR 37 L BUN/Creatinine Ratio 21 H Glucose 128 H Calculated Osmolality 286 Calcium 8.4 Corrected Calcium 8.8 Phosphorus Magnesium Total Bilirubin 0.4 AST 77 H ALT 120 H Alkaline Phosphatase 171 H Total Protein 5.5 L Albumin 3.5 Globulin 2.0 L Albumin/Globulin Ratio 1.8 Ur Random Sodium Ur Random Potassium Ur Random Chloride Blood Type Antibody Screen Crossmatch Blood Bank Wristband ID Blood Bank Comment Assessment & Plan Additional Assessment Additional Assessment: In brief this is a 68yo F admitted to the ICU s/p arrest a/p [employer] Acute encephalopathy- 2/2 cardiac arrest and prob hypoxic brain injury. -Head CT negative for any acute changes -EEG ordered and official read pending -Will allow 72 hours for further prognostication CV s/p cardiac arrest- will place pt on TTM with goal 36c, avoid hyperthermia shock-now resolved HFrEF- s/p ICD, BNP noted to be elevated, -Started on diuretics -Maintain urinary output above 75 cc an hour -Device interrogated by cardiology with no significant arrhythmia noted Pulmonary HTN- noted on prior echo Resp Acute Resp failure- s/p intubation and on MV, CXR noted with fluffy infiltrates, ABG noted with resp acidosis and vent changes made. will repeat ABG to further eval. vent bundle -Vent changes made -ABG today is improved Aspiration- likely occurred during down time, on abx for further coverage Pulmonary edema-on Lasix Respiratory acidosis- Ve increased on vent and will recheck ABG -Repeat ABG today looks improved Renal AMNA- likely due to hypotension, marsh in place, monitor UOP -Creatinine up to 1.5 today however continues with good urinary output -Creatinine appears to plateaued HypoNa-resolved Hyperchloremic metabolic acidosis-avoid NS, compensating with ventilator -Slight drop in bicarb today -Will repeat labs -pH is compensated Hypokalemia-replete IV GI Transaminitis- fu on repeat CMP in AM -Likely due to ischemic insult -Trending back down GI proph- PPI ? GIB- reported as hemoccult pos with black stools therefore started on PPI, will recheck h/h Endo DM- SSI Heme Leukocytosis- likely reactive in nature -Trending down today Anemia-drop in hemoglobin to 7 -No active bleeding noted at this time -Will repeat CBC in the afternoon Thrombocytopenia-this is new today, question sepsis versus DIC versus drug- related -Will obtain a DIC panel Coagulopathy-given additional FFP yesterday total of 2 units of FFP given and INR is still 2.8 today -Has received vitamin K -Has received TXA DVT proph- SCD for now ID on abx case d/w ICU team, overnight team and cardiology Discussed with family labs, imaging, records reviewed ~60ccmin required for eval, exam, review, intervention, discussion and formulation of POC for this critically ill pt with acute resp failure and shock at high risk for further and ongoing decompensation. Provider Notation Provider Notation: Although this document has been carefully reviewed, there may still be some phonetic and other typographical errors. These errors are purely grammatical due to imperfections in the software program and should not be construed in any way to compromise the substance of the patient's medical care during this visit. Thank you for the opportunity and privilege in assisting you with this patient's care and management.
[2024-06-22 14:23] LABS: Basophils % (Auto) 0 % (0-2.5); Eosinophils % (Auto) 0 % (0-10); Hematocrit 21.7 % (36.0-46.0); Immature Granulocytes % (Auto) 1 % (0-0); Immature Granulocytes Auto 0.05 Thou/mm3 (0.00-0.00); Lymphocytes # (Auto) 0.2 Thou/mm3 (1.0-4.8); Lymphocytes % (Auto) 3 % (10-50); Mean Corpuscular HGB Conc 33.2 g/dl (31.0-37.0); Mean Corpuscular Volume 96 fL (80-100); Monocytes # (Auto) 0.6 Thou/mm3 (0.0-0.8); Monocytes % (Auto) 7 % (0-12); Neutrophils # (Auto) 7.6 Thou/mm3 (1.8-7.7); Neutrophils % (Auto) 90 % (37-80); Nucleated Red Blood Cell # 0.02 Thou/mm3 (0.00-0.00); Nucleated Red Blood Cell % 0 /100 WBC (0); Platelet Count 134 Thou/mm3 (140-440); Red Blood Count 2.25 Miln/mm3 (4.00-5.20); White Blood Count 8.5 Thou/mm3 (3.6-11.0)
[2024-06-22 14:26] LABS: Hemoglobin 7.2 g/dL (12.0-16.0)
[2024-06-22 14:35] LABS: D-Dimer 1170 ng/mL (<600)
[2024-06-22] MEDS: PROPOFOL 1,000 MG IVPB 1,000 MG/100 ML VIAL 2.178 MG IV (14:45)
[2024-06-22 14:47] LABS: Fibrinogen 563 mg/dL (175-375); INR 2.3 (0.9-1.3); Prothrombin Time 23.3 Seconds (9.0-12.2)
[2024-06-22] MEDS: LORazepam 2 MG/ML VIAL IVP (22:25)
--- NOTE | 2024-06-22 22:48 | ESPR_ITS ---
RE: CYNTHIA PABON : 1955 DATE OF SERVICE: 06/22/2024 ROOM: 255. The patient is a 68-year-old unfortunate lady with history of ischemic/nonischemic cardiomyopathy, admitted to the hospital with [id number] cardiac arrest resuscitation with hypoxic encephalopathy. Remains in critical condition. Vasopressors are discontinued. ICD analysis showed no evidence of VT, VF. No cardiac events, suggesting that the patient had a pulseless electrical rhythm, PEA arrest, requiring prolonged CPR. Prognosis is poor. She is still not improving significantly. PHYSICAL EXAMINATION: General: She is intubated on mechanical ventilation, critically ill, not responding to painful stimuli Vital Signs: Blood pressure 140/60; pulse rate is 100; respirations, on ventilator; temperature 99. Neck: Supple. Lungs: Decreased breath sounds. Heart: S1, S2 regular. Abdomen: Thin and soft. Extremities: Mild edema. Genitourinary and Rectal: Not performed. Neurologic: Hypoxic encephalopathy, nonresponsive. LABORATORY DATA: Hemoglobin 7.2, stable. Chemistry panel showed she is still acidotic, CO2 of 13, BUN and creatinine 32 and 1.5. IMPRESSION/ASSESSMENT: 1. Status post [id number]-[id number] cardiac arrest, pulseless electrical activity arrest. 2. Ischemic/nonischemic cardiomyopathy, history of systolic heart failure as well. 3. Hypoxic encephalopathy, status post cardiopulmonary arrest. RECOMMENDATIONS: Prognosis is poor. Condition remains critical. I had an extensive discussion with the family, spent more than 45 minutes of critical care time, explaining the family as well as assessing the patient and interrogation of the device. The patient is not expected to survive based on 48 hours no improvement from a neurologic point of view. DT: 20:49:16 TT: 21:34:00 Ref: [id number] - TID: [id number] [facility]
[2024-06-23] VITALS (45 sets, daily range): BP systolic 84–232; BP diastolic 42–110; PULSE 88–127; RESP 0–60; TEMP 36.8–37.2; O2SAT 61–99; BMI 27.7
[2024-06-23] MEDS: PROPOFOL 1,000 MG IVPB 1,000 MG/100 ML VIAL 21.78 MG IV (00:50)
[2024-06-23 04:24] LABS: Base Excess -8 (-3-3); HCO3 16 mEq/L (20-26); Inspired Oxygen, FIO2 30 %; O2 Saturation 96 % (91-98); PCO2 27 mmHg (32.0-48.0); PO2 77 mmHg (83-108); pH, Arterial 7.39 (7.35-7.45)
[2024-06-23 04:33] LABS: Puncture Site Arterial Line
[2024-06-23 06:00] LABS: Basophils % (Auto) 0 % (0-2.5); Eosinophils % (Auto) 0 % (0-10); Hematocrit 21.2 % (36.0-46.0); INR 1.5 (0.9-1.3); Immature Granulocytes % (Auto) 1 % (0-0); Immature Granulocytes Auto 0.06 Thou/mm3 (0.00-0.00); Lymphocytes # (Auto) 0.5 Thou/mm3 (1.0-4.8); Lymphocytes % (Auto) 6 % (10-50); Mean Corpuscular HGB Conc 33.5 g/dl (31.0-37.0); Mean Corpuscular Hemoglobin 32.1 pg (25.0-35.0); Mean Corpuscular Volume 96 fL (80-100); Monocytes # (Auto) 0.7 Thou/mm3 (0.0-0.8); Monocytes % (Auto) 9 % (0-12); Neutrophils # (Auto) 6.6 Thou/mm3 (1.8-7.7); Neutrophils % (Auto) 84 % (37-80); Nucleated Red Blood Cell # 0.04 Thou/mm3 (0.00-0.00); Nucleated Red Blood Cell % 1 /100 WBC (0); Platelet Count 143 Thou/mm3 (140-440); Prothrombin Time 16.1 Seconds (9.0-12.2); RDW Standard Deviation 56.1 fL (36.4-46.3); Red Blood Count 2.21 Miln/mm3 (4.00-5.20); White Blood Count 7.9 Thou/mm3 (3.6-11.0)
[2024-06-23 06:02] LABS: Hemoglobin 7.1 g/dL (12.0-16.0)
[2024-06-23 06:38] LABS: Alanine Aminotransferase 81 U/L (10-49); Albumin, Serum 3.6 gm/dL (3.4-4.8); Albumin/Globulin Ratio 1.6 (1.2-2.2); Alkaline Phosphatase 155 U/L (46-116); Anion Gap 10 (7-16); Aspartate Amino Transferase 66 U/L (0-34); BUN/Creatinine Ratio 23 Ratio (12-20); Bilirubin,Total 0.4 mg/dL (0.3-1.2); Blood Urea Nitrogen 34 mg/dL (9-23); Calcium 8.5 mg/dL (8.3-10.6); Calcium (Corrected) 8.8 mg/dL (8.5-10.1); Carbon Dioxide 16.4 mMol/L (20.0-31.0); Chloride 114 mMol/L (98-107); Creatinine (Component) 1.5 mg/dL (0.6-1.3); Globulin 2.2 gm/dL (2.3-3.5); Glucose 110 mg/dL (74-106); Osmolality,Calculated 288 (275-295); Potassium 3.4 mMol/L (3.4-5.1); Sodium 140 mMol/L (136-145); Total Protein 5.8 gm/dL (5.7-8.2); eGFR 37 See Note
[2024-06-23] MEDS: FUROSEMIDE INJ 10 MG/ML 4ML VIAL 40 MG IVP (06:38)
--- NOTE | 2024-06-23 06:40 | XR_ITS ---
Examination: AP chest single view Technique one AP portable semiupright chest single view Exam date and time: June 23, 2024 0552 hrs. Comparison June 22, 2024 Indications: Status post cardiopulmonary arrest, hypoxic pressure trochlear, pneumonia ARDS on earlier chest imaging this week, postintubation, post central line placement, post orogastric tube placement Findings: Extensive bilateral lung opacity again noted Mild enlargement cardiac contour Endotracheal tube tip 2.6 cm above janis Right internal jugular central line tip right atrium Orogastric tube in the stomach No pneumothorax Stable position cardiac leads Prominent osteopenia Impression: No significant change in extensive pneumonia ARDS pattern
[2024-06-23] MEDS: PANTOPRAZOLE INJ 40 MG VIAL IVP (09:50)
[2024-06-23] MEDS: cefTRIAXone/D5w 1gm IV premix 50 ML IV (09:50)
--- NOTE | 2024-06-23 10:23 | EKG_ITS ---
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
[2024-06-23] MEDS: MIDAZOLAM INJ 1 MG/ML VIAL 2 ML 4 MG IV ×2 (10:25→11:51)
[2024-06-23 11:18] LABS: Potassium 3.2 mMol/L (3.4-5.1)
--- NOTE | 2024-06-23 12:00 | PD.RESEVENT ---
Documentation for date of: 06/23/24 Event Note Event Note: Around 12 PM we had a discussion with family members, Dr. Keyes and Dr. Ramirez were present. We discussed patients condition, explained to them poor prognosis and that in the setting of prolonged cardiac arrest irreparable brain damage happened. Earlier in the morning, the patient had an episode of ventricular tachycardia, shock was delivered, rhythm converted to the paced by pacemaker. Family members were made aware that in case her heart were to stop, resuscitation measures may not be successful. They agreed to change the CODE STATUS to DNR. Plan of care discussed with attending Dr. Larios, PGY-[address] Keyes. Cyndy Ramirez MD, PGY 1.
[2024-06-23] MEDS: POTASSIUM CHL 20 mEq IVPB 20 MEQ/100 ML BAG 50 MEQ IV (12:10)
[2024-06-23] MEDS: INSULIN LISPRO (AdmeLOG) 1 UNIT/0.01 ML UNIT SC (12:17)
--- NOTE | 2024-06-23 12:41 | PC.NURSE ---
At 1018 Pt noted to be in ventricular tachycardia. Md Larios at bedside. Patient noted to be having seizure like activity so 4mg Versed IVP was given. Pt sustained ventricular tachycardia, pads were placed and was then shocked with 120J @1024. Pt converted back to paced.
--- NOTE | 2024-06-23 12:47 | PC.NURSE ---
Donor network contacted @ [phone]. [facility] #: [phone] @[phone] Fany from Donor network called back and stated patient is suitable for organ donation @[phone] Donor network was contacted back after residents had a goals of care discussion with family, Rachael from Donor network made aware that family was interested in comfort measures. The call was then transferred Crys, a donor network support analyst who stated that patient was ruled out for organ donation and to call back with NIR.
--- NOTE | 2024-06-23 13:25 | PC.NURSE ---
@ [phone] MD Larios having a family meeting discussing pt's prognosis and family's wishes. Family decided on comfort care measures. Comfort care measures explained to the family. Aerospace Project Manager called to bedside.
--- NOTE | 2024-06-23 13:44 | PC.SS ---
Update: Patient's code status changed to DNR. Possible transition to comfort care.
[2024-06-23] MEDS: LORazepam 2 MG/ML VIAL IVP ×8 (13:48→20:14)
[2024-06-23] MEDS: SCOPOLAMINE 1 MG TDSY TOP (13:49)
--- NOTE | 2024-06-23 14:01 | ESPR_ITS ---
<Statement entered by Johanny Keyes MD - 06/24/24 07:11> Patient was seen and examined by me personally. I have directly supervised and reviewed the above documentation by the team resident and agree with its findings with any exceptions or additional findings as below. Plan of care was discussed with the attending, Dr. Larios. Johanny Keyes, PGY-2 Documentation for date of: 06/23/24 Subjective Subjective Interval history: 06/22/24: Patient was seen and examined bedside in the ICU. Overnight, patient found to have elevated peak pressures noted on ventilator for which patient was started on paralytics and ventilatory settings were adjusted in view of ongoing respiratory acidosis. Noted to be biting the tube with seizure-like activity for which patient was given a dose of lorazepam 2 Mg. In the morning patient was weaned off paralytics and vitals were stable despite being off vasopressors since yesterday. Labs showed drop in hemoglobin from 8.1 to 7 for which CBC was repeated again which showed the same value. INR still elevated with 2.3, APTT is 54. ABG showed pH 7.36, pCO2 26, bicarb 15. Potassium is 3.2 for which 60 mEq of IV potassium was given. Renal function seems to be improving. In view of hemoglobin drop, her repeat hemoglobin is scheduled in the afternoon if the hemoglobin drops further we will plan to do imaging to rule out any internal bleeding. Pending EEG and echo report. Dr. Leary saw the patient and [employer] check did not show any arrhythmias at the time of cardiac arrest. Goals of care and prognosis were explained to the family. 06/23/24: Patient was seen and examined by the bedside. Overnight she had been breathing over the rate set by the ventilator and was having frequent generalized myoclonus that continues in the morning and day. She received lorazepam IV. In the morning at 10:24 AM she had an episode of ventricular tachycardia and cardioverted at 120J, converted back to paced rhythm. Patient's family members came in and ICU team had a conversation about the patient's poor prognosis and irreversible severe brain damage. Family members decided to change CODE status to DNR. Patient had another short episode of ventricular tachycardia at Dr. Larios had a discussion with family members regarding starting transitioning to comfort care and family agreed to start patient on comfort care. Exam Vital Signs Temp Pulse Resp BP Pulse Ox O2 Del Method O2 Flow Rate 98.8 F 111 H 32 H 174/110 H 87 L Mechanical Ventilation 15 06/23/24 12:00 06/23/24 13:31 06/23/24 06:22 06/23/24 13:31 06/23/24 13:31 06/22/24 16:00 06/20/24 11:41 FiO2 30 06/23/24 12:00 Narrative Exam Gen: Well-developed and well-nourished. GCS 4. HEENT: NCAT, pupils equal,sluggishly reactive to light, upwards gaze fixation, MMM, anicteric conjunctivae. CVS: normal S1 and S2. RRR. No M/R/G. Resp: CTA B/L. No rhonchi, rales, crackles or wheezing. Abd: soft, non-tender, non-distended. BS+ in all 4 quadrants. MSK: Good ROM in BUE & BLE. Mild ankle edema , no rash. Extremities are cold to the touch, poor capillary refill. Neuro: Alert and oriented x0. pupils equal, reactive to light, upward gaze fixation. Bilateral facial and extremities muscles myoclonic jerks with forced eye opening. Babinski positive bilateral. Psych: impossible to assess due to condition. Objective Labs 06/23/24 05:35 06/23/24 10:45 Labs: Laboratory Results - last 24 hr 06/20/24 06/22/24 06/23/24 12:27 14:05 04:12 WBC 8.5 RBC 2.25 L Hgb 7.2 L Hct 21.7 L* MCV 96 MCH 32.0 MCHC 33.2 RDW Std Deviation 57.0 H Plt Count 134 L Neut % (Auto) 90 H Lymph % (Auto) 3 L Real % (Auto) 7 Eos % (Auto) 0 Baso % (Auto) 0 Neut # (Auto) 7.6 Lymph # (Auto) 0.2 L Real # (Auto) 0.6 Eos # (Auto) 0.0 Baso # (Auto) 0.0 Immature Gran # (Auto) 0.05 H Absolute Nucleated RBC 0.02 H Immature Gran % 1 H Nucleated RBC % 0 PT 23.3 H D INR 2.3 H APTT 54.0 H Fibrinogen 563 H D-Dimer 1170 H Puncture Site Arterial Line ABG pH 7.39 ABG pCO2 27 L ABG pO2 77 L ABG HCO3 16 L ABG O2 Saturation 96 ABG Base Excess -8 L FiO2 30 Sodium Potassium Chloride Carbon Dioxide Anion Gap BUN Creatinine Estim Creat Clear Calc eGFR BUN/Creatinine Ratio Glucose Calculated Osmolality Calcium Corrected Calcium Total Bilirubin AST ALT Alkaline Phosphatase Total Protein Albumin Globulin Albumin/Globulin Ratio Crossmatch See Detail 06/23/24 06/23/24 05:35 10:45 WBC 7.9 RBC 2.21 L Hgb 7.1 L Hct 21.2 L* MCV 96 MCH 32.1 MCHC 33.5 RDW Std Deviation 56.1 H Plt Count 143 Neut % (Auto) 84 H Lymph % (Auto) 6 L Real % (Auto) 9 Eos % (Auto) 0 Baso % (Auto) 0 Neut # (Auto) 6.6 Lymph # (Auto) 0.5 L Real # (Auto) 0.7 Eos # (Auto) 0.0 Baso # (Auto) 0.0 Immature Gran # (Auto) 0.06 H Absolute Nucleated RBC 0.04 H Immature Gran % 1 H Nucleated RBC % 1 H PT 16.1 H D INR 1.5 H APTT Fibrinogen D-Dimer Puncture Site ABG pH ABG pCO2 ABG pO2 ABG HCO3 ABG O2 Saturation ABG Base Excess FiO2 Sodium 140 Potassium 3.4 3.2 L Chloride 114 H Carbon Dioxide 16.4 L Anion Gap 10 BUN 34 H Creatinine 1.5 H Estim Creat Clear Calc 32.0 L eGFR 37 L BUN/Creatinine Ratio 23 H Glucose 110 H Calculated Osmolality 288 Calcium 8.5 Corrected Calcium 8.8 Total Bilirubin 0.4 AST 66 H ALT 81 H Alkaline Phosphatase 155 H Total Protein 5.8 Albumin 3.6 Globulin 2.2 L Albumin/Globulin Ratio 1.6 Crossmatch ABG Interpretation ABG results: 06/20/24 06/20/24 06/20/24 12:44 13:58 18:24 ABG pH 6.91 L* 7.06 L* D 7.22 L D ABG pCO2 61 H 53 H 41 D ABG pO2 115 H 159 H D 66 L D ABG HCO3 12 L 15 L 17 L ABG O2 Saturation 96 99 H 92 ABG Base Excess -19 L -15 L -11 L VBG pH VBG pCO2 VBG pO2 VBG Base Excess 11/06/21/24 06/21/24 22:03 00:10 04:06 ABG pH 7.14 L* 7.24 L D 7.29 L ABG pCO2 45 33 D 30 L ABG pO2 95 D 116 H D 97 ABG HCO3 15 L 14 L 14 L ABG O2 Saturation 97 99 H 99 H ABG Base Excess -13 L -12 L -11 L VBG pH VBG pCO2 VBG pO2 VBG Base Excess 06/21/24 06/21/24 06/21/24 09:48 13:15 18:33 ABG pH 7.23 L 7.21 L ABG pCO2 36 35 ABG pO2 93 144 H D ABG HCO3 15 L 14 L ABG O2 Saturation 97 99 H ABG Base Excess -11 L -13 L VBG pH 7.27 L VBG pCO2 35 L VBG pO2 37 VBG Base Excess -10 L 06/21/24 06/21/24 06/22/24 20:51 22:34 00:39 ABG pH 7.22 L 7.21 L 7.33 L D ABG pCO2 38 38 26 L D ABG pO2 85 D 69 L 94 D ABG HCO3 15 L 15 L 13 L ABG O2 Saturation 96 92 99 H ABG Base Excess -12 L -12 L -12 L VBG pH VBG pCO2 VBG pO2 VBG Base Excess 06/22/24 06/23/24 05:08 04:12 ABG pH 7.36 7.39 ABG pCO2 26 L 27 L ABG pO2 84 77 L ABG HCO3 15 L 16 L ABG O2 Saturation 98 96 ABG Base Excess -10 L -8 L VBG pH VBG pCO2 VBG pO2 VBG Base Excess Quality Measures Quality Measures VTE prophylaxis (on hold ) Advance care planning discussed with:: child Assessment & Plan Assessment Current Active Medications: Generic Name Dose Route Start Last Admin Trade Name Freq PRN Reason Stop Dose Admin Artificial Tears 1 drop 06/23/24 13:29 Artificial Tears 225 Drop/15 Ml Btl BOTH EYES 07/23/24 13:28 Q4HR PRN Dry eyes Fentanyl Citrate 2,500 mcg in 250 mls @ 15 mls/hr 06/22/24 15:34 06/23/24 06:00 Sublimaze Inj 2,500 Mcg/250 Ml Bag IV 06/27/24 01:21 0 mcg/hr .[id number] PRN 0 mls/hr PER PROTOCOL Titration Protocol 150 MCG/HR Lorazepam 2 mg 06/23/24 13:29 06/23/24 13:48 Lorazepam 2 Mg/Ml Vial IVP 06/25/24 22:03 2 mg Q15M PRN Administration AGITATION Scopolamine 1 mg 06/23/24 13:30 06/23/24 13:49 Scopolamine 1 Mg Tdsy TOP 07/23/24 13:29 1 mg Q3D NATHAN Administration Plan The patient is a 68-year-old female with a previous medical history of HFpEF EF 40-45% 01/27, nonischemic cardiomyopathy, GLOBAL PROGRAM DIRECTOR-D placement, A-fib on warfarin (chart review), hypertension, anemia who was brought to the ED by EMS in cardiac arrest. Exact time of the cardiac arrest is unknown, most of the history was received per chart review, she was seated on the toilet and found slumped over. She arrived to the ED at 11: 41, on the way she received epinephrine 1 mg 3 times, atropine and was intubated. After 4 minutes of resuscitation measures, ROSC was obtained. Her blood pressure was low and she was started on epinephrine drip, she was also started on propofol and fentanyl for sedation. Patient was admitted to the ICU for shock and post-cardiac arrest management and treatment. NEURO # Acute encephalopathy Most likely due to hypoxic brain injury and prolonged cardiac arrest. GCS 3. Head CT (06/20): No signs of ischemic stroke, bleeding, fractures, 3 cm meningioma which is unlikely the cause of the encephalopathy. U tox was positive for benzodiazepines. Sedation was stopped for sedation holiday on 06/21/2024, neurological status remains the same. Plan: ?Patient is on comfort care. -Lorazepam 2 mg as needed is added in view of suspected seizure secondary to hypoxic brain injury. - Fentanyl drip at 150 mcg/h CARDIO # Shock due to unknown reasons, resolved #Status post cardic arrest 06/20/24 # History of HFrEF [40 to 45% EF] # History of A-fib s/p AICD-on warfarin #Episodes of ventricular tachycardia Most likely cardiogenic. NICOM monitoring did reveal that the patient is fluid responsive, SVI is normal, TPR is significantly increased with pressors possibly contributing to that. Additionally, Patient has a history of HFpEF, GLOBAL PROGRAM DIRECTOR-D placement, nonischemic cardiomyopathy. Family reported that in previous days she was having shortness of breath and chest discomfort, which she previously had during CHF exacerbations. In the ED GLOBAL PROGRAM DIRECTOR-D was pacing. Troponin I was elevated, but could be elevated after CPR. Dr. Leary is following the patient, [employer] was checked and showed no arrhythmias, likely pulseless electrical activity causing the cardiac arrest. Differentials include: 1. Septic. Patient has acute hypoxic respiratory failure and chest x-ray showed bilateral pneumonia. TPR is high and patient is not fluid responsive. 2. Hypovolemic. Patient has no signs of active bleeding which could be the reason of her condition. She is not fluid responsive. 3. Neurogenic. Unlikely, due to absence of trauma and stroke on the CT. 4. Obstructive. Patient has acute hypoxia, but CXR negative for pneumothorax, no signs of DVT, Wells score 0. Unlikely to be the cause of shock. Plan: - Patient is on comfort care. PULM # Acute hypoxic respiratory failure #Bilateral pneumonia #Respiratory acidosis # Possible aspiration Previous chest x-ray 06/18 showed mild CHF. Chest x-ray on 06/20 showed bilateral pneumonia. Also there are signs of possible pulmonary edema. Chest x-ray changes could also be attributed to aspiration. Ventilation settings were changed, RR was increased to 26 and then to 30. Patient is allergic to ampicillin, therefore Zosyn was not started. -On 06/21/2024 around 7 PM patient was found to have elevated plateau and peak pressures for which patient was paralyzed with cis atracurium and respiratory rate was increased to 32 following which the plateau and peak pressures came down to normal limits. -Cisatracurium infusion was stopped on 06/22/2024 around 7 AM. -ABG done today showed pH 7.36, pCO2 26, bicarb 15 on VC/AC mode with FiO2 30%, PEEP 5, tidal volume 420 mL. Plan: - Patient is on comfort care - Patient will be extubated after the last rites are read to her. GI # History of GI bleed -In the ED, per rectal examination showed black tarry stools and later tested guaiac positive. -Received a pack of PRBC on the day of admission. Plan: ? Patient is on comfort care ? Scopolamine patch NEPHRO # AMNA, improving #Metabolic acidosis with respiratory acidosis Most likely due to hypoxic injury in the setting of cardiac arrest and acute hypoxic respiratory failure. Plan: ? Patient is on comfort care URO #No active problems HEME # Chronic anemia #Coagulopathy Patient has a history of chronic anemia and receiving blood transfusions. After arterial line placement, the site was oozing blood. After applying pressure for 30 minutes bleeding did not resolve. After more time and tranexamic acid 1g, FFP transfusion it stopped. DIC panel negative on 06/20/2024. Plan: ?Patient is on comfort care ENDO #No active problems ID #Bilateral pneumonia #Possible septic shock Plan: ?Patient is on comfort care MSK #No active problems SKIN #No active problems DVT prophylaxis: none due to hypocoagulation GI prophylaxis: none Diet: NG tube feeds stopped Fuentes: Present Lines: peripheral, central, arterial Antibiotics: none CODE STATUS: DNR Reason for ICU care: shock due to unknown reasons and status post cardiac arrest. Patient is on comfort care. Plan of care discussed with attending Dr. Larios and senior resident physician Dr. Wali Ramirez MD, PGY 1.
--- NOTE | 2024-06-23 15:35 | ESPR_ITS ---
Documentation for date of: 06/23/24 Subjective Subjective Interval history: This is a 68yo F who was brought to the ER s/p cardiac arrest. Apparently she was in the bathroom earlier today and had a syncopal event. EMS was called and on arrival she was found to be pulseless and CPR was initiated. ROSC was achieved after 3 rounds of epi. During transit pulse was lost once more and CPR resumed. Pt was undergoing CPR on arrival to the ER. ROSC was achieved after arrival and pt felt to have had a total downtime of ~20min. Pts initial rhythm is unknown. In the ER labs were obtained after ROSC as well as CXR. CXR shows diffuse fluffy infiltrates and labs are significant for severe acidosis. Rectal exam done in the ER showed a pos hemoccult. pt seen in ER room 2. Per family pt has has SOB for the last 2 days. She visited her PCP and had labs and a CXR done. Has had changes to her cardiac regimen over the last 2 months. This AM very SOB, went to the bathroom and called out for help then collapsed. 06/21-overnight has had a decrease in her vasopressor requirements. Did have occasional episodes with desatting on the vent. ABGs were followed and I was called overnight on several occasions for additional ventilator management. She continues to have ongoing myoclonic jerks. She has had an adequate urinary output. She remains afebrile 06/22-overnight patient developed worsening respiratory acidosis, several vent changes were made. The decision was made to paralyze her at around midnight. Patient required Levophed briefly for about an hour overnight however this morning is off of vasopressors. She was given Lasix with good urinary output. There has been no change in her mental status 06/23- no acute overnight events, this AM the pt developed VT x3 -> initial event was defibrillated after which family decided on change of CODE STATUS. The patient was made DNR. Critical Care Note Critical care time (min.): 38 Exam Vital Signs Temp Pulse Resp BP Pulse Ox O2 Del Method O2 Flow Rate 98.8 F 96 32 H 134/56 H 98 Mechanical Ventilation 15 06/23/24 12:00 06/23/24 14:25 06/23/24 06:22 06/23/24 14:25 06/23/24 14:25 06/22/24 16:00 06/20/24 11:41 FiO2 30 06/23/24 14:25 Narrative Exam [id number], myoclonic jerks present, obese body habitus , GCS 5 T (M2, E2, V1) HEENT-normocephalic, atraumatic, sclera icteric, pupils small and sluggish with upward gaze deviation, ET tube and OG tube in place Chest-coarse breath sounds bilaterally, expiratory wheezes auscultated, heart regular rhythmic, no bruits or murmurs auscultated, no increased work of breathing Abdomen-obese, soft, nontender, bowel sounds present Extremities-minimal edema, pulses palpable, no clubbing or cyanosis, no mottling, no withdrawal, myoclonic jerks Vent AC/VC Physical Exam Completion Physical Exam Complete?: Yes Objective - [employer] Labs 06/23/24 05:35 06/23/24 10:45 Labs: Laboratory Results - last 24 hr 06/20/24 06/23/24 06/23/24 12:27 04:12 05:35 WBC 7.9 RBC 2.21 L Hgb 7.1 L Hct 21.2 L* MCV 96 MCH 32.1 MCHC 33.5 RDW Std Deviation 56.1 H Plt Count 143 Neut % (Auto) 84 H Lymph % (Auto) 6 L [place] % (Auto) 9 Eos % (Auto) 0 Baso % (Auto) 0 Neut # (Auto) 6.6 Lymph # (Auto) 0.5 L [place] # (Auto) 0.7 Eos # (Auto) 0.0 Baso # (Auto) 0.0 Immature Gran # (Auto) 0.06 H Absolute Nucleated RBC 0.04 H Immature Gran % 1 H Nucleated RBC % 1 H PT 16.1 H D INR 1.5 H Puncture Site Arterial Line ABG pH 7.39 ABG pCO2 27 L ABG pO2 77 L ABG HCO3 16 L ABG O2 Saturation 96 ABG Base Excess -8 L FiO2 30 Sodium 140 Potassium 3.4 Chloride 114 H Carbon Dioxide 16.4 L Anion Gap 10 BUN 34 H Creatinine 1.5 H Estim Creat Clear Calc 32.0 L eGFR 37 L BUN/Creatinine Ratio 23 H Glucose 110 H Calculated Osmolality 288 Calcium 8.5 Corrected Calcium 8.8 Total Bilirubin 0.4 AST 66 H ALT 81 H Alkaline Phosphatase 155 H Total Protein 5.8 Albumin 3.6 Globulin 2.2 L Albumin/Globulin Ratio 1.6 Crossmatch See Detail 06/23/24 10:45 WBC RBC Hgb Hct MCV MCH MCHC RDW Std Deviation Plt Count Neut % (Auto) Lymph % (Auto) [place] % (Auto) Eos % (Auto) Baso % (Auto) Neut # (Auto) Lymph # (Auto) [place] # (Auto) Eos # (Auto) Baso # (Auto) Immature Gran # (Auto) Absolute Nucleated RBC Immature Gran % Nucleated RBC % PT INR Puncture Site ABG pH ABG pCO2 ABG pO2 ABG HCO3 ABG O2 Saturation ABG Base Excess FiO2 Sodium Potassium 3.2 L Chloride Carbon Dioxide Anion Gap BUN Creatinine Estim Creat Clear Calc eGFR BUN/Creatinine Ratio Glucose Calculated Osmolality Calcium Corrected Calcium Total Bilirubin AST ALT Alkaline Phosphatase Total Protein Albumin Globulin Albumin/Globulin Ratio Crossmatch Assessment & Plan Additional Assessment Additional Assessment: In brief this is a 68yo F admitted to the ICU s/p 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 -Head CT negative for any acute changes -EEG ordered and official read pending -Patient has had no neurological recovery CV s/p cardiac arrest- will place pt on TTM with goal 36c, avoid hyperthermia shock-now resolved HFrEF- s/p ICD, BNP noted to be elevated, -Started on diuretics -Maintain urinary output above 75 cc an hour -Device interrogated by cardiology with no significant arrhythmia noted Pulmonary HTN- noted on prior echo VT-patient had 3 episodes of VT today. She was defibrillated for the first 1 however patient's family changed her code status to DNR Resp Acute Resp failure- s/p intubation and on MV, CXR noted with fluffy infiltrates, ABG noted with resp acidosis and vent changes made. will repeat ABG to further eval. vent bundle -Vent changes made -ABG today is improved Aspiration- likely occurred during down time, on abx for further coverage Pulmonary edema-on Lasix Respiratory acidosis- Ve increased on vent and will recheck ABG -Repeat ABG today looks improved Renal AMNA- likely due to hypotension, marsh in place, monitor UOP -Creatinine up to 1.5 today however continues with good urinary output -Creatinine appears to plateaued - no change HypoNa-resolved Hyperchloremic metabolic acidosis-avoid NS, compensating with ventilator -Slight drop in bicarb today -Will repeat labs -pH is compensated Hypokalemia-replete IV - remains low today GI Transaminitis- fu on repeat CMP in AM -Likely due to ischemic insult -Trending back down GI proph- PPI ? GIB- reported as hemoccult pos with black stools therefore started on PPI, will recheck h/h Endo DM- SSI Heme Leukocytosis- likely reactive in nature -Trending down today Anemia-drop in hemoglobin to 7 - remains stable Thrombocytopenia-this is new today, question sepsis versus DIC versus drug- related -Will obtain a DIC panel Coagulopathy-given additional FFP yesterday total of 2 units of FFP given and INR is still 2.8 today -Has received vitamin K -Has received TXA DVT proph- SCD for now ID on abx d/w mult family members for GOC discussion. At this point in time she has had no neurological recovery. The family would like to transition to DNR/dNI and comfort care. They have requested a vp delivery. pt will be placed on a fentanyl or morphine gtt with prn ativan and extubated. case d/w ICU team Discussed with family labs, imaging, records reviewed ~38ccmin required for eval, exam, review, intervention, discussion and formulation of POC for this critically ill pt with acute resp failure and shock at high risk for further and ongoing decompensation. Provider Notation Provider Notation: Although this document has been carefully reviewed, there may still be some phonetic and other typographical errors. These errors are purely grammatical due to imperfections in the software program and should not be construed in any way to compromise the substance of the patient's medical care during this visit. Thank you for the opportunity and privilege in assisting you with this patient's care and management.
[2024-06-23] MEDS: fentaNYL 2,500 MCG/250 ML BAG 2,500 MCG/250 ML BAG 7.5 MCG IV (16:08)
--- NOTE | 2024-06-23 16:24 | PC.NURSE ---
[facility] called to request a center customer service associate for pt's last rights per family's request
--- NOTE | 2024-06-23 17:12 | PC.NURSE ---
Deacon Ernst at bedside reading pt's last rights with family at bedside
--- NOTE | 2024-06-23 17:20 | PC.NURSE ---
Father Ace at bedside
--- NOTE | 2024-06-23 17:43 | ESPR_ITS ---
<Statement entered by Agapito Leary MD - 06/24/24 12:21> I personally evaluated the patient in the intensive in the intensive care unit along with resident physician PGY 2 Dr. Vega. The patient not showing any improvement neurologically has severe hypoxic encephalopathy following CPR. Family made DNR status and to comfort measures only patient extubated. Agree with the treatment plan recommendation as formulated by PGY 2 resident physician Documentation for date of: 06/23/24 Subjective Subjective Interval history: The patient is a 68-year-old female, very well known to me, who has longstanding history of nonischemic cardiomyopathy, chronic systolic and diastolic heart failure, ejection fraction around 40%, status post DIAMOND ASSORTER defibrillator implantation, paroxysmal atrial fibrillation, history of cholecystitis who underwent cholecystectomy in January 2024, was apparently supposed to see me in my office today, was not doing well for last 2 or 3 days and apparently collapsed in the bathroom and 911 was called. Apparently CPR was initiated, the patient had no pulse. ROSC was achieved after 3 rounds of epinephrine and CPR was performed, but there is no evidence of any shocks delivered by defibrillator. The patient has AICD internal defibrillator. She had another episode of cardiac arrest again and pulseless rhythm, underwent CPR, another round of epinephrine was given on the way to the hospital, downtime of about 20 minutes or so, the patient came to the hospital, was given vasopressors. Initial assessment showed bilateral chest bilateral alveolar interstitial infiltrates, possibly ARDS with pulmonary edema versus pneumonia. The patient is hypotensive requiring multiple vasopressors, now shows 100% paced rhythm. Currently on multiple vasopressors including IV antibiotics. 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 Patient is also having history of A-fib on warfarin.Initial labs showed metabolic acidosis, hemoglobin 8.4, white count 19.3. Chemistry panel showed metabolic acidosis. Initial potassium was 5, sodium 134, CO2 12, creatinine 1.4, blood glucose 300. Initial troponin I was 0.097. BNP 550. Lactic acidosis down trended to 2. Elevated liver enzymes. Chest x-ray showed extensive bilateral alveolar interstitial infiltrates, bilateral pneumonia and heart failure. Head CT was negative. ABGs showed pH 6.9, pCO2 60, pO2 110. Patient is admitted in ICU postcardiac arrest and CPR for further management. 06/21/2024: Patient was seen and examined in the ICU. Patient continues to remain intubated and ventilated. Patient is currently requiring low-dose of epinephrine and sedated with propofol and fentanyl. Eyes are in upward gaze. Morning labs revealed improvement in white count, stable hemoglobin at 8.1. Coagulopathy with elevated INR 4.5. Elevated D-dimers more than 3820. ABGs revealed pH 7.23, pCO2 36, pO2 93 and bicarb 15. VBG showed pH 7.27, pCO2 35. FiO2 40%. Chemistry panel showed metabolic acidosis with bicarb 14.4, BUN 33 creatinine 1.5. Blood glucose 186. Elevated liver enzymes. Troponin I 0.102. Morning chest x-ray showed worsening bilateral pneumonia and pulmonary edema. VBG in the morning showed increased oxygen extraction. ICU team plan to do EEG to evaluate neurological functions. Patient most likely had hypoxic brain injury due to downtime more than 20 minutes therefore prognosis remains poor. Will follow-up on ICD interrogation to monitor any heart arrhythmias such as VT, V-fib during CPR or prior to arrival to hospital. Recommended to continue intubation and current ventilation settings. Follow-up on EEG and echocardiogram. Continue IV vasopressors and antibiotic therapy to treat shock. Continue Holding home medications including carvedilol, Entresto, Lasix and warfarin. Cardiology will follow the case closely. 06/23/2024: Patient was seen and examined in the ICU. Patient continues remain intubated and ventilated. Patient had 3 episodes of V. tach and defibrilator didnt shocked her on any episode. Goals of care discussion was performed by ICU care team and patient's CODE STATUS was changed to DNR and transition to comfort care given poor neurological improvement. All labs and orders were reviewed. Exam Vital Signs Temp Pulse Resp BP Pulse Ox O2 Del Method O2 Flow Rate 98.9 F 94 32 H 124/64 98 Mechanical Ventilation 15 06/23/24 16:00 06/23/24 16:30 06/23/24 06:22 06/23/24 16:30 06/23/24 16:30 06/22/24 16:00 06/20/24 11:41 FiO2 30 06/23/24 16:00 Narrative Exam Gen: Patient is extubated. HEENT: NCAT, pupils equal, constricted 1mm, minimally reactive to light, upwards gaze fixation, MMM, anicteric conjunctivae. Right IJV. CVS: 100% paced heart rate. S1 and S2. RRR. No M/R/G. Resp: CTA B/L. No rhonchi, rales, crackles or wheezing. Abd: soft, non-tender, non-distended. BS+ in all 4 quadrants. MSK: Good ROM in BUE & BLE. Mild ankle edema , no rash. Extremities are cold to the touch, poor capillary refill. Arterial line placed. Neuro: Alert and oriented x0. pupils equal, constricted 1mm, minimally reactive to light, upwards gaze fixation, upward gaze fixation. Bilateral facial and extremities muscles myoclonic jerks with forced eye opening. Babinski negative bilateral. Psych: Poor neurological recovery Objective Labs 06/23/24 05:35 06/23/24 10:45 Labs: Laboratory Results - last 24 hr 06/20/24 06/23/24 06/23/24 12:27 04:12 05:35 WBC 7.9 RBC 2.21 L Hgb 7.1 L Hct 21.2 L* MCV 96 MCH 32.1 MCHC 33.5 RDW Std Deviation 56.1 H Plt Count 143 Neut % (Auto) 84 H Lymph % (Auto) 6 L Cloud % (Auto) 9 Eos % (Auto) 0 Baso % (Auto) 0 Neut # (Auto) 6.6 Lymph # (Auto) 0.5 L Cloud # (Auto) 0.7 Eos # (Auto) 0.0 Baso # (Auto) 0.0 Immature Gran # (Auto) 0.06 H Absolute Nucleated RBC 0.04 H Immature Gran % 1 H Nucleated RBC % 1 H PT 16.1 H D INR 1.5 H Puncture Site Arterial Line ABG pH 7.39 ABG pCO2 27 L ABG pO2 77 L ABG HCO3 16 L ABG O2 Saturation 96 ABG Base Excess -8 L FiO2 30 Sodium 140 Potassium 3.4 Chloride 114 H Carbon Dioxide 16.4 L Anion Gap 10 BUN 34 H Creatinine 1.5 H Estim Creat Clear Calc 32.0 L eGFR 37 L BUN/Creatinine Ratio 23 H Glucose 110 H Calculated Osmolality 288 Calcium 8.5 Corrected Calcium 8.8 Total Bilirubin 0.4 AST 66 H ALT 81 H Alkaline Phosphatase 155 H Total Protein 5.8 Albumin 3.6 Globulin 2.2 L Albumin/Globulin Ratio 1.6 Crossmatch See Detail 06/23/24 10:45 WBC RBC Hgb Hct MCV MCH MCHC RDW Std Deviation Plt Count Neut % (Auto) Lymph % (Auto) Cloud % (Auto) Eos % (Auto) Baso % (Auto) Neut # (Auto) Lymph # (Auto) Cloud # (Auto) Eos # (Auto) Baso # (Auto) Immature Gran # (Auto) Absolute Nucleated RBC Immature Gran % Nucleated RBC % PT INR Puncture Site ABG pH ABG pCO2 ABG pO2 ABG HCO3 ABG O2 Saturation ABG Base Excess FiO2 Sodium Potassium 3.2 L Chloride Carbon Dioxide Anion Gap BUN Creatinine Estim Creat Clear Calc eGFR BUN/Creatinine Ratio Glucose Calculated Osmolality Calcium Corrected Calcium Total Bilirubin AST ALT Alkaline Phosphatase Total Protein Albumin Globulin Albumin/Globulin Ratio Crossmatch ABG Interpretation ABG results: 06/20/24 06/20/24 06/20/24 12:44 13:58 18:24 ABG pH 6.91 L* 7.06 L* D 7.22 L D ABG pCO2 61 H 53 H 41 D ABG pO2 115 H 159 H D 66 L D ABG HCO3 12 L 15 L 17 L ABG O2 Saturation 96 99 H 92 ABG Base Excess -19 L -15 L -11 L VBG pH VBG pCO2 VBG pO2 VBG Base Excess 06/20/24 06/21/24 06/21/24 22:03 00:10 04:06 ABG pH 7.14 L* 7.24 L D 7.29 L ABG pCO2 45 33 D 30 L ABG pO2 95 D 116 H D 97 ABG HCO3 15 L 14 L 14 L ABG O2 Saturation 97 99 H 99 H ABG Base Excess -13 L -12 L -11 L VBG pH VBG pCO2 VBG pO2 VBG Base Excess 06/21/24 06/21/24 06/21/24 09:48 13:15 18:33 ABG pH 7.23 L 7.21 L ABG pCO2 36 35 ABG pO2 93 144 H D ABG HCO3 15 L 14 L ABG O2 Saturation 97 99 H ABG Base Excess -11 L -13 L VBG pH 7.27 L VBG pCO2 35 L VBG pO2 37 VBG Base Excess -10 L 06/21/24 06/21/2406/22/24 20:51 22:34 00:39 ABG pH 7.22 L 7.21 L 7.33 L D ABG pCO2 38 38 26 L D ABG pO2 85 D 69 L 94 D ABG HCO3 15 L 15 L 13 L ABG O2 Saturation 96 92 99 H ABG Base Excess -12 L -12 L -12 L VBG pH VBG pCO2 VBG pO2 VBG Base Excess 06/22/24 06/23/24 05:08 04:12 ABG pH 7.36 7.39 ABG pCO2 26 L 27 L ABG pO2 84 77 L ABG HCO3 15 L 16 L ABG O2 Saturation 98 96 ABG Base Excess -10 L -8 L VBG pH VBG pCO2 VBG pO2 VBG Base Excess Quality Measures Quality Measures VTE prophylaxis (on hold ) Advance care planning discussed with:: other Assessment & Plan Assessment Current Active Medications: Generic Name Dose Route Start Last Admin Trade Name Freq PRN Reason Stop Dose Admin Artificial Tears 1 drop 06/23/24 13:29 Artificial Tears 225 Drop/15 Ml Btl BOTH EYES 07/23/24 13:28 Q4HR PRN Dry eyes Fentanyl Citrate 2,500 mcg in 250 mls @ 7.5 mls/hr 06/23/24 16:01 06/23/24 16:08 Sublimaze Inj 2,500 Mcg/250 Ml Bag IV 06/28/24 16:00 75 mcg/hr .Q24H PRN 7.5 mls/hr PER PROTOCOL Administration Protocol 75 MCG/HR Lorazepam 2 mg 06/23/24 13:29 06/23/24 17:35 Lorazepam 2 Mg/Ml Vial IVP 06/25/24 22:03 2 mg Q15M PRN Administration AGITATION Morphine Sulfate 4 mg 06/23/24 17:39 Morphine Sulf Inj 10 Mg/Ml Vial IVP 06/28/24 17:38 Q30M PRN PAIN Scopolamine 1 mg 06/23/24 13:30 06/23/24 13:49 Scopolamine 1 Mg Tdsy TOP 07/23/24 13:29 1 mg Q3D NATHAN Administration Plan The patient is a 68-year-old female, very well known to ks, who has longstanding history of nonischemic cardiomyopathy, chronic systolic and diastolic heart failure, ejection fraction around 40%, status post DIAMOND ASSORTER defibrillator implantation, paroxysmal atrial fibrillation, history of cholecystitis who underwent cholecystectomy was admitted in ICU postcardiac arrest developed ARDS and poor neurological recovery. Goals of care discussion performed by ICU team. Patient's CODE STATUS changed to DNR and transition to comfort care. # Comfort care # Acute encephalopathy # Likely secondary to hypoxic brain injury versus prolonged cardiac arrest # Status post cardiac arrest requiring CPR # Possible PEA arrest versus V. tach/V-fib # History of nonischemic cardiomyopathy and chronic systolic and diastolic heart failure status post DIAMOND ASSORTER-D, EF 40% # Paroxysmal A-fib now 100% paced rhythm # NSTEMI type II likely supply demand ischemia # Shock likely mixed cardiogenic and septic # S/p cardiac arrest # intubated and sedated # Acute hypoxic respiratory failure # Likely secondary to community-acquired pneumonia versus ARDS versus pulm edema # History of GI bleed # Leukocytosis # Normocytic anemia # Coagulopathy requiring FFP and vitamin K # Likely related to warfarin versus DIC # Elevated INR and D-dimers # Possible DIC? # Metabolic acidosis # AMNA on CKD stage IIIb # Elevated transaminases # NSTEMI type II likely supply demand ischemia # History of diabetes ?Patient presented after collapsing in the restroom and 911 was called. Patient underwent CPR for cardiac arrest. ?Chest x-ray showing extensive bilateral pneumonia and pulmonary edema. Right IJ placed. EKG showed 100% paced rhythm. QTc 642. Head CT was negative for bleeding. ?Artemio's cardiac output: 3.1 L ?ICU team gave FFP's and vitamin K given coagulopathy and elevated INR ?Patient ended up having poor neurological recovery. Plan: ? Patient is transition to comfort care after goals of care discussion with the family. ? Continue scopolamine as needed ? Continue comfort care measures and morphine 4 mg every 30 minutes as needed Thank you very much for consulting cardiology team. -- Plan of care discussed with inspector raw quartz, Dr. Gibran Vega MD, PGY 2
[2024-06-23] MEDS: MORPHINE SULF INJ 10 MG/ML VIAL 4 MG IVP ×5 (17:48→23:18)
--- NOTE | 2024-06-23 18:46 | PD.RESEVENT ---
Documentation for date of: 06/23/24 Event Note Event Note: 06/23/24 had a discussion with family members and patient was placed on comfort care. She has been provided with pain management, Ativan for seizures. Her blood draws and antibiotics were discontinued. She was extubated 06/1820. She is planned to be transferred to the [facility] to continue comfort care. In case she will be downgraded, hospitalist team is to assume care starting 06/24/2024. Plan of care discussed with attending Dr. Larios, PGY-[address] Keyes and PGY-[address] Keyes. Cyndy Ramirez MD, PGY 1.
[2024-06-23] MEDS: fentaNYL 2,500 MCG/250 ML BAG 2,500 MCG/250 ML BAG 30 MCG IV ×2 (19:00→20:22)
[2024-06-23] MEDS: Artificial Tears 225 DROP/15 ML BTL BOTH EYES (19:39)
[2024-06-23] MEDS: Morphine IV Drip 100mg/100ml 100 ML IV (20:13)
[2024-06-24] VITALS: PULSE 105; RESP 14; O2SAT 74
[2024-06-24] MEDS: LORazepam 2 MG/ML VIAL IVP ×2 (00:30→02:43)
[2024-06-24] MEDS: Artificial Tears 225 DROP/15 ML BTL BOTH EYES (02:43)
--- NOTE | 2024-06-24 03:36 | DES_ITS ---
Documentation for date of: 06/24/24 Pronouncement Note Date and Time of Date of : 06/24/24 Time of : 03:34 PCOD Preliminary cause of : Cardiac arrest Contributing Factors (1) Cardiac arrest: (2) HFrEF (heart failure with reduced ejection fraction): (3) History of atrial fibrillation: Summary Additional details: Was called by RN at bedside due to decreased breathing rate. Patient was in comfort care. Once at bedside it was notable that the patient was not breathing anymore. However on the monitor there was showing a rhythm that was being paced due to the patient having an AICD. A magnet was placed on the patient's chest to deactivate the AICD once the magnet was placed there was no rhythm on the monitor. Patient had no spontaneous breathing on auscultation, no heart rate was appreciated on auscultation, no radial or jugular pulses were present, pupils were dilated and fixed, not responding to painful stimuli. Patient's was pronounced on 06/24/2024 at 033 4 AM. Family was present at bedside. Condolences were given. Additional Data Confirmation of : no pulse, no respirations, no heart sounds and pupils fixed and dilated Family: at bedside Attending physician: Brynn Larios MD Was code activated?: No Autopsy requested?: No passport application examiner notified?: No Organ bank notified?: Yes Advance directives: No
--- NOTE | 2024-06-24 04:04 | PC.NURSE ---
Called [facility] and spoke to Rahel Starkey to notify that patient has passed.
--- NOTE | 2024-06-24 04:26 | PC.NURSE ---
[facility] contacted my Lorrie MT @ [phone]
--- NOTE | 2024-06-24 04:58 | PC.NURSE ---
TOD 0334, IV, R IJ TLC, marsh removed.
--- NOTE | 2024-06-24 05:27 | DES_ITS ---
<Statement entered by Todd Arias MD - 06/24/24 09:32> I was present for the essential components of the history, physical examination, diagnosis, and treatment plan with the resident. I have reviewed the documentation, discussed the case with the resident and agree with the patient's care as documented by the resident. Todd Arias MD Documentation for date of: 06/24/24 Summary Date and Time Date of admission: 06/20/24 14:42 Date of : 06/24/24 Time of : 03:34 Summary Details: Was called by RN at bedside due to decreased breathing rate. Patient was in comfort care. Once at bedside it was notable that the patient was not breathing anymore. However on the monitor there was showing a rhythm that was being paced due to the patient having an AICD. A magnet was placed on the patient's chest to deactivate the AICD once the magnet was placed there was no rhythm on the monitor. Patient had no spontaneous breathing on auscultation, no heart rate was appreciated on auscultation, no radial or jugular pulses were present, pupils were dilated and fixed, not responding to painful stimuli. Patient's was pronounced on 06/24/2024 at 033 4 AM. Family was present at bedside. Condolences were given. Hospital Course: This is a 68yo F who was brought to the ER s/p cardiac arrest. Apparently she was in the bathroom earlier today and had a syncopal event. EMS was called and on arrival she was found to be pulseless and CPR was initiated. ROSC was achieved after 3 rounds of epi. During transit pulse was lost once more and CPR resumed. Pt was undergoing CPR on arrival to the ER. ROSC was achieved after arrival and pt felt to have had a total downtime of ~20min. Pts initial rhythm is unknown. In the ER labs were obtained after ROSC as well as CXR. CXR shows diffuse fluffy infiltrates and labs are significant for severe acidosis. Rectal exam done in the ER showed a pos hemoccult. pt seen in ER room 2. Per family pt has has SOB for the last 2 days. She visited her PCP and had labs and a CXR done. Has had changes to her cardiac regimen over the last 2 months. This AM very SOB, went to the bathroom and called out for help then collapsed. 06/21-overnight has had a decrease in her vasopressor requirements. Did have occasional episodes with desatting on the vent. ABGs were followed and I was called overnight on several occasions for additional ventilator management. She continues to have ongoing myoclonic jerks. She has had an adequate urinary output. She remains afebrile 06/22-overnight patient developed worsening respiratory acidosis, several vent changes were made. The decision was made to paralyze her at around midnight. Patient required Levophed briefly for about an hour overnight however this morning is off of vasopressors. She was given Lasix with good urinary output. There has been no change in her mental status 06/23- no acute overnight events, this AM the pt developed VT x3 -> initial event was defibrillated after which family decided on change of CODE STATUS. The patient was made DNR. Discussion with family members and patient was placed on comfort care. She has been provided with pain management, Ativan for seizures. Her blood draws and antibiotics were discontinued. 06/24- Was called by RN at bedside due to decreased breathing rate. Patient was in comfort care. Once at bedside it was notable that the patient was not breathing anymore. However on the monitor there was showing a rhythm that was being paced due to the patient having an AICD. A magnet was placed on the patient's chest to deactivate the AICD once the magnet was placed there was no rhythm on the monitor. Patient had no spontaneous breathing on auscultation, no heart rate was appreciated on auscultation, no radial or jugular pulses were present, pupils were dilated and fixed, not responding to painful stimuli. Patient's was pronounced on 06/24/2024 at 033 4 AM. Family was present at bedside. Condolences were given. Additional Data Confirmation of as documented by pronouncing clinician: no pulse, no respirations, no heart sounds and pupils fixed and dilated Family: at bedside Attending physician: Brynn Larios MD Was code activated?: No Autopsy requested?: No chief bank examiner notified?: No Organ bank notified?: Yes Advance directives: No Hospice patient?: No Visit Providers Provider Primary care physician: Niyah Calix MD Diagnosis PCOD Cause of : Cardiac arrest Contributing Factors (1) Cardiac arrest: (2) HFrEF (heart failure with reduced ejection fraction): (3) History of atrial fibrillation: Discharge Plan Plan Patient Disposition: Disposition Comment: Stable for admit to ICU Prescriptions/Referrals Referrals: Niyah Calix MD [Primary Care Provider] - Patient/Caregiver Discharge Instructions Print Language: Albanian
== END 2024-06-24 03:34 | disposition expired ==
LOC: SERX 13:15 → SERHOLD 14:59 → S2SX 15:44
PROVIDERS: Student in an Organized Health Care Education/Training Program; Admitting Provider Internal Medicine; Emergency Provider Emergency Medicine; PCP Family Medicine; Visit Provider Internal Medicine
DX: R57.9 Shock, unspecified (principal); J18.9 Pneumonia, unspecified organism; I21.A1 Myocardial infarction type 2; J96.01 Acute respiratory failure with hypoxia; N17.9 Acute kidney failure, unspecified; E87.1 Hypo-osmolality and hyponatremia; I50.42 Chronic combined systolic (congestive) and diastolic (congestive) heart failure; G93.1 Anoxic brain damage, not elsewhere classified; I47.20 Ventricular tachycardia, unspecified; D68.9 Coagulation defect, unspecified; I13.0 Hypertensive heart and chronic kidney disease with heart failure and stage 1 through stage 4 chronic kidney disease, or unspecified chronic kidney disease; I46.9 Cardiac arrest, cause unspecified; Z95.810 Presence of automatic (implantable) cardiac defibrillator; I27.20 Pulmonary hypertension, unspecified; I42.8 Other cardiomyopathies; I48.0 Paroxysmal atrial fibrillation; Z79.01 Long term (current) use of anticoagulants; G25.3 Myoclonus; Z66 Do not resuscitate; Z51.5 Encounter for palliative care; N18.32 Chronic kidney disease, stage 3b; E87.6 Hypokalemia; D69.6 Thrombocytopenia, unspecified; Z88.0 Allergy status to penicillin; E11.22 Type 2 diabetes mellitus with diabetic chronic kidney disease; D63.1 Anemia in chronic kidney disease
CPT/HCPCS: 36415; 36430; 36600; 70450; 71045; 80048; 80053; 80202; 80307; 80320; 81001; 82436; 82803; 83605; 83735; 83880; 84100; 84132; 84133; 84300; 84443; 84484; 85007; 85014; 85018; 85025; 85027; 85379; 85384; 85610; 85730; 86850; 86900; 86901; 86920; 86923; 86927; 87040; 87081; 87086; 87205; 87811; 92950; 93005; 93306; 94002; 94003; 94640; 95816; 96365; 96366; 96374; 99291; A9270; J0171; J0692; J0696; J1815; J1940; J2060; J2250; J2270; J2470; J2704; J3010; J3370; J3372; J3430; J3475; J3480; J3490; J7040; J7050; J7120; P9016; P9060; G0480; J1836